=== PATIENT | male | born 1945 | race Caucasian/White ===

== ENCOUNTER 2019-04-06 11:06 | Outpatient (CLI) | payer MEDICARE, OTHER, SELFPAY | END 2019-04-06 11:07 | disposition home or self-care (01) | LOC: RT 11:09 | PROVIDERS: Family Provider Family Medicine; PCP Family Medicine; Visit Provider Internal Medicine Critical Care Medicine | DX: J45.909 Unspecified asthma, uncomplicated (principal) | CPT/HCPCS: 94010; 94726; 94729 ==

== ENCOUNTER 2019-06-13 12:30 | Outpatient (CLI) | payer MEDICARE, OTHER, SELFPAY ==
--- NOTE | 2019-06-13 13:30 | USCV_ITS ---
Reid Nieves Age: 73 Gender: M : 1945 Exam Date: 06/13/2019 12:54 Ordering Phys: Mariposa Alfonso MD Technologist: Ricki Gaytan Exam Location: [facility] [place] Indication: BOVINE MV PROS BP: 150 / 92 HR: 45 Rhythm: Sinus Technical Quality: Suboptimal MEASUREMENTS (Male / Female) Normal Values 2D ECHO LV Diastolic Diameter PLAX 4.7 cm 4.2 - 5.9 / 3.9 - 5.3 cm LV Systolic Diameter PLAX 3.0 cm IVS Diastolic Thickness 0.9 cm 0.6 - 1.0 / 0.6 - 0.9 cm IVS Systolic Thickness 1.4 cm LVPW Diastolic Thickness 1.3 cm 0.6 - 1.0 / 0.6 - 0.9 cm LVPW Systolic Thickness 1.3 cm LVOT Diameter 2.3 cm LV Ejection Fraction 2D Teich 64.4 % LV Ejection Fraction MOD 2C 66.9 % LV Ejection Fraction 2C AL 67.4 % LA Diameter 5.3 cm LA Width 4.3 cm LA Height 5.3 cm RA Width 4.5 cm RA Height 5.1 cm M-MODE LV Diastolic Diameter MM 5.9 cm 4.2 - 5.9 / 3.9 - 5.3 cm LV Systolic Diameter MM 3.9 cm LV Ejection Fraction MM Teich 61.5 % IVS Diastolic Thickness MM 1.2 cm 0.6 - 1.0 / 0.6 - 0.9 cm IVS Systolic Thickness MM 1.9 cm LVPW Diastolic Thickness MM 1.2 cm 0.6 - 1.0 / 0.6 - 0.9 cm LVPW Systolic Thickness MM 1.8 cm RV Diastolic Diameter MM 2.0 cm Aortic Annulus Diameter 4.5 cm LA Ao Ratio MM 1.2 DOPPLER AV Peak Velocity 119.0 cm/s LVOT Peak Velocity 94.0 cm/s AV Area Cont Eq vti 2.8 cm squared AV Area Cont Eq pk 3.3 cm squared MV Peak Velocity 177.0 cm/s MV Area PHT 1.2 cm squared Mitral E to A Ratio 1.0 MV E' Velocity 5.0 cm/s Mitral E to MV E' Ratio 33.3 Mitral E to LV E' Lateral Ratio 30.1 Mitral E to LV E' Septal Ratio 38.2 TR Peak Velocity 374.0 cm/s TR Peak Gradient 55.8 mmHg TV Peak E Velocity 97.0 cm/s Right Atrial Pressure 3.0 mmHg Pulmonary Artery Systolic Pressu 59.0 mmHg PV Peak Velocity 84.0 cm/s FINDINGS Left Ventricle Normal left ventricular size, systolic function and wall thickness, with no regional wall motion abnormalities. Grade I/IV diastolic dysfunction (abnormal relaxation filling pattern), normal to mildly elevated filling pressures. Left ventricular ejection fraction is estimated at 55 %. Right Ventricle Normal right ventricular size and systolic function. Moderate pulmonary hypertension, RVSP 59 mmHg. Right Atrium Mildly increased right atrial size. Left Atrium Mildly increased left atrial size. Mitral Valve The mitral valve appears to be a bioprosthetic device. It is properly seated and appears to be functioning normally. No obvious stenosis or regurgitation. Aortic Valve Structurally normal trileaflet aortic valve. Trace aortic valve regurgitation. Tricuspid Valve Structurally normal tricuspid valve. Moderate tricuspid valve regurgitation. Pulmonic Valve Pulmonic valve not well visualized. Moderate pulmonary valve regurgitation. Pericardium Normal pericardium without effusion. Aorta Normal ascending aorta dimension. CONCLUSIONS Normal left ventricular size, systolic function and wall thickness, with no regional wall motion abnormalities. Grade I/IV diastolic dysfunction (abnormal relaxation filling pattern), normal to mildly elevated filling pressures. Left ventricular ejection fraction is estimated at 55 %. Normal right ventricular size and systolic function. Moderate pulmonary hypertension, RVSP 59 mmHg. Mildly increased right atrial size. Mildly increased left atrial size. The mitral valve appears to be a bioprosthetic device. It is properly seated and appears to be functioning normally. No obvious stenosis or regurgitation. Dr. Nicko Sanders MD (Electronically Signed) Final Date: 14 June 2019 07:59 S
--- NOTE | 2019-06-13 14:30 | CT_ITS ---
WS: [id number] CT CHEST TECHNIQUE: Noncontrast CT of the chest with coronal and sagittal reformatted images. CLINICAL INFORMATION: shortness of breath COMPARISON: CT June 19, 2017 DLP: 919.[address] scans at [facility] use at least one of these dose optimization techniques: automat ed exposure control; mA and/or kV adjustment per patient size (includes targeted exams where dose is matched to clinical indication); or iterative reconstruction. FINDINGS: Again seen are multiple right upper and right middle lobe noncalcified subcentimeter pulmonary nodule s. Largest nodules measure approximately 4 mm. Notable nodule right lung apex measuring 4 mm is uncha nged. 2 anterior right upper lobe nodules have progressed slightly in size with a new nodule today. T he largest measures 4.1 mm. Stable tiny right middle lobe and subcentimeter nodules along the right fissure. New tiny nodule demarcus g the right minor fissure. Additional new groundglass nodules right lower lobe measuring 3-4 mm. No definite left-sided nodules. No mediastinal or hilar lymphadenopathy. Postoperative changes at the GE junction. Small esophageal hiatal hernia. Adrenal glands are normal.Mitral valve prosthesis. Mild aortic calcification. Prior sternotomy. Thoracic kyphosis with chronic anterior wedging in the m id thoracic spine. IMPRESSION: 1. Several noncalcified pulmonary nodules in the right upper lobe, right middle lobe and right lower lobe the largest measuring approximately 4 mm. A few new noncalcified nodules today. Recommend 6-12 month follow-up. 2. No mediastinal or hilar lymphadenopathy. 3. Postoperative changes at the GE junction with small esophageal hiatal hernia. 4. Prior sternotomy with mitral valve prosthesis.
== END 2019-06-13 12:31 | disposition home or self-care (01) ==
LOC: US 12:31
PROVIDERS: Family Provider Family Medicine; PCP Family Medicine; Visit Provider Internal Medicine Critical Care Medicine
DX: R06.02 Shortness of breath (principal); R91.8 Other nonspecific abnormal finding of lung field; K44.9 Diaphragmatic hernia without obstruction or gangrene; I51.7 Cardiomegaly
CPT/HCPCS: 71250; 93306

== ENCOUNTER → 2019-10-10 14:00 | Outpatient (BNVA) | payer MEDICARE, OTHER, SELFPAY | PROVIDERS: Family Provider Family Medicine; PCP Family Medicine; Visit Provider Family Medicine | DX: Z11.59 Encounter for screening for other viral diseases (principal) | CPT/HCPCS: 87635 ==

== ENCOUNTER → 2019-10-11 14:36 | Outpatient (BNVA) | payer MEDICARE, OTHER, SELFPAY | PROVIDERS: Family Provider Family Medicine; PCP Family Medicine; Visit Provider Nurse Practitioner Family | DX: R05 Cough (principal); R06.00 Dyspnea, unspecified; R50.9 Fever, unspecified; Z11.59 Encounter for screening for other viral diseases | CPT/HCPCS: 87635 ==

== ENCOUNTER 2020-02-20 13:41 | Outpatient (CLI) | payer MEDICARE, OTHER, SELFPAY ==
--- NOTE | 2020-02-20 13:46 | XR_ITS ---
WS: [id number] PA and lateral chest, 02/20/2020 Clinical Data: Shortness of breath Comparison: PA and lateral chest, 06/03/2017. Findings: No nodules, masses or effusions are seen. The diaphragms are flattened. There are midline s ternotomy sutures. There is an artificial valve in position. The heart is normal and the aortic arch shows calcification. No nodules, masses or effusions are seen. There is degenerative change of the th oracic vertebral bodies. XR/XR chest 2V* [id number] Impression: Atherosclerosis and hyperinflation.
== END 2020-02-20 13:42 | disposition home or self-care (01) ==
LOC: RAD 13:44
PROVIDERS: Family Provider Family Medicine; PCP Family Medicine; Visit Provider Internal Medicine Critical Care Medicine
DX: R06.00 Dyspnea, unspecified (principal); I70.90 Unspecified atherosclerosis
CPT/HCPCS: 71046

== ENCOUNTER 2020-03-19 09:51 | Outpatient (CLI) | payer MEDICARE, OTHER, SELFPAY ==
[2020-03-19 10:28] LABS: Basophils % 0.4 %; Eosinophils # 0.1 10^3/uL (0.0-0.8); Eosinophils % 1.3 %; Hematocrit 42.2 % (42.0-52.0); Hemoglobin 13.6 g/dL (11.7-16.6); Lymphocytes # 1.5 10^3/uL (0.8-4.8); Lymphocytes % 28.1 %; Mean Corpuscular HGB Conc 32.2 g/dL (30.0-36.0); Mean Corpuscular Hemoglobin 30.9 pg (28.0-34.0); Mean Corpuscular Volume 95.9 fL (80-94); Mean Platelet Volume 11.8 fL (7.4-10.4); Monocytes # 0.7 10^3/uL (0.2-0.9); Monocytes % 13.1 %; Neutrophils # 3.04 10^3/uL (1.8-7.7); Neutrophils % 56.9 %; Nucleated Red Blood Cells % 0 %; Platelet Count 202 10^3/cmm (130-400); Red Cell Distribution Width 12.2 % (12.1-15.1); White Blood Count 5.3 10^3/uL (4.0-10.0)
== END 2020-03-19 09:52 | disposition home or self-care (01) ==
PROVIDERS: PCP Family Medicine; Visit Provider Internal Medicine Critical Care Medicine
DX: R06.02 Shortness of breath (principal)
CPT/HCPCS: 36415; 85025

== ENCOUNTER 2020-06-06 09:13 | Outpatient (CLI) | payer MEDICARE, OTHER, SELFPAY ==
--- NOTE | 2020-06-06 09:30 | USCV_ITS ---
Reid Nieves Age: 74 Gender: M : 1945 Exam Date: 06/06/2020 09:29 Ordering Phys: Papi Blanca M.D ([email or web address]) Technologist: Arabella Levin Exam Location: [facility] [place] Indication: MV REPLACEMENT BP: 118 / 86 HR: 50 Rhythm: Sinus Technical Quality: Adequate MEASUREMENTS (Male / Female) Normal Values 2D ECHO LV Diastolic Diameter PLAX 4.4 cm 4.2 - 5.9 / 3.9 - 5.3 cm LV Systolic Diameter PLAX 2.7 cm LV Chamber Size 3.7 cm IVS Diastolic Thickness 1.6 cm 0.6 - 1.0 / 0.6 - 0.9 cm IVS Systolic Thickness 1.5 cm LVPW Diastolic Thickness 1.7 cm 0.6 - 1.0 / 0.6 - 0.9 cm LVPW Systolic Thickness 2.7 cm RV Chamber Size 3.7 cm LVOT Diameter 2.1 cm LV Ejection Fraction 2D Teich 57.8 % LV Ejection Fraction MOD 2C 48.3 % LV Ejection Fraction 2C AL 50.3 % LA Diameter 5.7 cm LA Width 4.8 cm LA Height 4.2 cm RA Width 4.1 cm RA Height 4.7 cm Aorta at Sinotubular Diameter 3.6 cm M-MODE LV Diastolic Diameter MM 6.3 cm 4.2 - 5.9 / 3.9 - 5.3 cm LV Systolic Diameter MM 4.5 cm LV Ejection Fraction MM Teich 53.8 % IVS Diastolic Thickness MM 1.8 cm 0.6 - 1.0 / 0.6 - 0.9 cm IVS Systolic Thickness MM 1.5 cm LVPW Diastolic Thickness MM 1.6 cm 0.6 - 1.0 / 0.6 - 0.9 cm LVPW Systolic Thickness MM 1.5 cm Aortic Annulus Diameter 4.2 cm LA Ao Ratio MM 1.5 MV E Point Septal Separation 0.9 cm DOPPLER AV Peak Velocity 134.0 cm/s LVOT Peak Velocity 103.0 cm/s AV Area Cont Eq vti 2.8 cm squared AV Area Cont Eq pk 2.6 cm squared MV Peak Velocity 212.0 cm/s MV Area PHT 1.3 cm squared Mitral E to A Ratio 2.6 MV E' Velocity 137.8 cm/s Mitral E to MV E' Ratio 38.3 Mitral E to LV E' Lateral Ratio 41.7 Mitral E to LV E' Septal Ratio 35.4 TR Peak Velocity 244.1 cm/s TR Peak Gradient 23.8 mmHg TR Mean Velocity 180.7 cm/s TR Mean Gradient 15.5 mmHg TR Velocity Time Integral 98.6 cm TV Peak E Velocity 43.0 cm/s PV Peak Velocity 65.0 cm/s RV Acceleration Time 0.1 s RV Ejection Time 0.4 s RV AcT/ET 0.3 FINDINGS Left Ventricle Normal left ventricular size. LV systolic function is normal with EF of 50-55%. Septal motion is consistent with prior cardiac surgery. Diastolic function is abnormal Right Ventricle The right ventricle is normal in size and function. Right Atrium Not well visualized Left Atrium The left atrium is dilated Mitral Valve There is a thickened bioprosthetic mitral valve with mild to moderate mitral stenosis and a mean gradient of 6 mmHg across mitral valve. There is no mitral regurgitation. Aortic Valve Thickened aortic valve without significant sclerosis. There is no aortic regurgitation. Tricuspid Valve Structurally normal tricuspid valve without significant stenosis or regurgitation. Insufficient TR jet to calculate RVSP Pulmonic Valve Grossly normal Pericardium Normal pericardium without effusion. Aorta Aortic root is dilated CONCLUSIONS LV systolic function is normal with EF of 50 to 55%. Diastolic function is abnormal. There is a thickened bioprosthetic mitral valve with mild to moderate mitral stenosis and a mean gradient of 6 mmHg across mitral valve. There is no mitral regurgitation. Aortic root is dilated Compared to prior echocardiogram from 06/13/2019, patient now has mild to moderate mitral stenosis Papi Blanca MD (Electronically Signed) Final Date: 17 June 2020 16:56 S
== END 2020-06-06 09:14 | disposition home or self-care (01) ==
LOC: US 09:15
PROVIDERS: PCP Family Medicine; Visit Provider Internal Medicine
DX: Z95.4 Presence of other heart-valve replacement (principal); I05.9 Rheumatic mitral valve disease, unspecified
CPT/HCPCS: 93306

== ENCOUNTER 2020-06-18 10:52 | Outpatient (CLI) | payer MEDICARE, OTHER, SELFPAY ==
[2020-06-18 12:06] LABS: Alanine Aminotransferase 18 U/L (0-41); Alkaline Phosphatase 86 IU/L (40-130); Aspartate Amino Transferase 27 U/L (0-40); Blood Urea Nitrogen 14 mg/dL (8-23); Calcium 8.8 mg/dL (8.5-10.5); Carbon Dioxide 25 mmol/L (22-29); Chloride 108 mmol/L (98-107); Globulin 2.8 g/dL (1.3-4.6); Glucose 83 mg/dL (65-115); Osmolality Calculated 292 mOsm/kg (285-295); Sodium 141 mmol/L (136-145); Total Bilirubin 1.1 mg/dL (0.15-1.2); Total Protein 6.8 g/dL (6.6-8.7)
== END 2020-06-18 10:53 | disposition home or self-care (01) ==
LOC: LAB 11:00
PROVIDERS: PCP Family Medicine; Visit Provider Internal Medicine Critical Care Medicine
DX: R06.02 Shortness of breath (principal)
CPT/HCPCS: 36415; 80053

== ENCOUNTER → 2020-07-02 16:50 | Outpatient (BNVA) | payer MEDICARE, OTHER, SELFPAY | PROVIDERS: PCP Family Medicine; Visit Provider Internal Medicine | DX: R55 Syncope and collapse (principal); I73.9 Peripheral vascular disease, unspecified; I51.89 Other ill-defined heart diseases; G47.33 Obstructive sleep apnea (adult) (pediatric); Z99.89 Dependence on other enabling machines and devices; I27.20 Pulmonary hypertension, unspecified; R06.02 Shortness of breath; N40.0 Benign prostatic hyperplasia without lower urinary tract symptoms; R06.00 Dyspnea, unspecified; Z95.3 Presence of xenogenic heart valve; Z87.891 Personal history of nicotine dependence | CPT/HCPCS: 80048; 83880; 84153 ==

== ENCOUNTER 2020-07-05 12:06 | Emergency (ER) | payer MEDICARE, OTHER, SELFPAY ==
[2020-07-05 12:45] VITALS: BP 120/75; PULSE 51; RESP 18; TEMP 36.8; O2SAT 97; BMI 33.7
--- NOTE | 2020-07-05 13:45 | ED_ITS ---
HPI - Male Genitourinary General: Chief complaint: Urogenital-Male Stated complaint: CANNOT URINATE Time Seen by Provider: 07/05/20 13:11 Limitations: no limitations History of Present Illness: HPI Narrative: 74-year-old male who last urinated at 8 PM last night was only a small dribble. He has been having some urinary issues recently saw his provider who had ordered some outpatient labs and is scheduling the patient to see urology but they cannot get in for about a month. He is never had known prostate problems. Patient's wonder if he possibly has infections as he felt chilled the past 2 days denies any nausea vomiting amanda rrhea chest pain cough fevers or shortness of breath however. He feels like his bladder is distended Review of Systems General: Reports: 10 or more systems reviewed and unremarkable except in HPI and below Narrative: General: denies fatigue, fever some mild chills HEENT: denies ear pain, denies nasal congestion, denies vision changes, denies sore throat Neck: denies masses or pain Resp: denies cough, denies shortness of breath, denies pleuritic pain Cardio: denies chest pain, denies edema GI: denies abdominal pain, denies N/V/D, denies black/tarry or bloody stools : denies hematuria, denies dysuria + hesitancy, distension, decreased output Neuro: denies headache, denies dizziness, denies motor or sensory changes Musculoskeletal: denies pain, denies swelling Skin: denies rashes Psych: denies SI or HI Endocrine: denies thyroid symptoms, denies lymphadenopathy all over ROS reviewed and patient denies [facility] ED PFSH: Medical History Diastolic dysfunction Hordeolum externum (stye) DENAE on CPAP PAD (peripheral artery disease) Pulmonary HTN Syncope Surgical History H/O mitral valve replacement with tissue graft Family History Mother Stroke Grandfather CAD (coronary artery disease) Father Tuberculosis Social History Smoking and tobacco status: former smoker Quit status (tobacco): has quit using tobacco Year quit tobacco: 1966 - 1PPD x 2 Years Second hand smoke exposure: No Smoking risk assessment/counseling performed?: No Alcohol intake: former Year of sobriety/quit date alcohol: 1985 Desire information about alcohol rehabilitation?: No Counseling given: No Desire information about substance/drug rehabilitation?: No Counseling given: No Lives independently: Yes Household members: spouse Marital status: service: Yes branch: [employer] Current occupational status: retired History of recent travel: No Current gender identity: Male Physical Exam Narrative: EXAM NARRATIVE: General: a/o/3, no distress Head: atraumatic HEENT: normal eyes, normal conjunctiva, normal hearing, normal external nose, normal mouth, mucous membranes moist Neck: FROM, trachea midline Chest: normal expansion, no gross deformities Resp: normal speech, no retractions, no accessory muscle use, CTA bilaterally Cardio: regular rate and rhythm and no murmur, no peripheral edema, normal peripheral pulses GI: soft, suprapubic fullness and tenderness, no guarding normal BS : deferred Musculoskeletal: FROM, no pain or gross deformities Neuro: a/o appropriate for age, no gross motor or sensory deficitys, CN II-XII grossly intact, normal coordination, normal speech Skin: no rashes Psych: cooperative, normal mood and effect Course Vital Signs: Vital signs: Vital Signs Temperature 98.3 F 07/05/20 12:45 Pulse Rate 51 L 07/05/20 12:45 Respiratory Rate 18 07/05/20 12:45 Blood Pressure 120/75 07/05/20 12:45 Pulse Oximetry 97 07/05/20 12:45 MDM - Male MDM Narrative: Medical decision making narrative: Reviewed patient's labs he had chemistries done yesterday as well as a PSA which was normal. He does appear to be distended we will place a Gongora catheter and then once he is drained we will clamp it and send off a fresh urine patient would like a CBC checked as he was afraid maybe has infection he does have a bovine valve replacement and wants to make sure he does not have any type of other issues associated with that. We will place him on Flomax Patient had a liter of urine out his urinalysis was negative his CBC was normal I do not see indication for antibiotics at this time discussed with the patient and his they need to either call their primary care or call urology to have the catheter removed in about a week we can put him on daily Flomax Differential Diagnosis: Urogenital Male Differential Diagnosis: Likely urinary tract infection and acute retention of urine Medical Records: Attestation: I reviewed the patient's medical records. Lab Data: Attestation: I reviewed the patient's lab results. Labs: Lab Results 07/05/20 07/05/20 Range/Units 13:53 13:53 WBC 6.6 (4.0-10.0) 10^3/ uL RBC 4.59 (4.1-5.3) 10^6/u L Hgb 14.2 (11.7-16.6) g/dL Hct 42.8 (42.0-52.0) % MCV 93.2 (80-94) fL MCH 30.9 (28.0-34.0) pg MCHC 33.2 (30.0-36.0) g/dL RDW 12.5 (12.1-15.1) % Plt Count 234 (130-400) 10^3/c mm MPV 11.7 H (7.4-10.4) fL Neut % (Auto) 56.1 % Lymph % (Auto) 30.4 % [place] % (Auto) 12.0 % Eos % (Auto) 0.9 % Baso % (Auto) 0.3 % Neut # (Auto) 3.72 (1.8-7.7) 10^3/u L Lymph # (Auto) 2.0 (0.8-4.8) 10^3/u L [place] # (Auto) 0.8 (0.2-0.9) 10^3/u L Eos # (Auto) 0.1 (0.0-0.8) 10^3/u L Baso # (Auto) 0.0 (0.0-0.1) 10^3/u L Nucleated RBC % (a uto) 0 % Nucleated RBCs # 0.0 /100WBC Urine Color Yellow (Yellow) Urine Appearance Clear (CLEAR) Urine pH 5 (5-7) Ur Specific Gravit y 1.015 (1.005-1.030) Urine Protein Neg (Negative) Urine Glucose (UA) Norm (Normal) Urine Ketones Negative (Negative) Urine Blood Neg (Negative) Urine Nitrate Negative (Negative) Urine Bilirubin Neg (Negative) Urine Urobilinogen 1 H (Negative) mg/dL Ur Leukocyte Flavia ase Negative (Negative) Urine RBC None (0-2) /hpf Urine WBC None (0-5) /hpf Ur Squamous Epith Cells None (0-5) /hpf Amorphous Sediment Not Reportable Urine Bacteria None (NONE) /hpf Discharge Plan Discharge Patient Disposition: Home Clinical Impression: Acute urinary retention Condition: Stable Prescriptions: New tamsulosin [Flomax] 0.4 mg capsule 0.4 mg PO DAILY Qty: 30 RF: 0 No Action albuterol sulfate [ProAir HFA] 90 mcg/actuation HFA aerosol inhaler 2 puff INHALATION Q6H PRN (Reason: Shortness Of Breath) RF: 0 tramadol 50 mg tablet 50 mg PO PRN RF: 0 aspirin 81 mg tablet,delayed release (DR/EC) 81 mg PO QAM RF: 0 simvastatin 20 mg tablet 20 mg PO QPM RF: 0 cyanocobalamin (vitamin B-12) 2 tab PO DAILY RF: 0 albuterol sulfate 2.5 mg /3 mL (0.083 %) solution for nebulization 2.5 mg inhalation TID RF: 0 Symbicort 160-4.5 mcg/actuation HFA aerosol inhaler 2 puff INHALATION BID 30 Days Qty: 10.2 RF: 3 Alive Mens 1 tab PO DAILY RF: 0 Viagra 25 mg Tablet 25 mg PO PRN RF: 0 trazodone 150 mg tablet 150 mg PO BEDTIME PRN (Reason: Sleep) RF: 0 magnesium-potassium 1 tab PO DAILY RF: 0 vitamin E 3 cap PO DAILY RF: 0 spironolactone 25 mg tablet 25 mg PO QPM RF: 0 montelukast 10 mg tablet 10 mg PO QPM RF: 0 Lasix 20 mg tablet 20 mg PO QAM RF: 0 metoprolol tartrate 25 mg tablet 12.5 mg PO BID RF: 0 Discharge Orders: Discharge ED (Routine); Ordered 07/05/20 Ordered By: Nicole Beyer Referrals: Markel Valero MD [Primary Care Provider] - Patient Instructions: Urinary Retention in Men (ED), Gongora Catheter Placement and Care (ED) Activity Restrictions/Additional Instructions: You were given your first dose of medication in the ER so start your prescription tomorrow. Recommend you call your primary care provider and/or urology and let them know you had a catheter placed and we recommend removal in about a week and it is recommended that you have a morning appointment for removal that way you have the day to determine if you have any further urinary retention. Return to the ER if you have catheter problems and/or if you notice pain or bleeding or if it is not draining Continue your other medications Thank you for choosing [facility] for your healthcare needs today. Please realize this is an emergency room and that we are providing you with a medical screening exam and this may not be complete and all inclusive of all the testing and or work up that you may need to determine your ailment or severity of your illness. It is very important that you follow up as instructed or that you return to the Emergency Department should you have concerns or if your condition changes or worsens in any way. Coding Level of Care Code ED Check Inspector for Roberto Carlos Boogie
[2020-07-05 14:03] LABS: Basophils % 0.3 %; Eosinophils # 0.1 10^3/uL (0.0-0.8); Eosinophils % 0.9 %; Hematocrit 42.8 % (42.0-52.0); Hemoglobin 14.2 g/dL (11.7-16.6); Lymphocytes % 30.4 %; Mean Corpuscular HGB Conc 33.2 g/dL (30.0-36.0); Mean Corpuscular Hemoglobin 30.9 pg (28.0-34.0); Mean Corpuscular Volume 93.2 fL (80-94); Mean Platelet Volume 11.7 fL (7.4-10.4); Monocytes # 0.8 10^3/uL (0.2-0.9); Neutrophils # 3.72 10^3/uL (1.8-7.7); Neutrophils % 56.1 %; Nucleated Red Blood Cells % 0 %; Platelet Count 234 10^3/cmm (130-400); Red Blood Count 4.59 10^6/uL (4.1-5.3); Red Cell Distribution Width 12.5 % (12.1-15.1); White Blood Count 6.6 10^3/uL (4.0-10.0)
[2020-07-05 14:16] LABS: Bilirubin Urine Neg (Negative); Blood Urine Neg (Negative); Glucose Urine UA Norm (Normal); Ketones Urine Negative (Negative); Leukocyte Esterase Urine Negative (Negative); Nitrate Urine Negative (Negative); Protein Urine Neg (Negative); Specific Gravity, Urine 1.015 (1.005-1.030); Urine Appearance Clear (CLEAR); Urine Color Yellow (Yellow); Urobilinogen Urine 1 mg/dL (Negative); pH Urine 5 (5-7)
[2020-07-05] MEDS: tamsulosin 0.4 mg Capsule PO (15:29)
--- NOTE | 2020-07-05 15:32 | PC.NURSE ---
Pt reports continued relief, no needs identified, will continue to monitor.
== END 2020-07-05 16:07 | disposition home or self-care (01) ==
PROVIDERS: Emergency Provider Emergency Medicine; PCP Family Medicine
DX: R33.9 Retention of urine, unspecified (principal); Z79.82 Long term (current) use of aspirin; Z87.891 Personal history of nicotine dependence
CPT/HCPCS: 51702; 81001; 85025; 99283

== ENCOUNTER 2020-07-16 21:46 | Emergency (ER) | payer MEDICARE, OTHER, SELFPAY ==
[2020-07-16 21:54] VITALS: BP 121/73; PULSE 92; RESP 17; O2SAT 98; BMI 33.1
[2020-07-16 22:53] LABS: Add Urine Microscopic? YES; Bilirubin Urine Neg (Negative); Blood Urine 3+ (Negative); Glucose Urine UA Norm (Normal); Ketones Urine Negative (Negative); Leukocyte Esterase Urine Negative (Negative); Nitrate Urine Negative (Negative); Protein Urine 2+ (Negative); Urine Color Red (Yellow); Urobilinogen Urine 1 mg/dL (Negative); pH Urine 5 (5-7)
[2020-07-16 22:54] LABS: RBC Urine TOO NUMEROUS TO CNT /hpf (0-2); Squamous Epithelial Cell Urine 0-4 /hpf (0-5); Urine Appearance Bloody (CLEAR); WBC Urine 0-4 /hpf (0-5)
[2020-07-16 22:55] LABS: Add Urine Culture? Yes; Bacteria Urine TRACE /hpf
[2020-07-16 23:14] VITALS: BP 154/104; RESP 18; O2SAT 98
--- NOTE | 2020-07-17 00:06 | W.ED.MALEGU ---
HPI - Male Genitourinary General: Chief complaint: Urogenital-Male Stated complaint: GENTIAL BLEEDING Time Seen by Provider: 07/16/20 21:50 History of Present Illness: Associated symptoms: Reports hematuria; Deny dysuria, nausea or vomiting Review of Systems Const: Denies: fever(s), chills, body aches, change in appetite, change in weight, fatigue, malaise or diaphoresis Eyes: Denies: change in vision, blurry vision, blind spots, photophobia, eye discomfort, eye discharge, eye redness, floaters or seeing flashes ENMT: Denies: throat pain, uvular edema, enlarged tonsils, odynophagia, hoarseness, mouth pain, swelling of lips/tongue, oral sores, bleeding gums, dental pain, dry mouth, ear or mastoid pain, ear discharge, change in hearing, tinnitus, disequilibrium, nasal discharge, nasal congestion, post nasal drip or sinus pain Card: Denies: chest pain, palpitations, irregular heart rhythm, edema, swelling of feet/ankles, lightheadedness, syncope, pre-syncope, dyspnea on exertion, orthopnea, leg pain with exertion or acrocyanosis Resp: Denies: dyspnea, productive cough, non-productive cough, wheezing, stridor, pain on inspiration, change in phlegm color, hemoptysis or chest congestion GI: Denies: abdominal pain, nausea, vomiting, hematemesis, dysphagia, diarrhea, constipation, GI cramping, change in bowel habits or rectal pain : Reports: difficulty urinating and hematuria; Denies: flank pain, dysuria, urinary frequency, urinary urgency or urinary hesitancy Musc: Denies: neck pain, back pain, extremity pain, extremity swelling, joint pain, joint swelling, joint redness, joint warmth or deformity Skin/Breast: Denies: rash, pruritus, erythema, sores, new lesions, changes in skin color or dry skin Neuro: Denies: headache(s), numbness in extremities, weakness in extremities, sensory changes, lack of coordination, difficulty walking, frequent falls, dizziness, vertigo, confusion, behavioral changes, Slurred speech present, difficulty communicating thoughts or seizure-like activity Psych: Denies: anxiety, depression, suicidal ideation or homicidal ideation Endo: Denies: polyuria, polydipsia, tired all the time, cold intolerance, excessive sweating, flushing, hot flashes or heat intolerance Sukhdev/Lymph: Denies: easy bruising, easy bleeding, petechiae, purpura, enlarged lymph nodes or tender lymph nodes All/Imm: Denies: urticaria, throat swelling, tongue swelling, facial swelling, acute wheezing or itchy eyes PFSH ED PFSH: Medical History Diastolic dysfunction Hordeolum externum (stye) DENAE on CPAP PAD (peripheral artery disease) Pulmonary HTN Syncope Surgical History H/O mitral valve replacement with tissue graft Family History Mother Stroke Grandfather CAD (coronary artery disease) Father Tuberculosis Social History Smoking and tobacco status: former smoker Quit status (tobacco): has quit using tobacco Year quit tobacco: 1965 - PD x 2 Years Second hand smoke exposure: No Smoking risk assessment/counseling performed?: No Alcohol intake: former Year of sobriety/quit date alcohol: 1985 Desire information about alcohol rehabilitation?: No Counseling given: No Desire information about substance/drug rehabilitation?: No Counseling given: No Lives independently: Yes Household members: spouse Marital status: service: Yes branch: [employer] Current occupational status: retired History of recent travel: No Current gender identity: Male Physical Exam Const: COMMON NORMALS: patient oriented x3 HENMT: COMMON NORMALS: normocephalic and atraumatic HEAD & SCALP: normocephalic and atraumatic THROAT: no uvular edema Eye: COMMON NORMALS: Equal, round and reactive pupils present PUPIL: Yes Equal, round and reactive pupils present Neck/C-Spine: COMMON NORMALS: full ROM Lymph: LYMPHATIC: no lymphadenopathy noted and no lymphedema noted Chest: COMMONS NORMALS: normal inspection of the chest Resp: COMMON NORMALS: normal respiratory effort, No retractions, No use of accessory muscles, clear to auscultation bilaterally and percussion normal AUSCULTATION: clear to auscultation bilaterally PERCUSSION: percussion normal Cardio: COMMON NORMALS: regular rate and regular rhythm RATE: regular rate RHYTHM: regular rhythm GI: COMMON NORMALS: Normal to inspection, nondistended, normoactive bowel sounds present, Soft to palpation, non-tender and no masses INSPECTION: Yes normal to inspection PALPATION: Yes Soft to palpation and Yes Bladder palpation abnormal PERCUSSION: normal to percussion : COMMON NORMALS: Yes no CVA tenderness and Yes normal external exam BLADDER/KIDNEY EXAM: Yes bladder normal to palpation, Yes no CVA tenderness and Yes Bladder palpation abnormal PENIS: normal penis Back/Pelvis: COMMON NORMALS: no CVA tenderness LUMBAR SPINE/LOWER BACK: Yes normal to inspection, Yes lumbar ROM normal and Yes ROM limited Extremity: COMMON NORMALS: normal to inspection, full ROM and capillary refill normal GENERAL: Yes normal exam except as noted Neuro: COMMON NORMALS: patient oriented x3, CN's II-XII intact bilaterally, moves all extremities, no focal motor deficits and no sensory deficits noted Psych: COMMON NORMALS: mental status grossly normal, Normal thought process present, cooperative, normal affect, speech normal, activity/motor behavior normal, denies hallucinations, denies homicidal ideation and denies suicidal ideation SPEECH: Yes normal speech THOUGHT PROCESS: Normal thought process present Skin: COMMON NORMALS: no rashes or lesions noted, no wounds, turgor normal, no jaundice, no petechiae and no mottling GENERAL SKIN EXAM: no rashes or lesions noted and turgor normal Course Vital Signs: Vital signs: Vital Signs Pulse Rate 92 07/16/20 21:54 Respiratory Rate 18 07/16/20 23:14 Blood Pressure 154/104 07/16/20 23:14 Pulse Oximetry 98 07/16/20 23:14 MDM - Male MDM Narrative: Medical decision making narrative: Pt is well appearing non toxic and in no acute distress. Pt had bartlett cath removed and has been passing blood clots since and is unable to urinate much more than a dribble per patient. We are unable to perform a bladder scan. I called and disucssed this case with Dr. Lopez who will see patient for follow up. Given patietns complaint, I iwll place a bartlett cath in and have him follow up with Lance. Pt abd soft and nontender there is no CVA tenderness. pt is a febrile. Lab Data: Labs: Lab Results 07/16/20 Range/Units 22:37 Urine Color Red (Yellow) Urine Appearance Bloody A (CLEAR) Urine pH 5 (5-7) Ur Specific Gravit y 1.020 (1.005-1.030) Urine Protein 2+ H (Negative) Urine Glucose (UA) Norm (Normal) Urine Ketones Negative (Negative) Urine Blood 3+ H (Negative) Urine Nitrate Negative (Negative) Urine Bilirubin Neg (Negative) Urine Urobilinogen 1 H (Negative) mg/dL Ur Leukocyte Flavia ase Negative (Negative) Urine RBC Too numerous to c nt H (0-2) /hpf Urine WBC 0-4 H (0-5) /hpf Ur Squamous Epith Cells 0-4 H (0-5) /hpf Amorphous Sediment Not Reportable Urine Bacteria Trace (NONE) /hpf Discharge Plan Discharge Patient Disposition: Home Clinical Impression: Acute retention of urine Hematuria Qualifiers: Hematuria type: gross Qualified Code(s): R31.0 - Gross hematuria Condition: Stable Prescriptions: No Action albuterol sulfate [ProAir HFA] 90 mcg/actuation HFA aerosol inhaler 2 puff INHALATION Q6H PRN (Reason: Shortness Of Breath) RF: 0 tramadol 50 mg tablet 50 mg PO PRN RF: 0 aspirin 81 mg tablet,delayed release (DR/EC) 81 mg PO QAM RF: 0 simvastatin 20 mg tablet 20 mg PO QPM RF: 0 cyanocobalamin (vitamin B-12) 2 tab PO DAILY RF: 0 albuterol sulfate 2.5 mg /3 mL (0.083 %) solution for nebulization 2.5 mg inhalation TID RF: 0 Symbicort 160-4.5 mcg/actuation HFA aerosol inhaler 2 puff INHALATION BID 30 Days Qty: 10.2 RF: 3 Alive Mens 1 tab PO DAILY RF: 0 Viagra 25 mg Tablet 25 mg PO PRN RF: 0 trazodone 150 mg tablet 150 mg PO BEDTIME PRN (Reason: Sleep) RF: 0 magnesium-potassium 1 tab PO DAILY RF: 0 vitamin E 3 cap PO DAILY RF: 0 spironolactone 25 mg tablet 25 mg PO QPM RF: 0 montelukast 10 mg tablet 10 mg PO QPM RF: 0 Lasix 20 mg tablet 20 mg PO QAM RF: 0 metoprolol tartrate 25 mg tablet 12.5 mg PO BID RF: 0 Flomax 0.4 mg capsule 0.4 mg PO DAILY Qty: 30 RF: 0 Discharge Orders: Discharge ED (Routine); Ordered 07/17/20 Ordered By: Michaelle Gilliam Referrals: Markel Valero MD [Primary Care Provider] - Discharge Diet: Advance as tolerated Discharge Activity: Increase activity as tolerated Patient Instructions: Opioid Safety Activity Restrictions/Additional Instructions: Please keep bartlett cath in place and call Dr. 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
[2020-07-17 01:04] VITALS: BP 100/59; PULSE 74; RESP 18; TEMP 36.7; O2SAT 98
== END 2020-07-17 01:05 | disposition home or self-care (01) ==
PROVIDERS: Emergency Provider Registered Nurse; PCP Family Medicine
DX: R31.0 Gross hematuria (principal); R33.9 Retention of urine, unspecified; Z79.82 Long term (current) use of aspirin; Z87.891 Personal history of nicotine dependence
CPT/HCPCS: 51702; 81001; 87086; 99283

== ENCOUNTER 2020-07-29 18:42 | Emergency (ER) | payer MEDICARE, OTHER, SELFPAY ==
[2020-07-29 19:11] VITALS: BP 115/75; PULSE 101; RESP 17; TEMP 37.6; O2SAT 97; BMI 33.0
--- NOTE | 2020-07-29 19:25 | XRR_ITS ---
PROCEDURE INFORMATION: Exam: XR Chest Exam date and time: 07/29/2020 7:29 PM Age: 74 years old Clinical indication: Fever; Prior surgery; Surgery date: 6+ months; Surgery type: Cabg TECHNIQUE: Imaging protocol: XR of the chest. Views: 1 view. COMPARISON: CR XR chest 2V* [id number] 02/20/2020 1:53 PM FINDINGS: Lungs: Unremarkable. No consolidation. Pleural spaces: Unremarkable. No pleural effusion. No pneumothorax. Heart/Mediastinum: Unremarkable. No cardiomegaly. Bones/joints: Stable sternotomy. Moderate thoracic spondylosis. XR/XR chest 1V portable [id number] IMPRESSION: No acute findings.
[2020-07-29 19:44] VITALS: BP 114/67; PULSE 91; RESP 19; O2SAT 94
[2020-07-29 20:00] VITALS: BP 114/67; PULSE 78; RESP 25; O2SAT 94
--- NOTE | 2020-07-29 20:08 | ED_ITS ---
HPI - Nausea/Vomiting/Diarrhea General: Chief complaint: Abdominal Pain Stated complaint: nausea Time Seen by Provider: 07/29/20 19:29 Source: patient Mode of arrival: ambulatory Limitations: no limitations History of Present Illness: HPI Narrative: 74-year-old male states that throughout the day he has been feeling weak having severe chills and nausea. He states that his temperature at home was 101 he just does not feel well. He denies any sick contacts. He states that he does have a history of urinary retention and has to self cath. He has some slight flank pain and pain at the base of his penis. Denies any testicle pain. Denies headache. Denies cough. Denies any diarrhea. Associated nausea: Yes Associated symtoms: Reports nausea; Denies chest pain, dysuria or headache(s) Review of Systems Const: Reports: fever(s) and chills Eyes: Denies: blurry vision or eye discomfort ENMT: Denies: throat pain or dental pain Card: Denies: chest pain Resp: Denies: dyspnea GI: Reports: nausea : Denies: dysuria Musc: Denies: neck pain or back pain Skin/Breast: Denies: rash Neuro: Denies: headache(s) Psych: Denies: depression Sukhdev/Lymph: Denies: easy bruising All/Imm: Denies: urticaria PFSH ED PFSH: Medical History BPH loc w urin obs/LUTS Diastolic dysfunction Hordeolum externum (stye) DENAE on CPAP PAD (peripheral artery disease) Pulmonary HTN Syncope Surgical History H/O mitral valve replacement with tissue graft Family History Mother Stroke Grandfather CAD (coronary artery disease) Father Tuberculosis Social History Smoking and tobacco status: former smoker Alcohol intake: former Year of sobriety/quit date alcohol: 1985 Marital status: service: Yes branch: [employer] Current occupational status: retired History of recent travel: No Physical Exam Const: COMMON NORMALS: no acute distress, patient oriented x3 and healthy appearing HENMT: COMMON NORMALS: normocephalic and atraumatic HEAD & SCALP: normocephalic and atraumatic Eye: COMMON NORMALS: Equal, round and reactive pupils present and EOMs intact bilaterally PUPIL: Yes Equal, round and reactive pupils present Neck/C-Spine: COMMON NORMALS: full ROM and supple Chest: COMMONS NORMALS: normal inspection of the chest and normal palpation of entire chest wall Resp: COMMON NORMALS: normal respiratory effort, No retractions, No use of accessory muscles and clear to auscultation bilaterally AUSCULTATION: clear to auscultation bilaterally Cardio: COMMON NORMALS: regular rate, regular rhythm and No murmurs present (Cardio) RATE: regular rate RHYTHM: regular rhythm GI: COMMON NORMALS: Normal to inspection, nondistended, normoactive bowel sounds present, Soft to palpation, non-tender and no masses PALPATION: Yes Soft to palpation Extremity: COMMON NORMALS: normal to inspection and full ROM Neuro: COMMON NORMALS: patient oriented x3, moves all extremities and no focal motor deficits Psych: COMMON NORMALS: mental status grossly normal, Normal thought process present and cooperative THOUGHT PROCESS: Normal thought process present Skin: COMMON NORMALS: no rashes or lesions noted and no wounds GENERAL SKIN EXAM: no rashes or lesions noted Course Vital Signs: Vital signs: Vital Signs Temperature 99.7 F H 07/29/20 19:11 Pulse Rate 78 07/29/20 20:00 Respiratory Rate 25 H 07/29/20 20:00 Blood Pressure 114/67 07/29/20 20:00 Pulse Oximetry 94 07/29/20 20:00 MDM - Nausea/Vomiting/Diarrhea MDM Narrative: Medical decision making narrative: Patient presents here with fever and is found to have an acute cystitis likely from self cathing. Will place patient on a week long of ciprofloxacin. Patient is not septic and his blood pressure has been stable his heart rates been normal. He is take Tylenol at home for fever. He is to follow-up with Dr. Arrieta and return if worsening. Lab Data: Labs: Lab Results 07/29/20 07/29/20 07/29/20 Range/Units 19:50 19:50 19:50 WBC 8.6 (4.0-10.0) 10^3/ uL RBC 4.12 (4.1-5.3) 10^6/u L Hgb 12.9 (11.7-16.6) g/dL Hct 38.9 L (42.0-52.0) % MCV 94.4 H (80-94) fL MCH 31.3 (28.0-34.0) pg MCHC 33.2 (30.0-36.0) g/dL RDW 12.5 (12.1-15.1) % Plt Count 212 (130-400) 10^3/c mm MPV 12.0 H (7.4-10.4) fL Neut % (Auto) 85.3 % Lymph % (Auto) 4.8 % Warrick % (Auto) 9.3 % Eos % (Auto) 0.1 % Baso % (Auto) 0.1 % Neut # (Auto) 7.31 (1.8-7.7) 10^3/u L Lymph # (Auto) 0.4 L (0.8-4.8) 10^3/u L Warrick # (Auto) 0.8 (0.2-0.9) 10^3/u L Eos # (Auto) 0.0 (0.0-0.8) 10^3/u L Baso # (Auto) 0.0 (0.0-0.1) 10^3/u L Nucleated RBC % (a uto) 0 % Nucleated RBCs # 0.0 /100WBC Sodium 137 (136-145) mmol/L Potassium 4.0 (3.5-5.1) mmol/L Chloride 105 (98-107) mmol/L Carbon Dioxide 20 L (22-29) mmol/L Anion Gap 16.0 (5-19) BUN 9 (8-23) mg/dL Creatinine 0.9 (0.7-1.2) mg/dL GFR Calculation Not Reportable Glucose 130 H (65-115) mg/dL Calculated Osmolal ity 284 L (285-295) mOsm/k g Lactate 1.6 (0.5-2.2) mmol/L Calcium 8.7 (8.5-10.5) mg/dL Total Bilirubin 0.8 (0.15-1.2) mg/dL AST 29 (0-40) U/L ALT 17 (0-41) U/L Alkaline Phosphata se 86 (40-130) IU/L Total Protein 6.9 (6.6-8.7) g/dL Albumin 4.2 (3.5-5.2) g/dL Globulin 2.7 (1.3-4.6) g/dL Urine Color (Yellow) Urine Appearance (CLEAR) Urine pH (5-7) Ur Specific Gravit y (1.005-1.030) Urine Protein (Negative) Urine Glucose (UA) (Normal) Urine Ketones (Negative) Urine Blood (Negative) Urine Nitrate (Negative) Urine Bilirubin (Negative) Urine Urobilinogen (Negative) mg/dL Ur Leukocyte Flavia ase (Negative) Urine RBC (0-2) /hpf Urine WBC (0-5) /hpf Ur Squamous Epith Cells (0-5) /hpf Amorphous Sediment Urine Bacteria (NONE) /hpf 07/29/20 Range/Units 20:00 WBC (4.0-10.0) 10^3/ uL RBC (4.1-5.3) 10^6/u L Hgb (11.7-16.6) g/dL Hct (42.0-52.0) % MCV (80-94) fL MCH (28.0-34.0) pg MCHC (30.0-36.0) g/dL RDW (12.1-15.1) % Plt Count (130-400) 10^3/c mm MPV (7.4-10.4) fL Neut % (Auto) % Lymph % (Auto) % Warrick % (Auto) % Eos % (Auto) % Baso % (Auto) % Neut # (Auto) (1.8-7.7) 10^3/u L Lymph # (Auto) (0.8-4.8) 10^3/u L Warrick # (Auto) (0.2-0.9) 10^3/u L Eos # (Auto) (0.0-0.8) 10^3/u L Baso # (Auto) (0.0-0.1) 10^3/u L Nucleated RBC % (a uto) % Nucleated RBCs # /100WBC Sodium (136-145) mmol/L Potassium (3.5-5.1) mmol/L Chloride (98-107) mmol/L Carbon Dioxide (22-29) mmol/L Anion Gap (5-19) BUN (8-23) mg/dL Creatinine (0.7-1.2) mg/dL GFR Calculation Glucose (65-115) mg/dL Calculated Osmolal ity (285-295) mOsm/k g Lactate (0.5-2.2) mmol/L Calcium (8.5-10.5) mg/dL Total Bilirubin (0.15-1.2) mg/dL AST (0-40) U/L ALT (0-41) U/L Alkaline Phosphata se (40-130) IU/L Total Protein (6.6-8.7) g/dL Albumin (3.5-5.2) g/dL Globulin (1.3-4.6) g/dL Urine Color Yellow (Yellow) Urine Appearance Sl cloudy A (CLEAR) Urine pH 5 (5-7) Ur Specific Gravit y 1.017 (1.005-1.030) Urine Protein Neg (Negative) Urine Glucose (UA) Norm (Normal) Urine Ketones Negative (Negative) Urine Blood Neg (Negative) Urine Nitrate Positive H (Negative) Urine Bilirubin Neg (Negative) Urine Urobilinogen Norm (Negative) mg/dL Ur Leukocyte Flavia ase 1+ H (Negative) Urine RBC 0-4 H (0-2) /hpf Urine WBC >100 H (0-5) /hpf Ur Squamous Epith Cells 0-4 H (0-5) /hpf Amorphous Sediment Not Reportable Urine Bacteria 4+ H (NONE) /hpf Imaging Data^: CXR: Attestation: I personally reviewed and interpreted this imaging study as follows: Radiologist's impression: No acute abnormality Discharge Plan Discharge Patient Disposition: Home Clinical Impression: Acute UTI Condition: Stable Prescriptions: New ciprofloxacin HCl 500 mg tablet 500 mg PO BID Qty: 14 RF: 0 No Action albuterol sulfate [ProAir HFA] 90 mcg/actuation HFA aerosol inhaler 2 puff INHALATION Q6H PRN (Reason: Shortness Of Breath) RF: 0 tramadol 50 mg tablet 50 mg PO PRN RF: 0 aspirin 81 mg tablet,delayed release (DR/EC) 81 mg PO QAM RF: 0 simvastatin 20 mg tablet 20 mg PO QPM RF: 0 cyanocobalamin (vitamin B-12) 2 tab PO DAILY RF: 0 albuterol sulfate 2.5 mg /3 mL (0.083 %) solution for nebulization 2.5 mg inhalation TID RF: 0 Symbicort 160-4.5 mcg/actuation HFA aerosol inhaler 2 puff INHALATION BID 30 Days Qty: 10.2 RF: 3 sulfamethoxazole-trimethoprim [Bactrim DS] 800-160 mg tablet 1 tab PO BID RF: 0 Flomax 0.4 mg capsule 0.4 mg PO BID Qty: 180 RF: 3 Alive Mens 1 tab PO DAILY RF: 0 Viagra 25 mg Tablet 25 mg PO PRN RF: 0 trazodone 150 mg tablet 150 mg PO BEDTIME PRN (Reason: Sleep) RF: 0 magnesium-potassium 1 tab PO DAILY RF: 0 vitamin E 3 cap PO DAILY RF: 0 spironolactone 25 mg tablet 25 mg PO QPM RF: 0 montelukast 10 mg tablet 10 mg PO QPM RF: 0 Lasix 20 mg tablet 20 mg PO QAM RF: 0 metoprolol tartrate 25 mg tablet 12.5 mg PO BID RF: 0 Discharge Orders: Discharge ED (Routine); Ordered 07/29/20 Ordered By: Darin Canada Referrals: Lonnie Arrieta MD [Physician] - 1-3 days Markel Valero MD [Primary Care Provider] - Discharge Diet: Advance as tolerated Discharge Activity: Resume usual activity Patient Instructions: Urinary Tract Infection in Men (ED) Coding Level of Care Code ED 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
[2020-07-29] MEDS: sodium chloride 0.9% 1,000 ML 999 ML IV ×2 (20:11→21:13)
[2020-07-29] MEDS: acetaminophen 325 mg Tablet 650 MG PO (20:11)
[2020-07-29 20:32] LABS: Alanine Aminotransferase 17 U/L (0-41); Albumin Level 4.2 g/dL (3.5-5.2); Alkaline Phosphatase 86 IU/L (40-130); Aspartate Amino Transferase 29 U/L (0-40); Basophils % 0.1 %; Blood Urea Nitrogen 9 mg/dL (8-23); Calcium 8.7 mg/dL (8.5-10.5); Carbon Dioxide 20 mmol/L (22-29); Chloride 105 mmol/L (98-107); Creatinine Clr Calc Pharmacy 84.4745; Eosinophils % 0.1 %; Globulin 2.7 g/dL (1.3-4.6); Glucose 130 mg/dL (65-115); Hematocrit 38.9 % (42.0-52.0); Hemoglobin 12.9 g/dL (11.7-16.6); Lymphocytes # 0.4 10^3/uL (0.8-4.8); Lymphocytes % 4.8 %; Mean Corpuscular HGB Conc 33.2 g/dL (30.0-36.0); Mean Corpuscular Hemoglobin 31.3 pg (28.0-34.0); Mean Corpuscular Volume 94.4 fL (80-94); Monocytes # 0.8 10^3/uL (0.2-0.9); Monocytes % 9.3 %; Neutrophils # 7.31 10^3/uL (1.8-7.7); Neutrophils % 85.3 %; Nucleated Red Blood Cells % 0 %; Osmolality Calculated 284 mOsm/kg (285-295); Platelet Count 212 10^3/cmm (130-400); Red Blood Count 4.12 10^6/uL (4.1-5.3); Red Cell Distribution Width 12.5 % (12.1-15.1); Sodium 137 mmol/L (136-145); Total Bilirubin 0.8 mg/dL (0.15-1.2); Total Protein 6.9 g/dL (6.6-8.7); White Blood Count 8.6 10^3/uL (4.0-10.0)
[2020-07-29 20:33] LABS: Bilirubin Urine Neg (Negative); Blood Urine Neg (Negative); Glucose Urine UA Norm (Normal); Ketones Urine Negative (Negative); Nitrate Urine Positive (Negative); Protein Urine Neg (Negative); Specific Gravity, Urine 1.017 (1.005-1.030); Urine Color Yellow (Yellow); pH Urine 5 (5-7)
[2020-07-29 20:33] LABS: Lactate (Lactic Acid level) 1.6 mmol/L (0.5-2.2)
[2020-07-29 20:34] LABS: Add Urine Microscopic? YES; Leukocyte Esterase Urine 1+ (Negative); Urobilinogen Urine Norm (Negative)
[2020-07-29 20:36] LABS: Add Urine Culture? Yes; Bacteria Urine 4+ /hpf; RBC Urine 0-4 /hpf (0-2); Squamous Epithelial Cell Urine 0-4 /hpf (0-5); WBC Urine >100 /hpf (0-5)
[2020-07-29] MEDS: cefTRIAXone 1,000 MG in sodium chloride 0.9% (plus) 50 ML 100 MG IV (21:13)
[2020-07-29 21:43] VITALS: BP 100/60; PULSE 70; RESP 20; O2SAT 96
[2020-07-29 22:00] VITALS: BP 88/57; PULSE 69; RESP 23; O2SAT 96
[2020-07-29 22:32] VITALS: BP 100/58; PULSE 70; RESP 24; O2SAT 96
== END 2020-07-29 22:34 | disposition home or self-care (01) ==
PROVIDERS: Emergency Provider Emergency Medicine; PCP Family Medicine
DX: N30.00 Acute cystitis without hematuria (principal); Z79.82 Long term (current) use of aspirin; Z87.891 Personal history of nicotine dependence; Z95.4 Presence of other heart-valve replacement; N40.1 Benign prostatic hyperplasia with lower urinary tract symptoms; N13.8 Other obstructive and reflux uropathy; R33.9 Retention of urine, unspecified
CPT/HCPCS: 71045; 80053; 81001; 83605; 85025; 87040; 87077; 87086; 87186; 96361; 96365; 99284; J0696; J7030

== ENCOUNTER 2020-07-30 04:14 | Inpatient (IN) | payer MEDICARE, OTHER, SELFPAY ==
[2020-07-30] VITALS (23 sets, daily range): BP systolic 90–133; BP diastolic 43–87; PULSE 54–97; RESP 15–34; TEMP 36.6–39.5; O2SAT 91–99; BMI 32.1
--- NOTE | 2020-07-30 04:19 | XRR_ITS ---
PROCEDURE INFORMATION: Exam: XR Chest Exam date and time: 07/30/2020 4:40 AM Age: 74 years old Clinical indication: Dyspnea; Prior surgery; Surgery date: 6+ months; Surgery type: Cabg; Additional info: SOB TECHNIQUE: Imaging protocol: XR of the chest. Views: 1 view. COMPARISON: CR (CHEST, ) 07/29/2020 8:14 PM FINDINGS: Tubes, catheters and devices: There is a mitral valve prosthesis in place. Lungs: Unremarkable. No consolidation. Pleural spaces: Unremarkable. No pleural effusion. No pneumothorax. Heart/Mediastinum: There is mild cardiomegaly. Bones/joints: There has been a median sternotomy. XR/XR chest 1V portable [id number] IMPRESSION: Mild cardiomegaly.
--- NOTE | 2020-07-30 04:19 | ECG_ITS ---
[facility] Test Date: 2020-07-30 Pat Name: Reid Nieves Department: Room: 253 Gender: Male Pre Coder: : 1945 Requested By: Darin Canada Order Number: [id number] Aab MD: Papi Blanca M.D. Measurements Intervals [place] Rate: 104 P: 64 MA: 167 QRS: 35 QRSD: 94 T: 46 QT: 352 QTc: 463 Interpretive Statements SINUS TACHYCARDIA WITH OCCASIONAL VENTRICULAR PREMATURE COMPLEXES Compared to ECG 10/09/2017 06:23:08 Ventricular premature complex(es) now present Electronically Signed On 07-30-2020 16:17:03 CDT by Papi Blanca M.D. [id number]
--- NOTE | 2020-07-30 04:22 | W.ED.FEVER ---
HPI - Fever General: Chief Complaint: Shortness of Breath/Dyspnea Stated Complaint: sob Time Seen by Provider: 07/30/20 04:15 Source: patient and EMS Mode of arrival: EMS Limitations: no limitations History of Present Illness: HPI Narrative: 74-year-old male seen here earlier yesterday with a fever and was found to have a urinary tract infection. He has to self cath. He had no signs of sepsis earlier with normal lactate and white blood cell count. States since being home he spiked another fever and has a temperature of 103 is having some shortness of breath as well. He does have sleep apnea. He is requiring 2 L here. Denies any cough. Denies any worsening improving factors. His blood pressure here is normal. Denies any pain anywhere. MD elicited complaint: fever Associated symptoms: Reports chills; Deny abdominal pain, chest pain, diarrhea, dysuria, headache(s), nausea or vomiting Review of Systems Const: Reports: fever(s) and chills Eyes: Denies: blurry vision or eye discomfort ENMT: Denies: throat pain or dental pain Card: Denies: chest pain Resp: Reports: dyspnea GI: Denies: abdominal pain, nausea, vomiting or diarrhea : Denies: dysuria Musc: Denies: neck pain or back pain Skin/Breast: Denies: rash Neuro: Denies: headache(s) Psych: Denies: depression Sukhdev/Lymph: Denies: easy bruising All/Imm: Denies: urticaria PFS ED PFSH: Medical History BPH loc w urin obs/LUTS Diastolic dysfunction Hordeolum externum (stye) DENAE on CPAP PAD (peripheral artery disease) Pulmonary HTN Syncope Surgical History H/O mitral valve replacement with tissue graft Family History Mother Stroke Grandfather CAD (coronary artery disease) Father Tuberculosis Social History Smoking and tobacco status: former smoker Alcohol intake: former Year of sobriety/quit date alcohol: 1985 Marital status: service: Yes branch: [employer] Current occupational status: retired History of recent travel: No Physical Exam Const: COMMON NORMALS: no acute distress, patient oriented x3 and healthy appearing HENMT: COMMON NORMALS: normocephalic and atraumatic HEAD & SCALP: normocephalic and atraumatic Eye: COMMON NORMALS: Equal, round and reactive pupils present and EOMs intact bilaterally PUPIL: Yes Equal, round and reactive pupils present Neck/C-Spine: COMMON NORMALS: full ROM and supple Chest: COMMONS NORMALS: normal inspection of the chest and normal palpation of entire chest wall Resp: COMMON NORMALS: No retractions, No use of accessory muscles and clear to auscultation bilaterally EFFORT & INSPECTION: Yes tachypneic AUSCULTATION: clear to auscultation bilaterally Cardio: COMMON NORMALS: regular rate, regular rhythm and No murmurs present (Cardio) RATE: regular rate RHYTHM: regular rhythm GI: COMMON NORMALS: Normal to inspection, nondistended, normoactive bowel sounds present, Soft to palpation, non-tender and no masses PALPATION: Yes Soft to palpation Extremity: COMMON NORMALS: normal to inspection and full ROM Neuro: COMMON NORMALS: patient oriented x3, moves all extremities and no focal motor deficits Psych: COMMON NORMALS: mental status grossly normal, Normal thought process present and cooperative THOUGHT PROCESS: Normal thought process present Skin: COMMON NORMALS: no rashes or lesions noted and no wounds GENERAL SKIN EXAM: no rashes or lesions noted Course Vital Signs: Vital signs: Vital Signs Temperature 103.1 F H 07/30/20 04:14 Pulse Rate 91 07/30/20 04:57 Respiratory Rate 34 H 07/30/20 04:57 Blood Pressure 125/75 07/30/20 04:57 Pulse Oximetry 97 07/30/20 04:57 MDM - Fever MDM Narrative: Medical decision making narrative: Patient presents here with sepsis from a acute UTI. Patient's blood pressure and lactate and white count are all normal. Patient was seen earlier return with higher fever spoke to hospitalist will admit at this time to treat his UTI. Patient given IV Rocephin. X-ray here shows no pneumonia. He has been stable on the ER. Lab Data: Labs: Lab Results 07/30/20 07/30/20 07/30/20 Range/Units 04:30 04:30 04:30 WBC 6.3 (4.0-10.0) 10^3/ uL RBC 3.84 L (4.1-5.3) 10^6/u L Hgb 12.0 (11.7-16.6) g/dL Hct 36.7 L (42.0-52.0) % MCV 95.6 H (80-94) fL MCH 31.3 (28.0-34.0) pg MCHC 32.7 (30.0-36.0) g/dL RDW 12.6 (12.1-15.1) % Plt Count 175 (130-400) 10^3/c mm MPV 11.4 H (7.4-10.4) fL Neut % (Auto) 90.0 % Lymph % (Auto) 7.0 % Graves % (Auto) 2.4 % Eos % (Auto) 0.2 % Baso % (Auto) 0.2 % Neut # (Auto) 5.71 (1.8-7.7) 10^3/u L Lymph # (Auto) 0.4 L (0.8-4.8) 10^3/u L Graves # (Auto) 0.2 (0.2-0.9) 10^3/u L Eos # (Auto) 0.0 (0.0-0.8) 10^3/u L Baso # (Auto) 0.0 (0.0-0.1) 10^3/u L Nucleated RBC % (a uto) 0 % Nucleated RBCs # 0.0 /100WBC Specimen Type Sample Site ABG pH (7.35-7.45) ABG pCO2 (35-45) mmHg ABG pO2 (80.0-100.0) mmH g ABG HCO3 (22-26) mmol/L ABG Base Excess (-2.0-2.0) mmol/ L Myke Test Hematocrit (42-52) % O2 Delivery Device O2 Liters/Min % FiO2 % Install And Repair Technician ID Sodium 141 (136-145) mmol/L Potassium 4.1 (3.5-5.1) mmol/L Chloride 110 H (98-107) mmol/L Carbon Dioxide 19 L (22-29) mmol/L Anion Gap 16.1 (5-19) BUN 9 (8-23) mg/dL Creatinine 1.0 (0.7-1.2) mg/dL GFR Calculation Not Reportable Glucose 123 H (65-115) mg/dL Calculated Osmolal ity 292 (285-295) mOsm/k g Lactic Acid 1.5 (0.5-2.2) mmol/L Calcium 8.2 L (8.5-10.5) mg/dL Total Bilirubin 1.5 H (0.15-1.2) mg/dL AST 25 (0-40) U/L ALT 17 (0-41) U/L Alkaline Phosphata se 82 (40-130) IU/L Troponin T Baselin e (0-15) ng/L NT-Pro-B Natriuret Pep 564 H (0-450) pg/mL Total Protein 6.1 L (6.6-8.7) g/dL Albumin 3.9 (3.5-5.2) g/dL Globulin 2.2 (1.3-4.6) g/dL 07/30/20 07/30/20 Range/Units 04:30 05:10 WBC (4.0-10.0) 10^3/ uL RBC (4.1-5.3) 10^6/u L Hgb (11.7-16.6) g/dL Hct (42.0-52.0) % MCV (80-94) fL MCH (28.0-34.0) pg MCHC (30.0-36.0) g/dL RDW (12.1-15.1) % Plt Count (130-400) 10^3/c mm MPV (7.4-10.4) fL Neut % (Auto) % Lymph % (Auto) % Graves % (Auto) % Eos % (Auto) % Baso % (Auto) % Neut # (Auto) (1.8-7.7) 10^3/u L Lymph # (Auto) (0.8-4.8) 10^3/u L Graves # (Auto) (0.2-0.9) 10^3/u L Eos # (Auto) (0.0-0.8) 10^3/u L Baso # (Auto) (0.0-0.1) 10^3/u L Nucleated RBC % (a uto) % Nucleated RBCs # /100WBC Specimen Type Arterial Sample Site Radial, right ABG pH 7.44 (7.35-7.45) ABG pCO2 29.4 L (35-45) mmHg ABG pO2 75.2 L (80.0-100.0) mmH g ABG HCO3 19.8 L (22-26) mmol/L ABG Base Excess -3.3 L (-2.0-2.0) mmol/ L Myke Test Pos Hematocrit 37.5 L (42-52) % O2 Delivery Device Nc O2 Liters/Min 2.0 % FiO2 28.0 % Install And Repair Technician ID [email or web address] Sodium (136-145) mmol/L Potassium (3.5-5.1) mmol/L Chloride (98-107) mmol/L Carbon Dioxide (22-29) mmol/L Anion Gap (5-19) BUN (8-23) mg/dL Creatinine (0.7-1.2) mg/dL GFR Calculation Glucose (65-115) mg/dL Calculated Osmolal ity (285-295) mOsm/k g Lactic Acid (0.5-2.2) mmol/L Calcium (8.5-10.5) mg/dL Total Bilirubin (0.15-1.2) mg/dL AST (0-40) U/L ALT (0-41) U/L Alkaline Phosphata se (40-130) IU/L Troponin T Baselin e 38 H (0-15) ng/L NT-Pro-B Natriuret Pep (0-450) pg/mL Total Protein (6.6-8.7) g/dL Albumin (3.5-5.2) g/dL Globulin (1.3-4.6) g/dL Imaging Data^: CXR: Attestation: I personally reviewed and interpreted this imaging study as follows: My impression: No acute abnormality Discharge Plan Discharge Patient Disposition: Admitted As Inpatient Admit Provider: Patrick Martinez Clinical Impression: Acute UTI, Sepsis Condition: Stable Coding Level of Care Code ED Animal Care Taker for g Fwd Exam Comprehensive
[2020-07-30 04:44] LABS: Basophils % 0.2 %; Eosinophils % 0.2 %; Hematocrit 36.7 % (42.0-52.0); Lymphocytes # 0.4 10^3/uL (0.8-4.8); Mean Corpuscular HGB Conc 32.7 g/dL (30.0-36.0); Mean Corpuscular Hemoglobin 31.3 pg (28.0-34.0); Mean Corpuscular Volume 95.6 fL (80-94); Mean Platelet Volume 11.4 fL (7.4-10.4); Monocytes # 0.2 10^3/uL (0.2-0.9); Monocytes % 2.4 %; Neutrophils # 5.71 10^3/uL (1.8-7.7); Nucleated Red Blood Cells % 0 %; Platelet Count 175 10^3/cmm (130-400); Red Blood Count 3.84 10^6/uL (4.1-5.3); Red Cell Distribution Width 12.6 % (12.1-15.1); White Blood Count 6.3 10^3/uL (4.0-10.0)
[2020-07-30] MEDS: ondansetron 2 mg/ML SDV 2 mL 4 MG IVP (04:46)
[2020-07-30] MEDS: acetaminophen 500 mg Tablet 1000 MG PO (04:51)
[2020-07-30] MEDS: cefTRIAXone 1,000 MG in sodium chloride 0.9% (plus) 50 ML 100 MG IV (04:51)
[2020-07-30 05:08] LABS: Lactic Sepsis W/Reflex 1.5 mmol/L (0.5-2.2)
[2020-07-30 05:10] LABS: Troponin(5th) Baseline 38 ng/L (0-15)
[2020-07-30 05:15] LABS: ABG PCO2 29.4 mmHg (35-45); ABG PH Result 7.44 (7.35-7.45); Arterial Blood Gas Hematocrit 37.5 % (42-52); Base Excess ABG -3.3 mmol/L (-2.0-2.0); Blood Gas Allen Test Pos; Blood Gas Sample Site Radial, right; Blood Gas Sample Type Arterial; HCO3 ABG 19.8 mmol/L (22-26); Oxygen Device NC; PO2 ABG 75.2 mmHg (80.0-100.0)
[2020-07-30 05:19] LABS: Alanine Aminotransferase 17 U/L (0-41); Albumin Level 3.9 g/dL (3.5-5.2); Alkaline Phosphatase 82 IU/L (40-130); Anion Gap 16.1 (5-19); Aspartate Amino Transferase 25 U/L (0-40); Blood Urea Nitrogen 9 mg/dL (8-23); Calcium 8.2 mg/dL (8.5-10.5); Carbon Dioxide 19 mmol/L (22-29); Chloride 110 mmol/L (98-107); Globulin 2.2 g/dL (1.3-4.6); Glucose 123 mg/dL (65-115); NT Pro B Type Natriuretic Pept 564 pg/mL (0-450); Osmolality Calculated 292 mOsm/kg (285-295); Potassium 4.1 mmol/L (3.5-5.1); Sodium 141 mmol/L (136-145); Total Bilirubin 1.5 mg/dL (0.15-1.2); Total Protein 6.1 g/dL (6.6-8.7)
--- NOTE | 2020-07-30 05:36 | P.HP_ITS ---
Providers/Chief Complaint Admitting Physician: Patrick Martinez Primary Care Provider: Markel Valero MD Chief Complaint: sob History of Present Illness Reid Nieves is a 74 year old male with past medical history of sleep apnea, pulmonary arterial hypertension, chronic urinary obstruction, BPH, doing self- catheterization 4 times a day who is presenting with fever and chills which started couple of days ago and progressively got worse. Reports associated nausea. No vomiting. Denies diarrhea. The patient has fever and mild tachycardia on presentation. Slightly hypoxic. Denies back pain. No chest pain, shortness of breath, cough, palpitations. Denies similar episodes in the past. He was given Rocephin in the emergency room and discharged home with prescription for ciprofloxacin earlier today. However came back with the same complaints shortly. Blood and urine cultures are obtained. He is slightly confused and lethargic on presentation. Denies abdominal pain. No focal deficits of sensory loss. No problems with speech. Review of Systems General: Reports: 10 or more systems reviewed and unremarkable except in HPI and below Medications/Allergies Home Medications Medication Instructions Recorded Confirmed Last Taken Type aspirin 81 mg tablet,delayed 81 mg PO QAM 03/21/19 07/23/20 07/05/20 History release simvastatin 20 mg tablet 20 mg PO QPM 03/21/19 07/23/20 07/04/20 History tramadol 50 mg tablet 50 mg PO PRN 03/21/19 07/23/20 Unknown History albuterol sulfate 90 mcg/actuation 2 puff INHALATION Q6H PRN 06/06/19 07/23/20 Unknown History aerosol inhaler cyanocobalamin (vitamin B-12) 2 tab PO DAILY 01/26/20 07/23/20 Unknown History albuterol sulfate 2.5 mg INHALATION TID 06/18/20 07/23/20 07/04/20 History budesonide-formoterol HFA 160 2 puff INHALATION BID 30 Days 06/18/20 07/23/20 Unknown Rx mcg-4.5 mcg/actuation aerosol #10.2 g inhaler Alive Mens 1 tab PO DAILY 07/05/20 07/23/20 Unknown History Lasix 20 mg PO QAM 07/05/20 07/23/20 07/05/20 History magnesium-potassium 1 tab PO DAILY 07/05/20 07/23/20 Unknown History metoprolol tartrate 12.5 mg PO BID 07/05/20 07/23/20 07/05/20 06:30 History 12.5mg montelukast 10 mg PO QPM 07/05/20 07/23/20 Unknown History sildenafil [Viagra] 25 mg PO PRN 07/05/20 07/23/20 Unknown History spironolactone 25 mg PO QPM 07/05/20 07/23/20 Unknown History trazodone 150 mg PO BEDTIME PRN 07/05/20 07/23/20 Unknown History vitamin E 3 cap PO DAILY 07/05/20 07/23/20 Unknown History sulfamethoxazole 800 1 tab PO BID 07/20/20 07/23/20 Unknown History mg-trimethoprim 160 mg tablet tamsulosin 0.4 mg capsule 0.4 mg PO BID #180 cap 07/20/20 07/23/20 Unknown Rx ciprofloxacin HCl 500 mg PO BID #14 tab 07/29/20 Unknown Rx Allergies Allergy/AdvReac Type Severity Reaction Status Date / Time latex Allergy ALGY-Hives Verified 07/29/20 19:21 PFSH Acute PFSH: Medical History BPH loc w urin obs/LUTS Diastolic dysfunction Hordeolum externum (stye) DENAE on CPAP PAD (peripheral artery disease) Pulmonary HTN Syncope Surgical History H/O mitral valve replacement with tissue graft Family History Mother Stroke Grandfather CAD (coronary artery disease) Father Tuberculosis Social History Smoking and tobacco status: former smoker Alcohol intake: former Year of sobriety/quit date alcohol: 1985 Marital status: service: Yes branch: [employer] Current occupational status: retired History of recent travel: No Vitals/I&O/Wt Last Vital Signs Temp 103.1 F H 07/30/20 04:14 Pulse 91 07/30/20 04:57 Resp 34 H 07/30/20 04:57 BP 125/75 07/30/20 04:57 Pulse Ox 97 07/30/20 04:57 Weight last 48 hrs Weight 104.326 kg Physical Exam Narrative: EXAM NARRATIVE: The patient is weak and lethargic. Responsive. Follows all instructions. Normal speech. No focal deficits. Skin is warm and dry. Dry mucous membranes Eyes PERRL, extraocular muscles are intact Neck supple. No JVD Lungs are clear. No respiratory distress Heart S1, S2, regular Abdomen soft, distended, obese, nontender, bowel sounds are present. No rebound. Extremities no edema cyanosis or calf tenderness bilaterally Moves all extremities. Data : 07/30/20 04:30 07/30/20 04:30 Other Labs: Laboratory Results WBC 6.3 10^3/uL (4.0-10.0) 07/30/20 04:30 RBC 3.84 10^6/uL (4.1-5.3) L 07/30/20 04:30 Hgb 12.0 g/dL (11.7-16.6) 07/30/20 04:30 Hct 36.7 % (42.0-52.0) L 07/30/20 04:30 MCV 95.6 fL (80-94) H 07/30/20 04:30 MCH 31.3 pg (28.0-34.0) 07/30/20 04:30 MCHC 32.7 g/dL (30.0-36.0) 07/30/20 04:30 RDW 12.6 % (12.1-15.1) 07/30/20 04:30 Plt Count 175 10^3/cmm (130-400) 07/30/20 04:30 MPV 11.4 fL (7.4-10.4) H 07/30/20 04:30 Neut % (Auto) 90.0 % 07/30/20 04:30 Lymph % (Auto) 7.0 % 07/30/20 04:30 [place] % (Auto) 2.4 % 07/30/20 04:30 Eos % (Auto) 0.2 % 07/30/20 04:30 Baso % (Auto) 0.2 % 07/30/20 04:30 Neut # (Auto) 5.71 10^3/uL (1.8-7.7) 07/30/20 04:30 Lymph # (Auto) 0.4 10^3/uL (0.8-4.8) L 07/30/20 04:30 [place] # (Auto) 0.2 10^3/uL (0.2-0.9) 07/30/20 04:30 Eos # (Auto) 0.0 10^3/uL (0.0-0.8) 07/30/20 04:30 Baso # (Auto) 0.0 10^3/uL (0.0-0.1) 07/30/20 04:30 Nucleated RBC % (auto) 0 % 07/30/20 04:30 Nucleated RBCs # 0.0 /100WBC 07/30/20 04:30 Specimen Type Arterial 07/30/20 05:10 Sample Site Radial, right 07/30/20 05:10 ABG pH 7.44 (7.35-7.45) 07/30/20 05:10 ABG pCO2 29.4 mmHg (35-45) L 07/30/20 05:10 ABG pO2 75.2 mmHg (80.0-100.0) L 07/30/20 05:10 ABG HCO3 19.8 mmol/L (22-26) L 07/30/20 05:10 ABG Base Excess -3.3 mmol/L (-2.0-2.0) L 07/30/20 05:10 Myke Test Pos 07/30/20 05:10 Hematocrit 37.5 % (42-52) L 07/30/20 05:10 O2 Delivery Device Nc 07/30/20 05:10 O2 Liters/Min 2.0 % 07/30/20 05:10 FiO2 28.0 % 07/30/20 05:10 Machine Tool Technician Instructor ID [email or web address] 07/30/20 05:10 Sodium 141 mmol/L (136-145) 07/30/20 04:30 Potassium 4.1 mmol/L (3.5-5.1) 07/30/20 04:30 Chloride 110 mmol/L (98-107) H 07/30/20 04:30 Carbon Dioxide 19 mmol/L (22-29) L 07/30/20 04:30 Anion Gap 16.1 (5-19) 07/30/20 04:30 BUN 9 mg/dL (8-23) 07/30/20 04:30 Creatinine 1.0 mg/dL (0.7-1.2) 07/30/20 04:30 GFR Calculation Not Reportable 07/30/20 04:30 Glucose 123 mg/dL (65-115) H 07/30/20 04:30 Calculated Osmolality 292 mOsm/kg (285-295) 07/30/20 04:30 Lactic Acid 1.5 mmol/L (0.5-2.2) 07/30/20 04:30 Calcium 8.2 mg/dL (8.5-10.5) L 07/30/20 04:30 Total Bilirubin 1.5 mg/dL (0.15-1.2) H 07/30/20 04:30 AST 25 U/L (0-40) 07/30/20 04:30 ALT 17 U/L (0-41) 07/30/20 04:30 Alkaline Phosphatase 82 IU/L (40-130) 07/30/20 04:30 Troponin T Baseline 38 ng/L (0-15) H 07/30/20 04:30 NT-Pro-B Natriuret Pep 564 pg/mL (0-450) H 07/30/20 04:30 Total Protein 6.1 g/dL (6.6-8.7) L 07/30/20 04:30 Albumin 3.9 g/dL (3.5-5.2) 07/30/20 04:30 Globulin 2.2 g/dL (1.3-4.6) 07/30/20 04:30 A&P Additional A&P Information Reid Nieves is a 74 year old male with past medical history of sleep apnea, pulmonary arterial hypertension, chronic urinary obstruction, BPH, doing self- catheterization 4 times a day who is presenting with fever and chills. Sepsis secondary to urinary tract infection. Suspected urinary retention. Acute metabolic encephalopathy. Sepsis secondary to urinary tract infection. Has history of self- catheterization secondary to chronic urinary obstruction secondary to BPH. Gentle hydration. Gongora catheter placement. Continue Rocephin and await for the culture results. Acute metabolic encephalopathy probably secondary to urinary tract infection and urinary obstruction. Hypoxia most likely secondary to sleep apnea and pulmonary arterial hypertension. Continue supplemental oxygen. Respiratory therapy assessment. Appreciate help. Continue home medications. History of hypertension. Continue home medications. DVT prophylaxis. Lovenox. CODE STATUS. Full code according to him and his . The plan of care was discussed with the patient and his . They verbalized understanding and agreement. Attestations 2 Medical Necessity Statement*: Based on my assessment of patient's current condition and findings and plan of care I expect that he will be will spend more than 2 midnights in the hospital. Coding Level of Care Code Acute Folding Machine Tender for Roberto Carlos Boogie
[2020-07-30] MEDS: lactated ringers 1,000 ML 50 ML IV (06:55)
[2020-07-30] MEDS: enoxaparin 40 mg/0.4 mL Syringe SUBCUT (06:55)
--- NOTE | 2020-07-30 07:21 | PC.NURSE ---
ADMIT NOTE Pt received to floor from ER at 0640. Alert and oriented. Was seen in ER previously to this visit and says went home and went to bed. Woke up with shaking chills and SOB. Returned to the ER and now admitted. Denies pain or discomfort. O2 in place at 2l per NC. Says some SOB with exertion but is improved. IV fluids started at 50ml/hr rate. Gongora in place on admission. Pt says has been doing self caths 4 times a day last few weeks and sees Dr Arrieta. Started SQ Lovenox and given po Lasix and ASA ordered. Report to day shift nurse
[2020-07-30] MEDS: FUROsemide 20 mg Tablet PO (07:27)
[2020-07-30] MEDS: aspirin 81 mg EC Tablet PO (07:27)
[2020-07-30 07:31] LABS: Troponin 5 2HR 201.3 ng/L (0-15); Troponin 5 2HR Delta 163.3 ABS# (0-10)
--- NOTE | 2020-07-30 10:02 | CT_ITS ---
WS: [id number] CT ABDOMEN WITHOUT CONTRAST HISTORY: uri, r/o obstructive uropathy Contiguous single phase 5 mm axial imaging performed of the abdomen. Oral contrast has not been provi ded. Coronal and sagittal reformats are submitted. All CT scans at [facility] use at leas t one of these dose optimization techniques: automated exposure control; mA and/or kV adjustment per patient size (includes targeted exams where dose is matched to clinical indication); or iterative rec onstruction. CONTRAST: None DLP: 1202.98 mGy.cm COMPARISON: 11/01/2012 Lower thorax: Dependent changes at the lung bases. Heart is moderately enlarged. Mitral valve replace ment. Small hiatal hernia. Additional changes of fundoplication. Liver: Normal. No intrahepatic dilatation. Gallbladder: Mildly contracted. May be due to nonfasting state. No adjacent inflammation. Pancreas: Normal. Spleen: Normal. Adrenals: Normal. Right kidney: Normal size kidney with mild perinephric stranding. No hydronephrosis. Only the proxima l ureter is visualized. Left kidney: Mild perinephric stranding. No hydronephrosis or obstruction. Only the proximal ureter i s imaged. Aorta: Mild atherosclerosis with no aneurysm. GI tract: Visualized GI tract contains extensive diverticular disease and mild constipation. The appe ndix is partially visualized. No evidence for appendicitis. No adenopathy or free fluid. Abdominal wall: No hernia. Visualized osseous structures: Unremarkable. CT/CT abdomen wo con [id number] IMPRESSION: 1. No hydronephrosis or hydroureter to the mid ureteral level. The entire uret ers are not included on this abdomen CT. 2. Visualized colon contains numerous diverticula without diverticulitis. 3. Prior mitral valve replacement and fundoplication. 4. No ascites.
--- NOTE | 2020-07-30 10:04 | PM.PN ---
Subjective Subjective: Interval history: Admitted overnight. H&P and labs noted. Patient states he has been doing self-catheterization at home for last few months. He does self-catheterization 4 times a day. He has a history of bioprosthetic mitral valve. He started experiencing fever with chills and nausea since yesterday. Denies any chest pain at rest or exertion. Denies any shortness of breath or chest pain exertion. Examination he states he is feeling better. Is worried about infection as it can affect his heart valves. Denies any nausea or vomiting. T-max since admission 103.1 Fahrenheit. Vitals/I&O/Wt Last Vital Signs Temp 101.0 F H 07/30/20 07:20 Pulse 82 07/30/20 08:31 Resp 18 07/30/20 08:24 BP 90/57 07/30/20 07:20 Pulse Ox 95 07/30/20 08:24 07/29/20 07/30/20 07/30/20 22:59 06:59 14:59 Intake Total 50 / 50 445.833 / 445.833 Balance 50 / 50 445.833 / 445.833 Weight last 48 hrs Weight 104.326 kg Physical Exam Narrative: EXAM NARRATIVE: AOx3, no acute distress, normal speech. No focal deficits. Skin is warm and dry. Dry mucous membranes Eyes PERRL, extraocular muscles are intact Neck supple. No JVD Lungs are clear. No respiratory distress Heart S1, S2, regular Abdomen soft, distended, obese, nontender, bowel sounds are present. No rebound. Extremities no edema cyanosis or calf tenderness bilaterally Moves all extremities. Urinary Catheter Management^: Gongora: Cath Placed During This Visit: yes Reason for Continuing Indwelling Catheter: Acute Urinary Retention or Obstruction Urinary Catheter Date of Insertion: 07/30/20 Data : 07/30/20 04:30 07/30/20 04:30 A&P Assessment and plan (1) Sepsis: Status: Acute (2) Acute UTI: Status: Acute (3) NSTEMI (non-ST elevated myocardial infarction): Status: Acute (4) Status post mitral valve replacement with tissue valve: Status: Acute (5) Pulmonary HTN: Status: Acute (6) DENAE on CPAP: Status: Acute (7) Diastolic dysfunction: Status: Acute (8) BPH loc w urin obs/LUTS: Status: Acute Additional A&P Information Reid Nieves is a 74 year old male with past medical history of sleep apnea, pulmonary arterial hypertension, chronic urinary obstruction, BPH, doing self-catheterization 4 times a day who is presenting with fever and chills. Sepsis secondary to urinary tract infection.: Check CT abdomen without contrast to rule out obstructive uropathy. For now continue with IV ceftriaxone. Follow blood culture urine culture results for de-escalation of antibiotics. Check procalcitonin, MRSA swab, urine Legionella, bacterial antigen Keep mean arterial pressure over 65. Elevated troponins: Non-ST elevation VA: Can be type II VA as well given severe sepsis. Continue with aspirin. Increase atorvastatin to 80 mg daily. Start patient on full dose Lovenox 1 mg/kg body weight every 12 hourly. Left heart catheterization earlier in 2019 which showed normal coronaries. Patient would benefit from stress test once stable from sepsis point of view. Continue with beta-wiley. Hypertension: Goal blood pressure less than 140/90 mmHg. With means over 65. Blood pressure soft. Continue IV fluids at 50 cc/h while monitoring for fluid overload. Continue with home dose of metoprolol for now. We will continue to monitor blood pressures. Hypoxia secondary to sleep apnea and pulmonary hypertension: Oxygen supplementation keeping saturation over 90%. DuoNebs every 6 hours for now. No signs of CHF. Check proBNP. Patient seems very dehydrated along with severe sepsis so for now hold off on diuretics. Echocardiogram done in May shows an EF of 55 to 60% thickened bioprosthetic mitral valve with mild to moderate mitral stenosis with a mean gradient of 6, no MR, mild TR. For now hold off on repeating echocardiogram. Continue CPAP at night. Check iron panel, TSH. Start patient on oral iron supplementation. Full dose Lovenox will help with DVT prophylaxis. Cardiac diet. Full code. Move patient to cardiac stepdown unit given non-ST elevation VA. Attestations Medical Necessity Statement*: Requires further hospitalization for management of sepsis secondary to UTI, non-ST elevation VA Time Spent in Patient Care: Greater than 35 minutes (>than 50% of time spent in counselling and/or direct pt care on unit). Coding Level of Care Code Acute Cylinder Honer for Roberto Carlos Boogie Diagnoses Sepsis A41.9 Acute UTI N39.0 NSTEMI (non-ST elevated myocardial infarction) I21.4 Status post mitral valve replacement with tissue valve Z95.3 Pulmonary HTN I27.20 DENAE on CPAP G47.33; Z99.89 Diastolic dysfunction I51.89 BPH loc w urin obs/LUTS N40.1
--- NOTE | 2020-07-30 10:19 | ECG_ITS ---
[facility] ED Test Date: 2020-07-30 Pat Name: Reid Nieves Department: Room: 253 Gender: Male Archery Instructor: : 1945 Requested By: Darin Canada Order Number: [id number] Aba MD: Starr Swanson M.D. Measurements Intervals [place] Rate: 67 P: 52 MD: 204 QRS: 44 QRSD: 89 T: 52 QT: 432 QTc: 456 Interpretive Statements SINUS RHYTHM Compared to ECG 07/30/2020 05:07:21 Sinus tachycardia no longer present Ventricular premature complex(es) no longer present Electronically Signed On 07-31-2020 18:41:52 CDT by Starr Swanson M.D. [id number]
--- NOTE | 2020-07-30 10:28 | PC.CHAP ---
Pastoral Care Encounter/Spiritual Assessment Type of Contact [] Declined conference director visit [] Patient/Family/Request visit [] Outpatient visit [] Follow-up visit [] Physician referral [] Code/Alert [] Routine visit [] Staff referral [] Actively dying [] Patient sleeping [] Family support [] [] Out of room [] Palliative care [] [] Receiving care in room [] Pre-surgical visit [] Trauma [] Long length of stay [] ICU visit [] Other: Relational/Emotional Strength [] Patient feels connected with others/family/visitors/staff [] Distress [] Loneliness/isolation [] Abandonment Spirituality of Patient [x] Person of Scarlett [x] Attends Shinto of their Scarlett [x] Believes in Prayer [] Reads Bible or Moravian materials [] There are Spiritual issues to be addressed Kiln Transfer Operator Interventions [x] Prayer [] Active listening [] Non-anxious presence [] Spiritual/emotional support [] Crisis/trauma care [] Spiritual counseling [] Bereavement support [] Provided bereavement packet [] Provided Bible/devotional materials [] Provided toy/stuffed animal, coloring book to patient or family member [] Provided Communion [] Anointing/[place] [] Salvation [] Completed spiritual assessment [] Other: Impact on Illness or Injury [] Angry [] Fearful [] Anxious [] Often cries [] Exhaustion [] Unable to work [] Unable to attend restoration [] Unable to walk/stand [] Unable to read [] Unable to drive [] Unable to eat/drink [] Unable to sleep [] Unable to be with family [] Patient intubated [] Other: Summary Time spent with patient 10mon
--- NOTE | 2020-07-30 10:29 | PC.CHAP ---
Pastoral Care Encounter/Spiritual Assessment Type of Contact [] Declined trucker visit [] Patient/Family/Request visit [] Outpatient visit [] Follow-up visit [] Physician referral [] Code/Alert [] Routine visit [] Staff referral [] Actively dying [] Patient sleeping [] Family support [] [] Out of room [] Palliative care [] [] Receiving care in room [] Pre-surgical visit [] Trauma [] Long length of stay [] ICU visit [] Other: Relational/Emotional Strength [] Patient feels connected with others/family/visitors/staff [] Distress [] Loneliness/isolation [] Abandonment Spirituality of Patient [x] Person of Scarlett x[] Attends Anglican of their Scarlett [x] Believes in Prayer [] Reads Bible or Taoist materials [] There are Spiritual issues to be addressed Tuber Operator Interventions [x] Prayer [] Active listening [] Non-anxious presence [] Spiritual/emotional support [] Crisis/trauma care [] Spiritual counseling [] Bereavement support [] Provided bereavement packet [] Provided Bible/devotional materials [] Provided toy/stuffed animal, coloring book to patient or family member [] Provided Communion [] Anointing/[place] [] Salvation [] Completed spiritual assessment [] Other: Impact on Illness or Injury [] Angry [] Fearful [] Anxious [] Often cries [] Exhaustion [] Unable to work [] Unable to attend sikhism [] Unable to walk/stand [] Unable to read [] Unable to drive [] Unable to eat/drink [] Unable to sleep [] Unable to be with family [] Patient intubated [] Other: Summary Time spent with patient 10min
[2020-07-30] MEDS: metoprolol tartrate 25 mg Tablet 12.5 MG PO ×2 (10:35→18:02)
[2020-07-30] MEDS: tamsulosin 0.4 mg Capsule PO ×2 (10:36→18:02)
[2020-07-30] MEDS: enoxaparin 60 mg/0.6 mL Syringe SUBCUT (11:14)
[2020-07-30 11:45] LABS: Thyroid Stimulating Hormone 0.48 uIU/mL (0.27-4.20)
[2020-07-30 11:46] LABS: NT Pro B Type Natriuretic Pept 1653 pg/mL (0-450)
[2020-07-30 11:57] LABS: Iron 9 ug/dL (59-158); Percent Saturation 3.5 % (20-50); Total Iron Binding Capacity 255 mcg/dl; Unsaturated Iron Binding 246 ug/dL (112-347)
--- NOTE | 2020-07-30 16:16 | ECG_ITS ---
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 Measurements Intervals [place] Rate: 60 P: 48 [place]: 181 QRS: 51 QRSD: 90 T: 55 QT: 458 QTc: 458 Interpretive Statements SINUS RHYTHM Compared to ECG 07/30/2020 11:10:45 No significant changes Electronically Signed On 07-30-2020 18:53:23 CDT by Papi Blanca M.D. [id number]
[2020-07-30] MEDS: iron sucrose 200 MG in sodium chloride 0.9% (100 ml) 100 ML 220 MG IV (16:21)
[2020-07-30] MEDS: atorvastatin 40 mg Tablet 80 MG PO (18:03)
--- NOTE | 2020-07-30 19:31 | PC.NURSE ---
Received report from FERNANDO Ruiz. Patient resting in bed watching tv. Denies needs or pain at this time. No distress observed. Assessment completed as documented.
[2020-07-30] MEDS: acetaminophen 325 mg Tablet 650 MG PO (19:37)
[2020-07-30] MEDS: enoxaparin 100 mg/mL Syringe SUBCUT (20:11)
[2020-07-31] VITALS (18 sets, daily range): BP systolic 87–129; BP diastolic 54–74; PULSE 54–92; RESP 15–30; TEMP 36.4–36.9; O2SAT 92–99
[2020-07-31] MEDS: aspirin 81 mg EC Tablet PO (05:19)
[2020-07-31] MEDS: cefTRIAXone 1,000 MG in sodium chloride 0.9% (plus) 50 ML 100 MG IV (05:20)
[2020-07-31 05:26] LABS: Basophils % 0.2 %; Eosinophils # 0.1 10^3/uL (0.0-0.8); Eosinophils % 1.7 %; Hematocrit 32.8 % (42.0-52.0); Hemoglobin 10.6 g/dL (11.7-16.6); Lymphocytes # 1.1 10^3/uL (0.8-4.8); Lymphocytes % 13.9 %; Mean Corpuscular HGB Conc 32.3 g/dL (30.0-36.0); Mean Corpuscular Hemoglobin 31.5 pg (28.0-34.0); Mean Corpuscular Volume 97.3 fL (80-94); Monocytes # 0.8 10^3/uL (0.2-0.9); Monocytes % 9.7 %; Neutrophils # 5.95 10^3/uL (1.8-7.7); Neutrophils % 74.1 %; Nucleated Red Blood Cells % 0 %; Platelet Count 142 10^3/cmm (130-400); Red Blood Count 3.37 10^6/uL (4.1-5.3); Red Cell Distribution Width 13.1 % (12.1-15.1)
[2020-07-31 05:47] LABS: Alanine Aminotransferase 12 U/L (0-41); Alkaline Phosphatase 62 IU/L (40-130); Anion Gap 11.2 (5-19); Aspartate Amino Transferase 24 U/L (0-40); Blood Urea Nitrogen 14 mg/dL (8-23); Calcium 7.9 mg/dL (8.5-10.5); Carbon Dioxide 22 mmol/L (22-29); Chloride 110 mmol/L (98-107); Globulin 2.7 g/dL (1.3-4.6); Glucose 84 mg/dL (65-115); Osmolality Calculated 288 mOsm/kg (285-295); Potassium 4.2 mmol/L (3.5-5.1); Sodium 139 mmol/L (136-145); Total Bilirubin 0.9 mg/dL (0.15-1.2); Total Protein 5.7 g/dL (6.6-8.7)
[2020-07-31 06:00] LABS: Estmated Average Glucose 94; Hemoglobin A1C 4.9 % (4.0-6.0)
[2020-07-31] MEDS: tamsulosin 0.4 mg Capsule PO ×2 (08:19→18:13)
[2020-07-31] MEDS: enoxaparin 100 mg/mL Syringe SUBCUT ×2 (08:20→21:42)
[2020-07-31] MEDS: metoprolol tartrate 25 mg Tablet 12.5 MG PO ×2 (08:20→18:13)
[2020-07-31] MEDS: acetaminophen 325 mg Tablet 650 MG PO ×2 (08:32→14:57)
--- NOTE | 2020-07-31 09:26 | PC.CHAP ---
Pastoral Care Encounter/Spiritual Assessment Type of Contact [] Declined knife glazer visit [] Patient/Family/Request visit [] Outpatient visit [] Follow-up visit [] Physician referral [] Code/Alert [x] Routine visit [] Staff referral [] Actively dying [x] Patient sleeping [] Family support [] [] Out of room [] Palliative care [] [] Receiving care in room [] Pre-surgical visit [] Trauma [] Long length of stay [] ICU visit [] Other: Relational/Emotional Strength [] Patient feels connected with others/family/visitors/staff [] Distress [] Loneliness/isolation [] Abandonment Spirituality of Patient [] Person of Scarlett [] Attends Gnosticist of their Scarlett [] Believes in Prayer [] Reads Bible or Methodist materials [] There are Spiritual issues to be addressed Fleet Director Interventions [x] Prayer [] Active listening [] Non-anxious presence [] Spiritual/emotional support [] Crisis/trauma care [] Spiritual counseling [] Bereavement support [] Provided bereavement packet [] Provided Bible/devotional materials [] Provided toy/stuffed animal, coloring book to patient or family member [] Provided Communion [] Anointing/[place] [] Salvation [x] Completed spiritual assessment [] Other: Impact on Illness or Injury [] Angry [] Fearful [] Anxious [] Often cries [] Exhaustion [] Unable to work [] Unable to attend confucianism [] Unable to walk/stand [] Unable to read [] Unable to drive [] Unable to eat/drink [] Unable to sleep [] Unable to be with family [] Patient intubated [] Other: Summary Time spent with patient
--- NOTE | 2020-07-31 14:45 | ECG_ITS ---
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 Measurements Intervals [place] Rate: 85 P: SD: QRS: 31 QRSD: 89 T: 54 QT: 369 QTc: 440 Interpretive Statements SINUS RHYTHM Compared to ECG 07/30/2020 16:23:00 No significant change Electronically Signed On 07-31-2020 23:16:28 CDT by Starr Swanson M.D. [id number]
[2020-07-31] MEDS: ondansetron 2 mg/ML SDV 2 mL 4 MG IVP (15:14)
--- NOTE | 2020-07-31 15:25 | ECG_ITS ---
[facility] Test Date: 2020-07-31 Pat Name: Reid Nieves Department: Room: 105 Gender: Male Corporate Communications Manager: : 1945 Requested By: Paolo Stevenson Order Number: [id number] Aba MD: Starr Swanson M.D. Measurements Intervals [place] Rate: 94 P: 53 [place]: 163 QRS: 28 QRSD: 100 T: 55 QT: 364 QTc: 457 Interpretive Statements SINUS RHYTHM WITH OCCASIONAL VENTRICULAR PREMATURE COMPLEXES Compared to ECG 07/31/2020 14:51:08 Ventricular premature complex(es) now present Atrial fibrillation no longer present Electronically Signed On 07-31-2020 23:14:54 CDT by Starr Swansno M.D. [id number]
[2020-07-31 16:04] LABS: Troponin(5th) Baseline 138 ng/L (0-15)
[2020-07-31] MEDS: iron sucrose 200 MG in sodium chloride 0.9% (100 ml) 100 ML 220 MG IV (16:13)
--- NOTE | 2020-07-31 17:06 | ECG_ITS ---
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 Measurements Intervals [place] Rate: 80 P: 45 [place]: 175 QRS: 20 QRSD: 88 T: 50 QT: 387 QTc: 447 Interpretive Statements SINUS RHYTHM Compared to ECG 07/31/2020 15:30:09 Ventricular premature complex(es) no longer present Electronically Signed On 07-31-2020 18:39:53 CDT by Starr Swanson M.D. [id number]
[2020-07-31] MEDS: atorvastatin 40 mg Tablet 80 MG PO (18:13)
--- NOTE | 2020-07-31 21:01 | P.PN_ITS ---
Subjective Subjective: Interval history: During my visit denied chest pain, later in the day 06/16 chest discomfort, troponin, EKG series checked, troponin level lower than prior. EKG without suggestion of acute [place]. Possible atrial fibrillation. Vitals/I&O/Wt Last Vital Signs Temp 98.4 F 07/31/20 20:20 Pulse 58 L 07/31/20 20:20 Resp 24 H 07/31/20 20:20 BP 107/61 07/31/20 20:20 Pulse Ox 97 07/31/20 20:20 07/31/20 07/31/20 07/31/20 06:59 14:59 22:59 Intake Total 1084.167 / 2000.000 240 / 240 230 / 470 Output Total 700 / 1550 1070 / 1070 Balance 384.167 / 450.000 240 / 240 -840 / -600 Weight last 48 hrs Weight 104.326 kg Physical Exam Const: COMMON NORMALS: no acute distress and patient oriented x3 HENMT: COMMON NORMALS: oropharynx normal Neck/C-Spine: COMMON NORMALS: no JVD Resp: COMMON NORMALS: normal respiratory effort and clear to auscultation bilaterally AUSCULTATION: clear to auscultation bilaterally Cardio: COMMON NORMALS: no JVD, regular rhythm, S1 normal heart sound present, S2 normal heart sound present and No murmurs present (Cardio) RHYTHM: regular rhythm HEART SOUNDS: S1 normal heart sound present and S2 normal heart sound present GI: COMMON NORMALS: Normal to inspection, nondistended, normoactive bowel sounds present, Soft to palpation and non-tender PALPATION: Yes Soft to palpation Extremity: COMMON NORMALS: no joint enlargement and no pedal edema Neuro: COMMON NORMALS: patient oriented x3 and moves all extremities Skin: COMMON NORMALS: no rashes or lesions noted GENERAL SKIN EXAM: no rashes or lesions noted Urinary Catheter Management^: Gongora: Cath Placed During This Visit: yes Reason for Continuing Indwelling Catheter: Acute Urinary Retention or Obstr uction Urinary Catheter Date of Insertion: 07/30/20 Data : 07/31/20 05:09 07/31/20 05:09 A&P Assessment and plan (1) Sepsis: Sepsis improving, chills today, but did not have jose luis fever. Gram-negative rods growing in urine. Continue antibiotic. Status: Acute (2) Acute UTI: Gram-negative rods. Continue antibiotic coverage currently with Rocephin. Status: Acute (3) NSTEMI (non-ST elevated myocardial infarction): Discussed with him concern regarding troponin elevation. He is chest pain-free at the time of my visit. Appears had an episode of mild chest discomfort this afternoon up to 06/16. EKG without sign of acute [place]. Troponin lower than prior. Possible atrial fibrillation. Monitor on telemetry. Discussed with him benefit from stress test evaluation. Requested for tomorrow. Continue anticoagulation for now. CAD medications. Status: Acute (4) Status post mitral valve replacement with tissue valve: Status: Acute (5) Pulmonary HTN: Status: Acute (6) DENAE on CPAP: Could not sleep well overnight with the hospital BiPAP. Family are bringing his home BiPAP. Status: Acute (7) Diastolic dysfunction: Status: Acute (8) BPH loc w urin obs/LUTS: Intermittent self-catheterization in addition to spontaneous urination has been cutting down from 4 times daily to 3 times daily as per protocol provided to him by urology. Status: Acute Additional A&P Information Reid Nieves is a 74 year old male with past medical history of sleep apnea, pulmonary arterial hypertension, chronic urinary obstruction, BPH, doing self- catheterization 4 times a day who is presenting with fever and chills. Hypertension: Blood pressure soft. Not hypotensive. Low-dose metoprolol. Flomax. Monitor. Hypoxia secondary to sleep apnea and pulmonary hypertension LEO: on oral iron supplementation. Attestations Medical Necessity Statement*: Continue admission for assessment of management of complicated UTI, improving sepsis, possible NSTEMI. Coding Level of Care Code Acute Instructional Coach for [facility] [place] Diagnoses Sepsis A41.9 Acute UTI N39.0 NSTEMI (non-ST elevated myocardial infarction) I21.4 Status post mitral valve replacement with tissue valve Z95.3 Pulmonary HTN I27.20 DENAE on CPAP G47.33; Z99.89 Diastolic dysfunction I51.89 BPH loc w urin obs/LUTS N40.1
--- NOTE | 2020-07-31 21:06 | ECG_ITS ---
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 Measurements Intervals [place] Rate: 56 P: 54 [place]: 190 QRS: 42 QRSD: 90 T: 57 QT: 467 QTc: 454 Interpretive Statements SINUS BRADYCARDIA Compared to ECG 07/31/2020 17:24:30 Sinus rhythm no longer present Electronically Signed On 07-31-2020 23:12:56 CDT by Starr Swanson M.D. [email or web address]/store/[id number]
[2020-08-01] VITALS (10 sets, daily range): BP systolic 116–135; BP diastolic 64–79; PULSE 53–71; RESP 16–23; TEMP 36.6–36.7; O2SAT 87–98
[2020-08-01] MEDS: cefTRIAXone 1,000 MG in sodium chloride 0.9% (plus) 50 ML 100 MG IV (04:59)
[2020-08-01 05:02] LABS: Basophils % 0.3 %; Eosinophils # 0.2 10^3/uL (0.0-0.8); Eosinophils % 2.2 %; Hematocrit 32.6 % (42.0-52.0); Hemoglobin 10.6 g/dL (11.7-16.6); Lymphocytes # 1.4 10^3/uL (0.8-4.8); Lymphocytes % 19.4 %; Mean Corpuscular HGB Conc 32.5 g/dL (30.0-36.0); Mean Corpuscular Hemoglobin 31.5 pg (28.0-34.0); Mean Corpuscular Volume 96.7 fL (80-94); Mean Platelet Volume 12.4 fL (7.4-10.4); Monocytes # 1.3 10^3/uL (0.2-0.9); Monocytes % 17.8 %; Neutrophils # 4.38 10^3/uL (1.8-7.7); Neutrophils % 59.9 %; Nucleated Red Blood Cells % 0 %; Platelet Count 139 10^3/cmm (130-400); Red Blood Count 3.37 10^6/uL (4.1-5.3); White Blood Count 7.3 10^3/uL (4.0-10.0)
[2020-08-01 05:14] LABS: Blood Urea Nitrogen 11 mg/dL (8-23); Calcium 7.8 mg/dL (8.5-10.5); Carbon Dioxide 24 mmol/L (22-29); Chloride 108 mmol/L (98-107); Glucose 87 mg/dL (65-115); Osmolality Calculated 285 mOsm/kg (285-295); Sodium 138 mmol/L (136-145)
[2020-08-01 05:33] LABS: Slide Review Slide Review Perform
[2020-08-01] MEDS: aspirin 81 mg EC Tablet PO (05:50)
--- NOTE | 2020-08-01 07:26 | PC.NURSE ---
patient out of room at this time for stress test patient assisted to wheel chair by staff and accompanied to testing area patient alert and oriented and in stable condition upon departure from unit
[2020-08-01] MEDS: regadenoson 0.4 Mg/5 ml Syringe IVP (08:00)
--- NOTE | 2020-08-01 08:00 | ECG_ITS ---
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 Interpretive Statements NAME OF STUDY: LEXISCAN SESTAMIBI STRESS TEST INDICATION: [trop elevation/cad, ] Procedure: At the baseline, the blood pressure was 115/59 mmHg with a heart rate of 57 bpm. The electrocardiogram showed normal sinus rhythm, normal axis with normal ST and T's. The Lexiscan was infused over a period of 20 seconds. A total of 0.4 mg of Lexiscan was infused. The stress phase was continued for a total of 5 minutes. Heart rate was at the end of stress phase was 73 bpm and a blood pressure of 118/49 mmHg. The EKG at the peak infusion revealed since normal sinus rhythm with no significant ST-T wave changes. Sestamibi was injected 20 seconds after the Lexiscan infusion. Blood pressure at the end of recovery phase was 116/64mmHg with a heart rate of 68 bpm. Conclusion: 1. Normal EKG response to Lexiscan infusion 2. No Lexiscan induced chest pain or cardiac arrhythmia. 3. Normal blood pressure and heart rate response. 4. Sestamibi/sestamibi perfusion scan pending; see separate report. Electronically Signed On 08-15-2020 17:03:46 CDT by Papi Blanca M.D. [email or web address].[email or web address]/store/[id number]
[2020-08-01] MEDS: enoxaparin 100 mg/mL Syringe SUBCUT (10:08)
[2020-08-01] MEDS: tamsulosin 0.4 mg Capsule PO ×2 (10:08→17:38)
--- NOTE | 2020-08-01 10:09 | USCV_ITS ---
Reid Nieves Age: 74 Gender: M : 1945 Exam Date: 08/01/2020 15:33 Ordering Phys: Paolo Stevenson MD Technologist: GOYO Exam Location: [facility] [place] Indication: Bioprosthetic mitral valve BP: 125 / 79 HR: 68 Rhythm: Sinus Technical Quality: Adequate MEASUREMENTS (Male / Female) Normal Values 2D ECHO LV Diastolic Diameter PLAX 4.2 cm 4.2 - 5.9 / 3.9 - 5.3 cm LV Systolic Diameter PLAX 3.1 cm LV Chamber Size 3.3 cm IVS Diastolic Thickness 1.4 cm 0.6 - 1.0 / 0.6 - 0.9 cm IVS Systolic Thickness 1.9 cm LVPW Diastolic Thickness 2.0 cm 0.6 - 1.0 / 0.6 - 0.9 cm LVPW Systolic Thickness 2.8 cm RV Chamber Size 4.0 cm LVOT Diameter 2.1 cm LV Ejection Fraction 2D Teich 50.6 % LV Ejection Fraction MOD 2C 56.1 % LV Ejection Fraction 2C AL 54.3 % LA Diameter 4.6 cm LA Width 4.6 cm LA Height 5.6 cm RA Width 4.1 cm RA Height 4.3 cm Aorta at Sinotubular Diameter 3.1 cm M-MODE LV Diastolic Diameter MM 5.9 cm 4.2 - 5.9 / 3.9 - 5.3 cm LV Systolic Diameter MM 4.8 cm LV Ejection Fraction MM Teich 38.3 % IVS Diastolic Thickness MM 1.4 cm 0.6 - 1.0 / 0.6 - 0.9 cm IVS Systolic Thickness MM 1.3 cm LVPW Diastolic Thickness MM 1.7 cm 0.6 - 1.0 / 0.6 - 0.9 cm LVPW Systolic Thickness MM 1.8 cm Aortic Annulus Diameter 4.1 cm LA Ao Ratio MM 1.0 MV E Point Septal Separation 2.4 cm FINDINGS Left Ventricle Normal left ventricular cavity size. Normal left ventricular wall thickness. Normal left ventricular systolic function. Left ventricular ejection fraction is estimated at 65 %. No regional wall motion abnormalities. Abnormal septal motion consistent with conduction abnormality. Right Ventricle Normal right ventricular size and systolic function. Right Atrium Normal right atrial size. Left Atrium Moderately increased left atrial size. Mitral Valve Bioprosthetic mitral valve in situ. Aortic Valve Aortic valve not well visualized. Tricuspid Valve Structurally normal tricuspid valve. Pulmonic Valve Pulmonic valve not well visualized. Pericardium No pericardial effusion. Aorta Normal size aortic root and proximal ascending aorta. Normal- sized inferior vena cava with normal respiratory variation. CONCLUSIONS 1. This is a limited 2D echocardiogram. 2. Normal left ventricular cavity size, wall thickness and systolic function. Left ventricular ejection fraction is estimated at 65%. No regional wall motion abnormalities. Abnormal septal motion consistent with conduction abnormality. 3. Normal right ventricular size and systolic function. 4. Bioprosthetic mitral valve in situ. Complete color Doppler evaluation of valve was not done. Starr Swanson MD (Electronically Signed) Final Date: 02 Aug 2020 14:54 S
[2020-08-01] MEDS: metoprolol tartrate 25 mg Tablet 12.5 MG PO ×2 (10:11→17:38)
--- NOTE | 2020-08-01 10:19 | US_ITS ---
WS: [id number] RENAL ULTRASOUND HISTORY: UTI, fever, assess for hydronephrosis COMPARISON: None available. TECHNIQUE: 2-D and color Doppler imaging of the kidney submitted. Right kidney: 11.4 cm x 4.8 cm x 4.8 cm. Poorly visualized kidney. Grossly no hydronephrosis. Mild cortical thinning and increased echogenicit y. Left kidney: 10.4 cm x 4.9 cm x 6.3 cm. Poorly visualized kidney. No hydronephrosis. Mild increased echogenicity. No significant cortical thi nning. Aorta: Not visualized. Urinary Bladder: Gongora catheter, nondistended bladder. US/US renal BI* [id number] IMPRESSION: 1. No hydronephrosis. 2. Mild chronic medical renal disease.
--- NOTE | 2020-08-01 11:06 | NMCV_ITS ---
NM rickey perf SPECT r/s* [id number] Reid Nieves Age: 74 Gender: M : 1945 Exam Date: 08/01/2020 07:03 Ordering Phys: Paolo Stevenson MD Technologist: EBONI Lay Exam Location: [facility] Indications: SOB STRESS TEST Please [facility] IMAGE PROTOCOL Rest/Stress 1 Lexiscan Day Radiopharmaceutical Dose (mCi) Administration Site Administered by Rest: Tc-99m 10.[address] Sestamibi Stress:Tc-99m 32.[address] Sestamibi Rest: 01-Aug-2020 60 Discovery 630 Stress: 01-Aug-2020 30 Discovery 630 0.4mg Lexiscan. Images obtained in supine and prone position. SPECT RESULTS Technical Quality: Excellent Raw Data Analysis: Normal Image Corrections: No attenuation or motion correction applied Summed Stress Score: 9 Summed Rest Score: 8 Summed Difference Score: 1 PERFUSION FINDINGS There is a large in size, mostly fixed perfusion defect in the inferior, inferior apical and apical huitron. 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 IMPRESSIONS 1. Abnormal myocardial perfusion imaging with mostly fixed, large sized perfusion defect in inferior, inferior apical and apical huitron. This likely represents prior infarct with small area of niko-infarct ischemia. 2. LV systolic function is normal Papi Blanca MD (Electronically Signed) Final Date: 01 Aug 2020 10:58 S
--- NOTE | 2020-08-01 15:02 | PM.DCS ---
Discharge Providers Date of Admission: 07/30/20 05:15 Date of Discharge: August 01, 2020 Attending Provider at Admission: Patrick Martinez Attending Provider at Discharge: Paolo Stevenson Primary Care Provider: Markel Valero MD Diagnoses at Discharge Discharge Diagnosis (1) Sepsis: Status: Acute (2) Acute UTI: Status: Acute (3) NSTEMI (non-ST elevated myocardial infarction): Status: Acute (4) Status post mitral valve replacement with tissue valve: Status: Acute (5) Pulmonary HTN: Status: Acute (6) DENAE on CPAP: Status: Acute (7) Diastolic dysfunction: Status: Acute (8) BPH loc w urin obs/LUTS: Status: Acute Reason for Visit Reason for Visit: sob Hospital Course Hospital Course Very pleasant 74-year-old gentleman with chronic urinary obstruction, BPH, self-catheterization 4 times daily, following with urology, also with sleep apnea, pulmonary arterial hypertension, came in due to fever, tachycardia, with noted urinary tract infection, noted mild confusion, lethargy on presentation. She was treated for sepsis due to urinary tract infection. CT abdomen pelvis did not show hydronephrosis up to mid ureters. Gongora catheter was placed due to chronic urinary outflow obstruction and inability to perform self-catheterization. His mental status improved, fevers resolved with antibiotic treatment with Rocephin in the hospital. Urine culture eventually growing Klebsiella. Urine catheter will be removed on discharge, he will resume self-catheterization. He will complete antibiotic course with cefdinir. He is asked to resume follow-up with urology. Of note on presentation he was also noted to have elevation of troponin up to as high as 230. With possible NSTEMI he was treated with aspirin, beta-wiley, continue on statin, anticoagulation with Lovenox. He had had no chest pain, apart from brief moment of discomfort. EKG did not show findings to confirm acute NC. One of the EKGs showed atrial fibrillation. This was discussed with him, as well as the risk of stroke. Due to recent significant hematuria initiation of anticoagulation for now which creates too high of risk for bleeding. He is asked to revisit again regarding atrial fibrillation and stroke reduction with his primary provider and photoengraving etcher apprentice in office with consideration of anticoagulation once bleeding concern resolves. At this time he continues on aspirin 81 mg. Stress test obtained today showed mostly fixed defect with large area and inferior, inferior apical and apical huitron likely due to prior infarct with small area of niko-infarct ischemia. This was discussed with his photoengraving etcher apprentice. As he remained chest pain-free, at this time we will continue on cardiac medications and follow-up in office. He has been experiencing some dyspnea on exertion recently. Home oxygen evaluation is requested discharge. This is suspected secondary to diastolic dysfunction, as well as mild to moderate mitral valve stenosis with history of bioprosthetic mitral valve replacement. Due to dyspnea exertion limited TTE is obtained prior to discharge for additional reevaluation of the valve. He was also started on iron supplementation for LEO. Please consider additional evaluation for possible GI blood loss once he recovers from acute illness. Physical Exam Const: COMMON NORMALS: no acute distress and patient oriented x3 HENMT: COMMON NORMALS: oropharynx normal Neck/C-Spine: COMMON NORMALS: no JVD Resp: COMMON NORMALS: normal respiratory effort and clear to auscultation bilaterally AUSCULTATION: clear to auscultation bilaterally Cardio: COMMON NORMALS: no JVD, regular rhythm, S1 normal heart sound present, S2 normal heart sound present and No murmurs present (Cardio) RHYTHM: regular rhythm HEART SOUNDS: S1 normal heart sound present and S2 normal heart sound present GI: COMMON NORMALS: Normal to inspection, nondistended, normoactive bowel sounds present, Soft to palpation and non-tender PALPATION: Yes Soft to palpation Extremity: COMMON NORMALS: no joint enlargement and no pedal edema Neuro: COMMON NORMALS: patient oriented x3 and moves all extremities Skin: COMMON NORMALS: no rashes or lesions noted GENERAL SKIN EXAM: no rashes or lesions noted Urinary Catheter Management^: Gongora: Cath Placed During This Visit: yes Reason for Continuing Indwelling Catheter: Accurate Measurement of Urinary Output in Critically Ill Patients Urinary Catheter Date of Insertion: 07/30/20 Discharge Data Data Completed and Pending: Completed Studies During Hospitalization Category Date Time Status CT abdomen wo con 50000 Routine Cat Scan 07/30/20 10:02 Completed Sestamibi Stress Test Request Sapna ne Exams 08/01/20 08:00 Draft XR chest 1V denisse ble 23280 Urgent Exams 07/30/20 04:19 Completed NM rickey perf SPECT r/s* [id number] Routin e Nuc Med 08/01/20 11:06 Completed Pending at discharge Category Date Time Status Bacterial Antigen Stat Lab 07/30/20 10:02 Ordered Basic Metabolic P isela AM LABS Lab 08/02/20 04:00 Ordered Basic Metabolic P isela AM LABS Lab 08/03/20 04:00 Ordered Blood Culture Rou fred Lab 08/01/20 12:19 Results Complete Blood Co unt w/Auto AM LABS Lab 08/02/20 04:00 Ordered Complete Blood Co unt w/Auto AM LABS Lab 08/03/20 04:00 Ordered US echo limited [ CV echo limited 93 308] Routine Ultrasound 08/01/20 10:09 Ordered US renal BI* [id number] Routine Ultrasound 08/01/20 10:19 Ordered Labs from last 24 hours 08/01/20 08/01/20 07/31/20 04:27 04:27 15:15 WBC 7.3 RBC 3.37 L Hgb 10.6 L Hct 32.6 L MCV 96.7 H MCH 31.5 MCHC 32.5 RDW 13.0 Plt Count 139 MPV 12.4 H Neut % (Auto) 59.9 Lymph % (Auto) 19.4 [place] % (Auto) 17.8 Eos % (Auto) 2.2 Baso % (Auto) 0.3 Neut # (Auto) 4.38 Lymph # (Auto) 1.4 [place] # (Auto) 1.3 H Eos # (Auto) 0.2 Baso # (Auto) 0.0 Nucleated RBC % (a uto) 0 Nucleated RBCs # 0.0 Sodium 138 Potassium 4.0 Chloride 108 H Carbon Dioxide 24 Anion Gap 10.0 BUN 11 Creatinine 0.9 GFR Calculation Not Reportable Glucose 87 Calculated Osmolal ity 285 Calcium 7.8 L Troponin T Baselin e 138 H* Vitals: Last Vital Signs Temp 980 F H 08/01/20 14:59 Pulse 71 08/01/20 14:59 Resp 16 08/01/20 14:59 BP 125/79 08/01/20 14:59 Pulse Ox 98 08/01/20 14:59 Discharge Plan Discharge Patient Disposition: Home Condition: Stable Prescriptions: New cefdinir 300 mg capsule 300 mg PO BID 5 Days Qty: 10 RF: 0 Continued albuterol sulfate [ProAir HFA] 90 mcg/actuation HFA aerosol inhaler 2 puff INHALATION Q6H PRN (Reason: Shortness Of Breath) RF: 0 tramadol 50 mg tablet 50 mg PO PRN RF: 0 aspirin 81 mg tablet,delayed release (DR/EC) 81 mg PO DAILY RF: 0 simvastatin 20 mg tablet 20 mg PO QPM RF: 0 cyanocobalamin (vitamin B-12) 2 tab PO DAILY RF: 0 albuterol sulfate 2.5 mg /3 mL (0.083 %) solution for nebulization 2.5 mg inhalation TID PRN (Reason: Shortness Of Breath) RF: 0 Symbicort 160-4.5 mcg/actuation HFA aerosol inhaler 2 puff INHALATION BID 30 Days Qty: 10.2 RF: 3 Flomax 0.4 mg capsule 0.4 mg PO BID Qty: 180 RF: 3 sildenafil [Viagra] 25 mg Tablet 25 mg PO PRN RF: 0 trazodone 150 mg tablet 150 mg PO BEDTIME PRN (Reason: Sleep) RF: 0 magnesium-potassium 1 tab PO DAILY RF: 0 vitamin E 3 cap PO DAILY RF: 0 spironolactone 25 mg tablet 25 mg PO QPM RF: 0 montelukast 10 mg tablet 10 mg PO QPM RF: 0 furosemide [Lasix] 20 mg tablet 20 mg PO DAILY RF: 0 metoprolol tartrate 25 mg tablet 12.5 mg PO BID RF: 0 Discharge Orders: Discharge Order (Routine); Ordered 08/01/20 Ordered By: Paolo Stevenson Referrals: Lonnie Arrieta MD [Physician] - 2 weeks (UTI, hematuria) Papi Blanca M.D [Physician] - 1 week (AFib) Markel Valero MD [Primary Care Provider] - 4-7 days Discharge Diet: Cardiac Discharge Activity: Increase activity as tolerated and Cpap/Bipap as instructed Patient Instructions: Myocardial Infarction (GEN), Urinary Tract Infection in Men (GEN), Sepsis (GEN) Activity Restrictions/Additional Instructions: Please continue intermittent self-catheterization as as instructed by urology. Please follow-up with your photoengraving etcher apprentice in office. Please discuss with your primary care doctor as well as with your photoengraving etcher apprentice with regards to atrial fibrillation. Please note that this increases your risk of stroke. Please discuss with them consideration of initiating blood thinner medication. For now this is not started due to the recent bleeding you have had. Discharge Attestations Time Spent in Discharge Care*: greater than 30 min Quality Metrics Clinical Quality Measures During this hospital stay, did patient experience: None Coding Level of Care Code Acute Chg FW DC note Exam Comprehensive Diagnoses Sepsis A41.9 Acute UTI N39.0 NSTEMI (non-ST elevated myocardial infarction) I21.4 Status post mitral valve replacement with tissue valve Z95.3 Pulmonary HTN I27.20 DENAE on CPAP G47.33; Z99.89 Diastolic dysfunction I51.89 BPH loc w urin obs/LUTS N40.1
[2020-08-01] MEDS: iron sucrose 200 MG in sodium chloride 0.9% (100 ml) 100 ML 220 MG IV (16:27)
[2020-08-01] MEDS: atorvastatin 40 mg Tablet 80 MG PO (17:38)
--- NOTE | 2020-08-01 19:49 | PC.NURSE ---
D/C instructions provided to pt and . No questions or concerns. Gongora removed and orders to continue to straight cath at home were provided. Patient oxygen has been delivered and patient is going home with spouse. VS stable upon departure.
== END 2020-08-01 19:50 | disposition home or self-care (01) | DRG 871 ==
LOC: ER 05:04 → MEDSURG 05:23 → CSU 14:55
PROVIDERS: Student in an Organized Health Care Education/Training Program; Admitting Provider Internal Medicine; Emergency Provider Emergency Medicine; PCP Family Medicine; Visit Provider Internal Medicine
DX: A41.9 Sepsis, unspecified organism (principal); G93.41 Metabolic encephalopathy; I21.A1 Myocardial infarction type 2; N39.0 Urinary tract infection, site not specified; N13.8 Other obstructive and reflux uropathy; I50.30 Unspecified diastolic (congestive) heart failure; I27.20 Pulmonary hypertension, unspecified; N40.1 Benign prostatic hyperplasia with lower urinary tract symptoms; R33.8 Other retention of urine; G47.33 Obstructive sleep apnea (adult) (pediatric); I73.9 Peripheral vascular disease, unspecified; Z95.3 Presence of xenogenic heart valve; I11.0 Hypertensive heart disease with heart failure; D50.9 Iron deficiency anemia, unspecified; B96.1 Klebsiella pneumoniae [K. pneumoniae] as the cause of diseases classified elsewhere; I05.0 Rheumatic mitral stenosis; Z79.82 Long term (current) use of aspirin
CPT/HCPCS: 36415; 36600; 51702; 71045; 74150; 76770; 78452; 80048; 80053; 81001; 82803; 83036; 83540; 83550; 83605; 83735; 83880; 84145; 84443; 84484; 85025; 87040; 87077; 87086; 87186; 87641; 93005; 93017; 93308; 94640; 94660; 94664; 94760; 96361; 96365; 96372; 96375; 96376; 99284; 99285; A9500; J0696; J1650; J1756; J2405; J2785; J7030; J7611

== ENCOUNTER 2020-08-08 16:05 | Inpatient (IN) | payer MEDICARE, OTHER, SELFPAY ==
[2020-08-08] VITALS (16 sets, daily range): BP systolic 98–136; BP diastolic 46–80; PULSE 51–78; RESP 12–22; TEMP 36.6–36.8; O2SAT 98–100; BMI 32.5
--- NOTE | 2020-08-08 16:17 | ECG_ITS ---
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 Measurements Intervals [place] Rate: 61 P: 52 TN: 186 QRS: 43 QRSD: 93 T: 54 QT: 462 QTc: 467 Interpretive Statements SINUS RHYTHM PROLONGED QT INTERVAL Compared to ECG 08/08/2020 18:32:41 Sinus bradycardia no longer present Electronically Signed On 08-09-2020 18:43:58 CDT by Papi Blanca M.D. [id number]
--- NOTE | 2020-08-08 16:17 | XRR_ITS ---
PROCEDURE INFORMATION: Exam: XR Chest Exam date and time: 08/08/2020 4:18 PM Age: 74 years old Clinical indication: Pain; Chest pressure; Additional info: Chest pain TECHNIQUE: Imaging protocol: XR of the chest. Views: 1 view. COMPARISON: CR (CHEST, ) 07/30/2020 4:38 AM FINDINGS: Lungs: Mild atelectasis in the left base. The lungs are otherwise clear. Pleural spaces: Unremarkable. No pleural effusion. No pneumothorax. Heart/Mediastinum: Unremarkable. No cardiomegaly. Diaphragm: Elevation of the left diaphragm. Bones/joints: Sternotomy wires. XR/XR chest 1V portable [id number] IMPRESSION: 1. Left base atelectasis.
[2020-08-08] MEDS: nitroglycerin 1 gm/inch oint Pkt 0.5 INCH TOPICAL (17:00)
--- NOTE | 2020-08-08 17:00 | W.ED.CHESTPA ---
HPI - Chest Pain General: Chief Complaint: Chest Pain Stated Complaint: CHEST PAINS Time Seen by Provider: 08/08/20 16:17 History of Present Illness: HPI narrative: 74-year-old male presents emergency room complaining of chest pain he has had coronary disease in the past previously had a bypass he began getting chest pain today radiating to the left side of his neck, shoulder, bilaterally in the arms. He went over to Dr. Mata's office he states he felt like he ran a marathon Dr. aMta seen him initial EKG is unremarkable however given his history and the symptoms Dr. Mata sent to the emergency room to be initially evaluated and to be admitted for anticipated cardiac catheterization. Patient has a history of COPD and is on oxygen started 3 weeks ago. He has not been more short of breath he did get diaphoretic with this episode of chest pain. He has no chest discomfort now. Patient recently was hospitalized on 526 he had a stress test that showed a fixed defect. There was some niko-infarct ischemia they had been attempting to manage medically however he still having symptoms. MD complaint: chest pain and chest heaviness Pertinent past history: coronary artery disease Onset (ago): minute(s) Timing of current episode: episodic Prior episodes: Yes Onset: during rest Pain location: left chest Pain radiation: right arm, left arm and neck Severity: moderate Quality: heaviness Relieving factors: rest Exacerbating factors: nothing Associated symptoms: Deny abdominal pain, diaphoresis, dyspnea, fever(s), leg edema, nausea, palpitations, sense of impending doom, syncope or vomiting Treatment prior to arrival: none Review of Systems Const: Denies: fever(s) or diaphoresis ENMT: Denies: throat pain, ear or mastoid pain, nasal discharge or nasal congestion Card: Denies: palpitations or syncope Resp: Denies: dyspnea GI: Denies: abdominal pain, nausea or vomiting : Denies: flank pain, dysuria, urinary frequency or urinary urgency Skin/Breast: Denies: rash or pruritus [facility] ED PFSH: Medical History (Updated 08/09/20 @ 05:55 by Cj Scott DO) Bilateral primary osteoarthritis of knee BPH loc w urin obs/LUTS Diastolic dysfunction Hordeolum externum (stye) NSTEMI (non-ST elevated myocardial infarction) Obstructive sleep apnea Onychomycosis of great toe DENAE on CPAP PAD (peripheral artery disease) Pulmonary HTN Syncope Surgical History H/O mitral valve replacement with tissue graft History of repair of hiatal hernia Status post mitral valve replacement with tissue valve Family History Mother Stroke Grandfather CAD (coronary artery disease) Father Tuberculosis Social History Smoking and tobacco status: former smoker Alcohol intake: former Year of sobriety/quit date alcohol: 1985 Marital status: service: Yes branch: [employer] Current occupational status: retired History of recent travel: No Physical Exam Const: COMMON NORMALS: no acute distress GENERAL APPEARANCE: cooperative and comfortable ORIENTATION/CONSCIOUSNESS: Yes awake, Yes oriented to person, Yes oriented to place and Yes oriented to time Neck/C-Spine: COMMON NORMALS: no JVD Lymph: LYMPHATIC: no lymphadenopathy noted and no lymphedema noted Resp: COMMON NORMALS: normal respiratory effort, No retractions and No use of accessory muscles AUSCULTATION: rales (At the bases) bilateral and wheezes expiratory wheezes and throughout Cardio: COMMON NORMALS: no JVD, regular rate, regular rhythm and No murmurs present (Cardio) RATE: regular rate RHYTHM: regular rhythm GI: COMMON NORMALS: Soft to palpation and No hepatosplenomegaly present AUSCULTATION: Yes normoactive bowel sounds PALPATION: Yes Soft to palpation, No Tenderness to palpation present (GI), No Guarding due to palpation present (GI) and Yes No hepatosplenomegaly present Extremity: COMMON NORMALS: normal to inspection, capillary refill normal and no calf tenderness GENERAL: Yes edema (Mild bilateral lower extremity) Neuro: SENSORIUM/ORIENTATION: Yes oriented to person, Yes oriented to place and Yes oriented to time Skin: COMMON NORMALS: no rashes or lesions noted GENERAL SKIN EXAM: no rashes or lesions noted Course Vital Signs: Vital signs: Vital Signs Temperature 98.2 F 08/09/20 04:00 Pulse Rate 46 L 08/09/20 04:00 Respiratory Rate 18 08/09/20 04:00 Blood Pressure 110/58 08/09/20 04:00 Pulse Oximetry 97 08/09/20 04:00 MDM - Chest Pain MDM Narrative: Medical decision making narrative: Dr. Mata had called ahead of time regarding this patient he had asked that this patient be admitted to the hospitalist due to multiple medical conditions. He had already seen the patient in the office EKG there was normal but his presenting complaint was concerning for angina. Patient had a sestamibi stress test on 08/01/2020 there is areas of niko-infarct ischemia at that time he was initially decided to manage medically but now seems to be worsening. He plans to take patient to Social Media Coordinator tomorrow. Discussed Dr. Dominguez orders written for admission. Patient is pain-free at this time. Lab Data: Attestation: I reviewed the patient's lab results. Labs: Lab Results 08/08/20 08/08/20 08/08/20 Range/Units 17:05 17:05 17:05 WBC 6.7 (4.0-10.0) 10^3/ uL RBC 4.23 (4.1-5.3) 10^6/u L Hgb 13.1 (11.7-16.6) g/dL Hct 39.6 L (42.0-52.0) % MCV 93.6 (80-94) fL MCH 31.0 (28.0-34.0) pg MCHC 33.1 (30.0-36.0) g/dL RDW 13.1 (12.1-15.1) % Plt Count 269 (130-400) 10^3/c mm MPV 11.6 H (7.4-10.4) fL Neut % (Auto) 59.0 % Lymph % (Auto) 28.7 % [place] % (Auto) 9.7 % Eos % (Auto) 1.9 % Baso % (Auto) 0.3 % Neut # (Auto) 3.96 (1.8-7.7) 10^3/u L Lymph # (Auto) 1.9 (0.8-4.8) 10^3/u L [place] # (Auto) 0.7 (0.2-0.9) 10^3/u L Eos # (Auto) 0.1 (0.0-0.8) 10^3/u L Baso # (Auto) 0.0 (0.0-0.1) 10^3/u L Nucleated RBC % (a uto) 0 % Nucleated RBCs # 0.0 /100WBC PT 12.90 (12.1-14.9) SECO NDS INR 0.95 (0.8-1.2) APTT 28.7 (23.9-36.7) SECO NDS Sodium 138 (136-145) mmol/L Potassium 4.3 (3.5-5.1) mmol/L Chloride 105 (98-107) mmol/L Carbon Dioxide 21 L (22-29) mmol/L Anion Gap 16.3 (5-19) BUN 13 (8-23) mg/dL Creatinine 1.3 H (0.7-1.2) mg/dL GFR Calculation Not Reportable Glucose 86 (65-115) mg/dL Calculated Osmolal ity 285 (285-295) mOsm/k g Calcium 8.7 (8.5-10.5) mg/dL Magnesium (1.7-2.3) mg/dL Total Bilirubin 0.5 (0.15-1.2) mg/dL AST 27 (0-40) U/L ALT 33 (0-41) U/L Alkaline Phosphata se 90 (40-130) IU/L Troponin T Baselin e (0-15) ng/L Total Protein 7.4 (6.6-8.7) g/dL Albumin 4.1 (3.5-5.2) g/dL Globulin 3.3 (1.3-4.6) g/dL 08/08/20 08/08/20 Range/Units 17:05 17:05 WBC (4.0-10.0) 10^3/ uL RBC (4.1-5.3) 10^6/u L Hgb (11.7-16.6) g/dL Hct (42.0-52.0) % MCV (80-94) fL MCH (28.0-34.0) pg MCHC (30.0-36.0) g/dL RDW (12.1-15.1) % Plt Count (130-400) 10^3/c mm MPV (7.4-10.4) fL Neut % (Auto) % Lymph % (Auto) % [place] % (Auto) % Eos % (Auto) % Baso % (Auto) % Neut # (Auto) (1.8-7.7) 10^3/u L Lymph # (Auto) (0.8-4.8) 10^3/u L [place] # (Auto) (0.2-0.9) 10^3/u L Eos # (Auto) (0.0-0.8) 10^3/u L Baso # (Auto) (0.0-0.1) 10^3/u L Nucleated RBC % (a uto) % Nucleated RBCs # /100WBC PT (12.1-14.9) SECO NDS INR (0.8-1.2) APTT (23.9-36.7) SECO NDS Sodium (136-145) mmol/L Potassium (3.5-5.1) mmol/L Chloride (98-107) mmol/L Carbon Dioxide (22-29) mmol/L Anion Gap (5-19) BUN (8-23) mg/dL Creatinine (0.7-1.2) mg/dL GFR Calculation Glucose (65-115) mg/dL Calculated Osmolal ity (285-295) mOsm/k g Calcium (8.5-10.5) mg/dL Magnesium 2.3 (1.7-2.3) mg/dL Total Bilirubin (0.15-1.2) mg/dL AST (0-40) U/L ALT (0-41) U/L Alkaline Phosphata se (40-130) IU/L Troponin T Baselin e 26 H (0-15) ng/L Total Protein (6.6-8.7) g/dL Albumin (3.5-5.2) g/dL Globulin (1.3-4.6) g/dL Discharge Plan Discharge Patient Disposition: Admitted As Inpatient Admit Provider: Gerry Marcum Clinical Impression: Unstable angina, BPH loc w urin obs/LUTS, Acute UTI, SUNNY (acute kidney injury), PAD (peripheral artery disease), Pulmonary HTN Condition: Stable Coding Level of Care Code ED Secondary School Teacher for [facility] Fwd Exam Comprehensive
[2020-08-08 17:26] LABS: Basophils % 0.3 %; Eosinophils # 0.1 10^3/uL (0.0-0.8); Eosinophils % 1.9 %; Hematocrit 39.6 % (42.0-52.0); Hemoglobin 13.1 g/dL (11.7-16.6); Lymphocytes # 1.9 10^3/uL (0.8-4.8); Lymphocytes % 28.7 %; Mean Corpuscular HGB Conc 33.1 g/dL (30.0-36.0); Mean Corpuscular Volume 93.6 fL (80-94); Mean Platelet Volume 11.6 fL (7.4-10.4); Monocytes # 0.7 10^3/uL (0.2-0.9); Monocytes % 9.7 %; Neutrophils # 3.96 10^3/uL (1.8-7.7); Nucleated Red Blood Cells % 0 %; Platelet Count 269 10^3/cmm (130-400); Red Blood Count 4.23 10^6/uL (4.1-5.3); Red Cell Distribution Width 13.1 % (12.1-15.1); White Blood Count 6.7 10^3/uL (4.0-10.0)
[2020-08-08 17:47] LABS: INR 0.95 (0.8-1.2); Partial Thromboplastin Time 28.7 SECONDS (23.9-36.7)
[2020-08-08 17:55] LABS: Troponin(5th) Baseline 26 ng/L (0-15)
[2020-08-08 17:57] LABS: Alanine Aminotransferase 33 U/L (0-41); Albumin Level 4.1 g/dL (3.5-5.2); Alkaline Phosphatase 90 IU/L (40-130); Anion Gap 16.3 (5-19); Aspartate Amino Transferase 27 U/L (0-40); Blood Urea Nitrogen 13 mg/dL (8-23); Calcium 8.7 mg/dL (8.5-10.5); Carbon Dioxide 21 mmol/L (22-29); Chloride 105 mmol/L (98-107); Globulin 3.3 g/dL (1.3-4.6); Glucose 86 mg/dL (65-115); Osmolality Calculated 285 mOsm/kg (285-295); Potassium 4.3 mmol/L (3.5-5.1); Sodium 138 mmol/L (136-145); Total Bilirubin 0.5 mg/dL (0.15-1.2); Total Protein 7.4 g/dL (6.6-8.7)
--- NOTE | 2020-08-08 18:17 | ECG_ITS ---
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 Measurements Intervals [place] Rate: 59 P: 64 CO: 195 QRS: 61 QRSD: 90 T: 66 QT: 478 QTc: 476 Interpretive Statements SINUS BRADYCARDIA PROLONGED QT INTERVAL Compared to ECG 08/08/2020 16:14:44 Prolonged QT interval now present Electronically Signed On 08-09-2020 19:00:42 CDT by Papi Blanca M.D. [id number]
--- NOTE | 2020-08-08 19:23 | P.HP_ITS ---
Providers/Chief Complaint Primary Care Provider: Markel Valero MD Chief Complaint: CHEST PAINS History of Present Illness Reid Nieves is a 74 year old male who has history of bioprosthetic mitral valve, previous coronary angiogram revealed normal coronary vessels, takes sildenafil for pulmonary hypertension, was sent in from cardiology clinic for unstable angina. Patient is stating that for last few months he has been experiencing chest discomfort intermittently without any aggravating factors, he would experience chest pain for about 1 to 2 minutes which he is describing as pressure-like sensation left-sided, today when he was feeling fuel tank epigastric marcano to come to his follow-up appointment at cardiology clinic he s tarted experiencing dizzy which he is describing as lightheaded, numbness and tingling in his fingers bilaterally, he felt nauseous. This time he was describing his chest pain as pressure-like sensation, left-sided which only lasted for about 2 to 3 minutes, he did not sprints any syncope, nausea, vomiting or diaphoresis. He explained his symptoms to Dr. Mata at the clinic and was sent to the ER to be admitted for an angiogram in the morning. Diagnostics in the ER revealed normal CBC, BMP troponin with negative delta EKG showing T wave inversion V1 V2 which are not new as compared to previous EKGs, subtle changes in inferior leads however no STEMI changes, at the time of my evaluation he had Nitropaste on and he was symptom free, heart rate 71 however EKGs captured sinus bradycardia with prolonged QTC potassium 4.3, will check magnesium level Of note, patient has been experiencing urinary retention secondary to BPH, he required placement of Gongora catheter for about 3 months in the past which was eventually removed and now he is requiring intermittent self-catheterization every 4 hours, patient is endorsing that he catheterizes himself after he voids, he is noticing that his residual urine volume is reducing in quantity, lately it has been less than an ounce which used to be about 4 ounces of urine volume after voiding. His creatinine is 1.3 today. Patient is also stating that his energy level and physical activity intensity has increased since he started using oxygen with his BiPAP at night. Review of Systems Const: Denies: fever(s) Eyes: Denies: change in vision ENMT: Denies: throat pain Card: Reports: chest pain, pre-syncope and dyspnea on exertion; Denies: orthopnea Resp: Reports: dyspnea GI: Denies: abdominal pain : Reports: urinary hesitancy and difficulty starting urination; Denies: flank pain Musc: Denies: neck pain Skin/Breast: Denies: rash Neuro: Denies: headache(s) Psych: Denies: anxiety Endo: Denies: polyuria Sukhdev/Lymph: Denies: easy bruising All/Imm: Denies: urticaria Medications/Allergies Home Medications Medication Instructions Recorded Confirmed Last Taken Type aspirin 81 mg tablet,delayed 81 mg PO DAILY@0700 03/21/19 08/08/20 08/08/20 History release simvastatin 20 mg tablet 20 mg PO DAILY@199903/21/19 08/08/20 08/07/20 History tramadol 50 mg tablet 50 mg PO PRN 03/21/19 08/08/20 08/07/20 History cyanocobalamin (vitamin B-12) 2 tab PO DAILY@0700 01/26/20 08/08/20 08/08/20 History albuterol sulfate 2.5 mg INHALATION TID PRN 06/18/20 08/08/20 08/08/20 History furosemide [Lasix] 20 mg PO DAILY@0700 07/05/20 08/08/20 08/08/20 History magnesium-potassium 1 tab PO DAILY@0700 07/05/20 08/08/20 08/08/20 History metoprolol tartrate 12.5 mg PO BID@0700 07/05/20 08/08/20 08/08/20 History montelukast 10 mg PO DAILY@199907/05/20 08/08/20 08/07/20 History sildenafil [Viagra] 25 mg PO PRN 07/05/20 08/08/20 Unknown History spironolactone 25 mg PO DAILY@199907/05/20 08/08/20 08/07/20 History trazodone 150 mg PO BEDTIME PRN 07/05/20 08/08/20 Unknown History vitamin E 3 cap PO DAILY@199907/05/20 08/08/20 08/07/20 History Flomax 0.4 mg PO BID@0700,199908/08/20 08/08/20 08/08/20 History Symbicort 2 puff INHALATION BID@0700,199908/08/20 08/08/20 08/07/20 History fluoxetine 20 mg PO DAILY@199908/08/20 08/08/20 08/07/20 History ondansetron HCl 4 mg PO Q4H PRN 08/08/20 08/08/20 Unknown History Allergies Allergy/AdvReac Type Severity Reaction Status Date / Time latex Allergy ALGY-Hives Verified 08/08/20 16:15 PFSH Acute PFSH: Medical History (Updated 08/08/20 @ 21:04 by Alyssa Lehman MD) Bilateral primary osteoarthritis of knee BPH loc w urin obs/LUTS Diastolic dysfunction Hordeolum externum (stye) NSTEMI (non-ST elevated myocardial infarction) Obstructive sleep apnea Onychomycosis of great toe DENAE on CPAP PAD (peripheral artery disease) Pulmonary HTN Syncope Surgical History H/O mitral valve replacement with tissue graft History of repair of hiatal hernia Status post mitral valve replacement with tissue valve Family History Mother Stroke Grandfather CAD (coronary artery disease) Father Tuberculosis Social History Smoking and tobacco status: former smoker Alcohol intake: former Year of sobriety/quit date alcohol: 1985 Marital status: service: Yes branch: [employer] Current occupational status: retired History of recent travel: No Vitals/I&O/Wt Last Vital Signs Temp 98.3 F 08/08/20 16:15 Pulse 58 L 08/08/20 19:00 Resp 21 H 08/08/20 19:00 BP 105/70 08/08/20 19:00 Pulse Ox 99 08/08/20 19:00 Weight last 48 hrs Weight 105.687 kg Physical Exam Narrative: EXAM NARRATIVE: Very pleasant cooperative elderly male He was laying comfortably in his bed in supine position without orthopnea PND Saturating well on 2 L nasal cannula No active chest pain, Nitropaste on his chest Surgical scar franklin noticed on anterior chest S1, S2, I was not able to appreciate any murmur no active signs of heart failure however mild pitting edema of lower extremity Abdomen soft nontender bowel sounds present Central obesity EOMI, PERRLA No neurological deficits Bilateral breath sounds no adventitious/audible wheezing or rhonchi Patient is hard of hearing, no active strokelike symptoms Very pleasant and cooperative during my evaluation Data : 08/08/20 17:05 08/08/20 17:05 A&P Assessment and plan (1) Unstable angina: Status: Acute (2) Dyspnea: Status: Suspected (3) PAD (peripheral artery disease): Status: Acute (4) H/O mitral valve replacement with tissue graft: Status: Acute (5) BPH loc w urin obs/LUTS: Status: Acute (6) SUNNY (acute kidney injury): Status: Acute Additional A&P Information Unstable angina Patient symptoms are angina equivalent Previous history of bioprosthetic mitral valve, normal coronary angiogram, Dr. Mata sent him from cardiology clinic for an angiogram in the morning, we will keep him n.p.o. Troponin with negative delta EKG showing no new changes however T wave changes noticed in inferior and septal leads, patient chest pain-free on nitro paste EKG revealed QTc interval prolongation, potassium 4.3 we will check magnesium level Sinus bradycardia noted on EKG however at the time of my evaluation heart rate was in 70s, he was perfusing well systolic blood pressure 136 mmHg, Will monitor with cardiac telemetry, I would not initiate ACS protocol for now In case of recurrence of symptoms will update Dr. Mata Please note previous coronary angiogram was normal however myocardial perfusion scan on 08/01 showed fixed large size perfusion defect in inferior apical huitron consistent with prior infarct SUNNY Baseline creatinine 0.9-1 Has history of urine retention secondary to BPH requiring Gongora catheter placement in the past, When entered the room patient had voided about 50 cc of urine, will do bladder scan every 4 hours, at home he does intermittent self-catheterization every 4 hours as well his residual volume has been decreasing lately, continue tamsulosin Hold lisinopril for now along Lasix and spironolactone Sleep apnea Patient uses 2 L of oxygen at night with AVAps Bilateral upper extremity numbness and tingling Might benefit from a cervical CT scan to rule out any radiculopathy however no active strokelike symptoms N.p.o. after midnight DVT prophylaxis Heparin Full code Attestations Medical Necessity Statement*: Anticipating stay in the hospital cross more than 2 midnights for symptoms consistent with angina equivalent, plan coronary angiogram in the morning Time Spent in Patient Care: 30mins Coding Level of Care Code Acute Claims Configuration Analyst for Chg Fwd Diagnoses Unstable angina I20.0 Dyspnea R06.00 PAD (peripheral artery disease) I73.9 H/O mitral valve replacement with tissue graft Z95.4 BPH loc w urin obs/LUTS N40.1 SUNNY (acute kidney injury) N17.9
[2020-08-08 19:31] LABS: Troponin 5 2HR 23.44 ng/L (0-15)
[2020-08-08 19:33] LABS: Troponin 5 2HR Delta -2.56 ABS# (0-10)
--- NOTE | 2020-08-08 22:15 | PM.CONSULT ---
Providers/Reason For Consult Consulting Physician/Specialty*: Papi Blanca MD/ Cardiology Reason for Consult*: Chest pain Requesting Physician: Dr Scott Attending Physician: Gerry Marcum MD Primary Care Provider: Markel Valero MD History of Present Illness History of Present Illness 74-year-old man with past medical history of mitral valve replacement, he had 2 open heart procedures. According to prior notes he currently has a bioprosthetic mitral valve. He does not have coronary artery disease. Patient was recently admitted to the hospital with urinary tract infection. At that time his troponins did trend up to 230. He was medically managed stress test showed mostly scar with some niko-infarct ischemia. However patient has been having chest pain symptoms. He says that the symptoms have started over the last couple of months and have been worsening. Today he is having ongoing chest pain. EKG performed in the office did not reveal ischemic changes. However given his worsening symptoms he was sent from the clinic to emergency room for admission and possible coronary angiogram tomorrow. He also had presyncope symptoms. He has dyspnea on exertion and is on home oxygen for COPD. Review of Systems Const: Denies: fever(s) Eyes: Denies: change in vision ENMT: Denies: throat pain Card: Reports: chest pain, pre-syncope and dyspnea on exertion; Denies: orthopnea Resp: Reports: dyspnea GI: Denies: abdominal pain : Reports: urinary hesitancy and difficulty starting urination; Denies: flank pain Musc: Denies: neck pain Skin/Breast: Denies: rash Neuro: Denies: headache(s) Psych: Denies: anxiety Endo: Denies: polyuria Sukhdev/Lymph: Denies: easy bruising All/Imm: Denies: urticaria Meds/Allergies Home Medications and Allergies Home Medications Medication Instructions Recorded Confirmed Last Taken Type aspirin 81 mg tablet,delayed 81 mg PO DAILY@0703/21/19 08/08/20 08/08/20 History release simvastatin 20 mg tablet 20 mg PO DAILY@199903/21/19 08/08/20 08/07/20 History tramadol 50 mg tablet 50 mg PO PRN 03/21/19 08/08/20 08/07/20 History cyanocobalamin (vitamin B-12) 2 tab PO DAILY@0701/26/20 08/08/2008/08/21 History albuterol sulfate 2.5 mg INHALATION TID PRN 06/18/20 08/08/20 08/08/20 History furosemide [Lasix] 20 mg PO DAILY@69907/05/20 08/08/20 08/08/20 History magnesium-potassium 1 tab PO DAILY@69907/05/20 08/08/20 08/08/20 History metoprolol tartrate 12.5 mg PO BID@69907/05/20 08/08/20 08/08/20 History montelukast 10 mg PO DAILY@199907/05/20 08/08/20 08/07/20 History sildenafil [Viagra] 25 mg PO PRN 07/05/20 08/08/20 Unknown History spironolactone 25 mg PO DAILY@199907/05/20 08/08/20 08/07/20 History trazodone 150 mg PO BEDTIME PRN 07/05/20 08/08/20 Unknown History vitamin E 3 cap PO DAILY@199907/05/20 08/08/20 08/07/20 History Flomax 0.4 mg PO BID@0700,199908/08/20 08/08/20 08/08/20 History Symbicort 2 puff INHALATION BID@0700,199908/08/20 08/08/20 08/07/20 History fluoxetine 20 mg PO DAILY@199908/08/20 08/08/20 08/07/20 History ondansetron HCl 4 mg PO Q4H PRN 08/08/20 08/08/20 Unknown History Allergies Allergy/AdvReac Type Severity Reaction Status Date / Time latex Allergy ALGY-Hives Verified 08/08/20 16:15 PFSH Acute PFSH: Medical History Bilateral primary osteoarthritis of knee BPH loc w urin obs/LUTS Diastolic dysfunction Hordeolum externum (stye) NSTEMI (non-ST elevated myocardial infarction) Obstructive sleep apnea Onychomycosis of great toe DENAE on CPAP PAD (peripheral artery disease) Pulmonary HTN Syncope Surgical History H/O mitral valve replacement with tissue graft History of repair of hiatal hernia Status post mitral valve replacement with tissue valve Family History Mother Stroke Grandfather CAD (coronary artery disease) Father Tuberculosis Social History Smoking and tobacco status: former smoker Alcohol intake: former Year of sobriety/quit date alcohol: 1985 Marital status: service: Yes branch: [employer] Current occupational status: retired History of recent travel: No Vitals/I&O/Wt Last Vital Signs Temp 98.3 F 08/08/20 16:15 Pulse 63 08/08/20 21:50 Resp 19 H 08/08/20 21:50 BP 132/80 08/08/20 21:50 Pulse Ox 99 08/08/20 21:50 Weight last 48 hrs Weight 233 lb Physical Exam Narrative: EXAM NARRATIVE: GENERAL: Patient is alert, awake and oriented x3. [] NECK: No jugular vein distension. [] HEENT: No cyanosis. No icterus. No pallor. [] HEART: Regular S1 and S2. No murmur, rub or gallop. [] LUNGS: Clear to auscultate bilaterally. [] ABDOMEN: Soft, nontender and nondistended. Positive bowel sounds. No guarding, rebound or tenderness. [] CENTRAL NERVOUS SYSTEM: Grossly nonfocal. [] EXTREMITIES: Lower extremities with 1+ edema bilaterally. Pulses palpable in the lower extremities, both dorsalis pedis and posterior tibial. [] A&P Assessment and plan (1) Unstable angina: Status: Acute (2) Shortness of breath: Status: Acute (3) H/O mitral valve replacement with tissue graft: Status: Acute (4) PAD (peripheral artery disease): Status: Acute Patient had a recent admission with troponin elevation when he had UTI. He has been having chest pain symptoms. His stress test was abnormal however it showed mostly fixed defect with some niko-infarct ischemia. We will plan on performing coronary angiogram in the morning. Keep patient n.p.o. Continue current medications including aspirin and statin therapy. Thank you for involving us with the care of this patient. We will continue to follow. Please call with questions. 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
--- NOTE | 2020-08-08 22:17 | ECG_ITS ---
[facility] Test Date: 2020-08-08 Pat Name: Reid Nieves Department: Room: Gender: Male Information Coder: : 1945 Requested By: Cj Carver Order Number: [id number] Aba MD: Papi Blanca M.D. Measurements Intervals [place] Rate: 59 P: 70 AL: 147 QRS: 59 QRSD: 93 T: 65 QT: 457 QTc: 456 Interpretive Statements SINUS BRADYCARDIA Compared to ECG 07/31/2020 19:28:58 No significant changes Electronically Signed On 08-09-2020 19:00:48 CDT by Papi Blanca M.D. [id number]
[2020-08-08 22:20] LABS: Glucose Point of Care 91 mg/dL (70-110)
[2020-08-08] MEDS: sodium chloride 0.9% 1,000 ML 75 ML IV (23:00)
[2020-08-08] MEDS: tamsulosin 0.4 mg Capsule PO (23:00)
[2020-08-08] MEDS: heparin 5,000 unit/mL INJ 1 mL 5000 UNIT SUBCUT (23:01)
[2020-08-08 23:02] LABS: Magnesium 2.3 mg/dL (1.7-2.3)
[2020-08-09] VITALS (9 sets, daily range): BP systolic 97–121; BP diastolic 55–74; PULSE 44–57; RESP 14–23; TEMP 36.8–36.9; O2SAT 91–98
[2020-08-09 05:07] LABS: Basophils % 0.3 %; Eosinophils # 0.1 10^3/uL (0.0-0.8); Eosinophils % 1.9 %; Hematocrit 34.5 % (42.0-52.0); Hemoglobin 10.9 g/dL (11.7-16.6); Lymphocytes # 1.7 10^3/uL (0.8-4.8); Mean Corpuscular HGB Conc 31.6 g/dL (30.0-36.0); Mean Corpuscular Hemoglobin 30.4 pg (28.0-34.0); Mean Corpuscular Volume 96.1 fL (80-94); Mean Platelet Volume 11.5 fL (7.4-10.4); Monocytes # 0.7 10^3/uL (0.2-0.9); Monocytes % 11.6 %; Neutrophils # 3.22 10^3/uL (1.8-7.7); Neutrophils % 55.9 %; Nucleated Red Blood Cells % 0 %; Platelet Count 248 10^3/cmm (130-400); Red Blood Count 3.59 10^6/uL (4.1-5.3); Red Cell Distribution Width 13.2 % (12.1-15.1); White Blood Count 5.8 10^3/uL (4.0-10.0)
[2020-08-09 05:16] LABS: Alanine Aminotransferase 24 U/L (0-41); Albumin Level 3.3 g/dL (3.5-5.2); Alkaline Phosphatase 74 IU/L (40-130); Anion Gap 12.9 (5-19); Aspartate Amino Transferase 20 U/L (0-40); Blood Urea Nitrogen 13 mg/dL (8-23); Calcium 8.1 mg/dL (8.5-10.5); Carbon Dioxide 21 mmol/L (22-29); Chloride 110 mmol/L (98-107); Globulin 3.1 g/dL (1.3-4.6); Glucose 86 mg/dL (65-115); Osmolality Calculated 289 mOsm/kg (285-295); Potassium 3.9 mmol/L (3.5-5.1); Sodium 140 mmol/L (136-145); Total Bilirubin 0.7 mg/dL (0.15-1.2); Total Protein 6.4 g/dL (6.6-8.7)
[2020-08-09] MEDS: aspirin 81 mg EC Tablet PO (06:03)
[2020-08-09] MEDS: tamsulosin 0.4 mg Capsule PO (06:03)
[2020-08-09] MEDS: heparin 5,000 unit/mL INJ 1 mL 5000 UNIT SUBCUT ×2 (06:04→14:25)
--- NOTE | 2020-08-09 07:17 | XACV_ITS ---
Exam Room: [facility] Ht: 180 cm Wt: 103 kg BSA: 2.31 m2 Gender: Male : 1945 Any Known Allergies: Latex Exam Priority: Routine Procedure(s): Procedure Description: Diagnostic procedure Procedure Description: Left Heart Catheterization Procedure Description: Coronary angigram Diagnostic Cath Status: Urgent Diagnostic Findings * Left Main has minor luminal irregularities. * Circumflex has no significant disease. * Right Coronary Artery has no disease. * Mid Left Anterior Descending: mild 40% stenosis, LUANN: 3 flow. * Coronary angiography shows right dominance. Conclusions 1. Non-obstructive coronary artery disease. Recommendations * Aggressive risk factor control. * Can start Imdur. * Outpatient cardiology follow up in 4 weeks. Interventional RX Recommendation: medical therapy and/or counseling Diagnostic RX Recommendation: medical therapy and/or counseling Clinical Evaluation EBL: 5mL-10mL Procedural Details Procedure Consent Obtained. Admit Source: In Patient. Pre-Procedure Time Out. Identified patient by full name and date of as verbalized by the patient/guarantor. Does the consent match the physician's order: Yes. Accurate & Complete Informed Consent: Yes. Inpatient/Outpatient History & Physical on Chart: Yes. If H&P is completed, is and addenduem needed: Yes; If yes, is the addendum complete: N/A. Visualize and Verify Site with Patient/Guarantor: N/A. Relevant Radiology Images available: N/A. Pre-op teaching completed and patient verbalized understanding. The risks, benefits, and alternatives of sedation and/or procedure were discussed by physician. The patient agrees to continue. Procedure started. [facility] Clinical Fraility Score: 4: Vulnerable. Relief Cook Indications: Worsening Angina. Chest Pain Symptom Assessment: Typical Angina Symptoms. Cardiovascular Instability: No. Correct patient, site and procedure confirmed by cath team. PERRLA. Strong, equal hand behaviour support teacher bilaterally. Lungs clear x 5 lobes. IV Site on Arrival: 18 gauge in the left anticubital. Oxygen started at 2liters/min via nasal canula. bilateral groins was prepped with chloroprep then draped in the usual sterile fashion. right radial was prepped with chloroprep then draped in the usual sterile fashion. Physician notified. Baseline sample Acquired. HR: 55 BPM. Physician arrived. Physician scrubbed in. Immediate Pre-Procedure Time Out. Correct Patient: Yes; Correct Procedure: Yes; Correct Site: Yes; Correct Patient Position: Yes; Correct Supplies: Yes; Dried Flammable Prep: Yes; Blood Products Available: NA;. Lidocaine 1% infiltrated to the right radial. Arterial access obtained. A 5 israeli TIG catheter in over wire. wire out. hand injection performed. Catheter out. manual pressure being held on radial spot. Lidocaine 1% infiltrated to the right groin. Arterial access obtained with micropuncture set. A 5 israeli JL4 catheter in over wire. Multiple views taken of left coronary artery. Catheter out. A 5 israeli JR4 catheter in over wire. Multiple views taken of right coronary artery. Catheter out. reviewing pictures. TR band placed. Hemostasis obtained. Sheath(s) sutured into position with 2-0 silk and sterile 4x4's and Op-site applied over the site. No oozing or signs and symptoms of hematoma noted. Arterial sheath flushed and connected to tranducer and pressure bag with heparinized saline. Post Procedure: Pulses reassessed and unchanged. PERRLA. Strong, equal hand behaviour support teacher bilaterally. No VTE prophylaxis required. Medication's Wasted: Lidocaine 1% = 8 mL. Medication's Wasted: Nitro = 49.8 mg. Medication's Wasted: Heparin = 4000 units. Total IV fluids: 24.4 mL. Contrast type used: Omnipaque 300 mgI/mL, 500 mL bottle. Contrast Material : Omnipaque 65 ml. Post-op diagnosis: moderate mid LAD stenosis. Complications: none. Estimated blood loss: 5mL-10mL. A TR Band was successful obtaining hemostatsis at the Right Radial artery insertion site. A Suture was successful obtaining hemostatsis at the Right Femoral artery insertion site. Procedure completed. Patient transferred by bed to ICU. Vital chart was stopped. Access Site Site: Right Radial artery Sheath Size: 6 Fr Hemostasis Method: TR Band Hemostasis Success: Successful Site: Right Femoral artery Sheath Size: 6 Fr Hemostasis Method: Suture Hemostasis Success: Successful Procedure Medications Start: 7:22 AM Stop: 7:22 AM Medication: Benadryl Amount: 50 mg Route: I.V. Start: 7:27 AM Stop: 7:27 AM Medication: Versed Amount: 1 mg Route: I.V. Start: 7:27 AM Stop: 7:27 AM Medication: Fentanyl Amount: 50 mcg Route: I.V. Start: 7:29 AM Stop: 7:29 AM Medication: Nitrogylcerin Amount: 200 mcg Route: I.A. Start: 7:33 AM Stop: 7:33 AM Medication: Versed Amount: 1 mg Route: I.V. I, the attending physician, have reviewed and verified all procedure medications. Yes, all medications given per verbal order History/Risk Factors Tobacco Use: Former Report Signatures Finalized by Papi Blanca MD on 08/17/2020 06:02 PM
--- NOTE | 2020-08-09 07:18 | W.PM.OPSUD ---
Surgery/Procedure H&P Update DATE OF PROCEDURE: August 09, 2020 DATE H&P PERFORMED: 08/08/20 H&P UPDATE INFORMATION: I have reviewed H&P completed within last 30 days, I have examined patient prior to procedure and No changes to prior documentation PREOP DIAGNOSIS: Worsening angina/Abnormal stress test PRIMARY INDICATION FOR PROCEDURE: Worsening angina/abnormal stress test PATIENT REASSESSED PRIOR TO SEDATION, WITH NO CHANGE NOTED: Yes PHYSICAL EXAM: alert, oriented x 3, clear to auscultation bilaterally and regular rate & rhythm AIRWAY EVAL/ANESTHESIA PLAN: normal airway, ASA III, Monitored Anesthesia, Local Anesthesia, Risks, benefits & alternatives of sedation and/or procedure discussed and Patient agrees to continue as planned
[2020-08-09] MEDS: sodium chloride 0.9% 1,000 ML 100 ML IV (08:09)
--- NOTE | 2020-08-09 08:50 | P.PN_ITS ---
Vitals/I&O/Wt Last Vital Signs Temp 98.2 F 08/09/20 04:00 Pulse 54 L 08/09/20 08:03 Resp 14 08/09/20 08:00 BP 97/55 08/09/20 08:00 Pulse Ox 91 08/09/20 08:00 08/08/20 08/09/20 08/09/20 22:59 06:59 14:59 Intake Total 687.5 / 687.5 Output Total 300 / 300 Balance -300 / -300 687.5 / 687.5 Weight last 48 hrs Weight 103.646 kg Weight 105.687 kg Data : 08/09/20 04:20 08/09/20 04:20 A&P Assessment and plan (1) Unstable angina: Status: Acute (2) Dyspnea: Status: Suspected (3) PAD (peripheral artery disease): Status: Acute (4) H/O mitral valve replacement with tissue graft: Status: Acute (5) BPH loc w urin obs/LUTS: Status: Acute (6) SUNNY (acute kidney injury): Status: Acute Additional A&P Information Unstable angina Patient symptoms are angina equivalent Previous history of bioprosthetic mitral valve, normal coronary angiogram, Dr. Mata sent him from cardiology clinic for an angiogram in the morning, we will keep him n.p.o. Troponin with negative delta EKG showing no new changes however T wave changes noticed in inferior and septal leads, patient chest pain-free on nitro paste EKG revealed QTc interval prolongation, potassium 4.3 we will check magnesium level Sinus bradycardia noted on EKG however at the time of my evaluation heart rate was in 70s, he was perfusing well systolic blood pressure 136 mmHg, Will monitor with cardiac telemetry, I would not initiate ACS protocol for now In case of recurrence of symptoms will update Dr. Mata Please note previous coronary angiogram was normal however myocardial perfusion scan on 08/01 showed fixed large size perfusion defect in inferior apical huitron consistent with prior infarct SUNNY Baseline creatinine 0.9-1 Has history of urine retention secondary to BPH requiring Gongora catheter placement in the past, When entered the room patient had voided about 50 cc of urine, will do bladder scan every 4 hours, at home he does intermittent self-catheterization every 4 hours as well his residual volume has been decreasing lately, continue tamsulosin Hold lisinopril for now along Lasix and spironolactone Sleep apnea Patient uses 2 L of oxygen at night with AVAps Bilateral upper extremity numbness and tingling Might benefit from a cervical CT scan to rule out any radiculopathy however no active strokelike symptoms N.p.o. after midnight DVT prophylaxis Heparin Full code Coding Level of Care Code Acute Funeral Director'S Assistant for Chg Fwd Diagnoses Unstable angina I20.0 Dyspnea R06.00 PAD (peripheral artery disease) I73.9 H/O mitral valve replacement with tissue graft Z95.4 BPH loc w urin obs/LUTS N40.1 SUNNY (acute kidney injury) N17.9
--- NOTE | 2020-08-09 09:03 | PC.CHAP ---
Pastoral Care Encounter/Spiritual Assessment Type of Contact [] Declined welder gas tungsten arc visit [] Patient/Family/Request visit [] Outpatient visit [] Follow-up visit [] Physician referral [] Code/Alert [x] Routine visit [] Staff referral [] Actively dying [] Patient sleeping [] Family support [] [] Out of room [] Palliative care [] [] Receiving care in room [] Pre-surgical visit [] Trauma [] Long length of stay [x] ICU visit [] Other: Relational/Emotional Strength [] Patient feels connected with others/family/visitors/staff [] Distress [] Loneliness/isolation [] Abandonment Spirituality of Patient [x] Person of Scarlett [] Attends Mandaen of their Scarlett [] Believes in Prayer [] Reads Bible or Adventism materials [] There are Spiritual issues to be addressed Rivet Flunky Interventions [x] Prayer [] Active listening [] Non-anxious presence [] Spiritual/emotional support [] Crisis/trauma care [] Spiritual counseling [] Bereavement support [] Provided bereavement packet [] Provided Bible/devotional materials [] Provided toy/stuffed animal, coloring book to patient or family member [] Provided Communion [] Anointing/Nicolaus [] Salvation [x] Completed spiritual assessment [] Other: Impact on Illness or Injury [] Angry [] Fearful [] Anxious [] Often cries [] Exhaustion [] Unable to work [] Unable to attend yarsanism [] Unable to walk/stand [] Unable to read [] Unable to drive [] Unable to eat/drink [] Unable to sleep [] Unable to be with family [] Patient intubated [] Other: Summary Time spent with patient
--- NOTE | 2020-08-09 09:28 | PM.PN ---
Subjective Subjective: Interval history: Patient is overall doing well. He denies any chest pains overnight. He underwent coronary angiogram this morning that showed moderate mid LAD stenosis however rest of the coronary arteries were normal. Given his recent stress test did not reveal significant ischemia in the LAD territory, we will medically treat at this time. Vitals/I&O/Wt Last Vital Signs Temp 98.2 F 08/09/20 04:00 Pulse 54 L 08/09/20 08:03 Resp 14 08/09/20 08:00 BP 97/55 08/09/20 08:00 Pulse Ox 91 08/09/20 08:00 08/08/20 08/09/20 08/09/20 22:59 06:59 14:59 Intake Total 687.5 / 687.5 Output Total 300 / 300 Balance -300 / -300 687.5 / 687.5 Weight last 48 hrs Weight 228 lb 8 oz Weight 233 lb Physical Exam Narrative: EXAM NARRATIVE: GENERAL: Patient is alert, awake and oriented x3. [] NECK: No jugular vein distension. [] HEENT: No cyanosis. No icterus. No pallor. [] HEART: Regular S1 and S2. No murmur, rub or gallop. [] LUNGS: Clear to auscultate bilaterally. [] ABDOMEN: Soft, nontender and nondistended. Positive bowel sounds. No guarding, rebound or tenderness. [] CENTRAL NERVOUS SYSTEM: Grossly nonfocal. [] EXTREMITIES: Lower extremities with 1+ edema bilaterally. Pulses palpable in the lower extremities, both dorsalis pedis and posterior tibial. [] Data : 08/09/20 04:20 08/09/20 04:20 A&P Assessment and plan (1) Unstable angina: Status: Acute (2) Shortness of breath: Status: Acute (3) H/O mitral valve replacement with tissue graft: Status: Acute (4) PAD (peripheral artery disease): Status: Acute Patient had a recent admission with troponin elevation when he had UTI. He has been having chest pain symptoms. His stress test was abnormal however it showed mostly fixed defect with some niko-infarct ischemia. Coronary angiogram revealed moderate mid LAD stenosis. However patient recent stress test did not reveal significant ischemia in this territory. We will medically manage it. Can add Imdur 30 mg daily. Continue current medications including aspirin and statin therapy. Thank you for involving us with the care of this patient. Patient is ready to be discharged from cardiology standpoint. Please call with questions. Attestations Medical Necessity Statement*: Care expected to cross 2 midnights. Coding Level of Care Code Acute Edging Catcher for Roberto Carlos Boogie Diagnoses Unstable angina I20.0 Shortness of breath R06.02 H/O mitral valve replacement with tissue graft Z95.4 PAD (peripheral artery disease) I73.9
[2020-08-09 09:30] LABS: Chol HDL Ratio 4.56 mg/dL (1.0-5.00); Cholesterol 123 mg/dL (0-200); HDL Cholesterol 27 mg/dL (60-100); LDL Cholesterol Calculated 62 mg/dL (50-129); NT Pro B Type Natriuretic Pept 153 pg/mL (0-450); Triglycerides 170 mg/dL (0-150); VLDL Cholestrol Calculation 34 mg/dL (0-30)
[2020-08-09 09:38] LABS: Estmated Average Glucose 94; Hemoglobin A1C 4.9 % (4.0-6.0)
[2020-08-09] MEDS: finasteride 5 mg Tablet PO (09:38)
[2020-08-09] MEDS: atorvastatin 40 mg Tablet PO (09:40)
--- NOTE | 2020-08-09 10:01 | PM.DCS ---
Discharge Providers Date of Admission: 08/08/20 17:51 Date of Discharge: August 09, 2020 Attending Provider at Admission: Gerry Marcum MD Attending Provider at Discharge: Gerry Marcum MD Consults: Cardiology: Dr. Long Primary Care Provider: Markel Valero MD Diagnoses at Discharge Discharge Diagnosis (1) Unstable angina: Status: Acute (2) Shortness of breath: Status: Acute (3) H/O mitral valve replacement with tissue graft: Status: Acute (4) PAD (peripheral artery disease): Status: Acute Reason for Visit Reason for Visit: CHEST PAINS Hospital Course Hospital Course Reid Nieves is a 74 year old male who has history of bioprosthetic mitral valve, previous coronary angiogram revealed normal coronary vessels, takes sildenafil for pulmonary hypertension, was sent in from cardiology clinic for unstable angina. Patient is stating that for last few months he has been experiencing chest discomfort intermittently without any aggravating factors, he would experience chest pain for about 1 to 2 minutes which he is describing as pressure-like sensation left-sided, today when he was feeling fuel tank epigastric marcano to come to his follow-up appointment at cardiology clinic he started experiencing dizzy which he is describing as lightheaded, numbness and tingling in his fingers bilaterally, he felt nauseous. This time he was describing his chest pain as pressure-like sensation, left-sided which only lasted for about 2 to 3 minutes, he did not sprints any syncope, nausea, vomiting or diaphoresis. He explained his symptoms to Dr. Mata at the clinic and was sent to the ER to be admitted for an angiogram in the morning. Diagnostics in the ER revealed normal CBC, BMP troponin with negative delta EKG showing T wave inversion V1 V2 which are not new as compared to previous EKGs, subtle changes in inferior leads however no STEMI changes, at the time of my evaluation he had Nitropaste on and he was symptom free, heart rate 71 however EKGs captured sinus bradycardia with prolonged QTC potassium 4.3, will check magnesium level Of note, patient has been experiencing urinary retention secondary to BPH, he required placement of [place] catheter for about 3 months in the past which was eventually removed and now he is requiring intermittent self-catheterization every 4 hours, patient is endorsing that he catheterizes himself after he voids, he is noticing that his residual urine volume is reducing in quantity, lately it has been less than an ounce which used to be about 4 ounces of urine volume after voiding. His creatinine is 1.3 today. Patient is also stating that his energy level and physical activity intensity has increased since he started using oxygen with his BiPAP at night. Patient went to the hospital for management of chest pain and evaluation. During hospitalization patient did not have any further chest pain. Cardiology was consulted and he underwent cardiac angiogram which showed moderate mid LAD stenosis however rest of the coronary arteries were normal. Given his recent stress test did not reveal significant ischemia in the LAD territory, we will medically treat at this time. Patient had an uneventful hospitalization. On admission he was found to be in acute kidney injury for which she was treated with IV fluids. His diuretic was withheld. He tolerated the treatment well and kidney functions improved. On the day of discharge creatinine is 1.2. He is being discharged in medically stable condition with advised to follow-up with his primary care provider within next 1 week and with his cap blocker within next 7 to 10 days. Patient is been discharged on Imdur. He has been counseled in detail to make sure he does not take Imdur and sildenafil together. Patient is also advised to withhold his Lasix for 1 week and recheck his creatinine with his primary care provider within a week. Physical Exam Narrative: EXAM NARRATIVE: Very pleasant cooperative elderly male Surgical scar franklin noticed on anterior chest S1, S2, I was not able to appreciate any murmur no active signs of heart failure however mild pitting edema of lower extremity Abdomen soft nontender bowel sounds present Central obesity EOMI, PERRLA No neurological deficits Bilateral breath sounds no adventitious/audible wheezing or rhonchi Patient is hard of hearing, no active strokelike symptoms Very pleasant and cooperative during my evaluation Discharge Data Data Completed and Pending: Completed Studies During Hospitalization Category Date Time Status XR chest 1V denisse ble [id number] Stat Exams 08/08/20 16:17 Completed Pending at discharge Category Date Time Status CORD TIRE BUILDER request for service Routin e Exams 08/09/20 07:17 Taken Partial Thrombopl astin Time Routine Lab 08/09/20 10:09 Ordered Labs from last 24 hours 08/09/20 08/09/20 08/09/20 04:20 04:20 04:20 WBC RBC Hgb Hct MCV MCH MCHC RDW Plt Count MPV Neut % (Auto) Lymph % (Auto) Norton % (Auto) Eos % (Auto) Baso % (Auto) Neut # (Auto) Lymph # (Auto) Norton # (Auto) Eos # (Auto) Baso # (Auto) Nucleated RBC % (a uto) Nucleated RBCs # PT INR APTT Sodium 140 Potassium 3.9 Chloride 110 H Carbon Dioxide 21 L Anion Gap 12.9 BUN 13 Creatinine 1.2 GFR Calculation Not Reportable Glucose 86 POC Glucose Estimat Average Gl ucose 94 Hemoglobin A1c 4.9 Calculated Osmolal ity 289 Calcium 8.1 L Magnesium Total Bilirubin 0.7 AST 20 ALT 24 Alkaline Phosphata se 74 Troponin T Baselin e Troponin T 120 Min [place] Delta Troponin T Troponin T Hi Sens 6Hr Troponin T Hi Sens 6Hr Delta NT-Pro-B Natriuret Pep 153 Total Protein 6.4 L Albumin 3.3 L Globulin 3.1 Triglycerides 170 H Cholesterol 123 LDL Cholesterol, C alc 62 Total VLDL Cholest jatin 34 H HDL Cholesterol 27 L Cholesterol/HDL Ra jennifer 4.56 08/09/20 08/08/20 08/08/20 04:20 22:58 22:16 WBC 5.8 RBC 3.59 L Hgb 10.9 L Hct 34.5 L MCV 96.1 H MCH 30.4 MCHC 31.6 RDW 13.2 Plt Count 248 MPV 11.5 H Neut % (Auto) 55.9 Lymph % (Auto) 30.0 Norton % (Auto) 11.6 Eos % (Auto) 1.9 Baso % (Auto) 0.3 Neut # (Auto) 3.22 Lymph # (Auto) 1.7 Norton # (Auto) 0.7 Eos # (Auto) 0.1 Baso # (Auto) 0.0 Nucleated RBC % (a uto) 0 Nucleated RBCs # 0.0 PT INR APTT Sodium Potassium Chloride Carbon Dioxide Anion Gap BUN Creatinine GFR Calculation Glucose POC Glucose 91 Estimat Average Gl ucose Hemoglobin A1c Calculated Osmolal ity Calcium Magnesium Total Bilirubin AST ALT Alkaline Phosphata se Troponin T Baselin e Troponin T 120 Min [place] Delta Troponin T Troponin T Hi Sens 6Hr 25.90 H Troponin T Hi Sens 6Hr Delta -0.10 L NT-Pro-B Natriuret Pep Total Protein Albumin Globulin Triglycerides Cholesterol LDL Cholesterol, C alc Total VLDL Cholest jatin HDL Cholesterol Cholesterol/HDL Ra jennifer 08/08/20 08/08/20 08/08/20 18:58 17:05 17:05 WBC RBC Hgb Hct MCV MCH MCHC RDW Plt Count MPV Neut % (Auto) Lymph % (Auto) Norton % (Auto) Eos % (Auto) Baso % (Auto) Neut # (Auto) Lymph # (Auto) Norton # (Auto) Eos # (Auto) Baso # (Auto) Nucleated RBC % (a uto) Nucleated RBCs # PT INR APTT Sodium Potassium Chloride Carbon Dioxide Anion Gap BUN Creatinine GFR Calculation Glucose POC Glucose Estimat Average Gl ucose Hemoglobin A1c Calculated Osmolal ity Calcium Magnesium 2.3 Total Bilirubin AST ALT Alkaline Phosphata se Troponin T Baselin e 26 H Troponin T 120 Min [place] 23.44 H Delta Troponin T -2.56 L Troponin T Hi Sens 6Hr Troponin T Hi Sens 6Hr Delta NT-Pro-B Natriuret Pep Total Protein Albumin Globulin Triglycerides Cholesterol LDL Cholesterol, C alc Total VLDL Cholest jatin HDL Cholesterol Cholesterol/HDL Ra jennifer 08/08/20 08/08/20 08/08/20 17:05 17:05 17:05 WBC 6.7 RBC 4.23 Hgb 13.1 Hct 39.6 L MCV 93.6 MCH 31.0 MCHC 33.1 RDW 13.1 Plt Count 269 MPV 11.6 H Neut % (Auto) 59.0 Lymph % (Auto) 28.7 Norton % (Auto) 9.7 Eos % (Auto) 1.9 Baso % (Auto) 0.3 Neut # (Auto) 3.96 Lymph # (Auto) 1.9 Norton # (Auto) 0.7 Eos # (Auto) 0.1 Baso # (Auto) 0.0 Nucleated RBC % (a uto) 0 Nucleated RBCs # 0.0 PT 12.90 INR 0.95 APTT 28.7 Sodium 138 Potassium 4.3 Chloride 105 Carbon Dioxide 21 L Anion Gap 16.3 BUN 13 Creatinine 1.3 H GFR Calculation Not Reportable Glucose 86 POC Glucose Estimat Average Gl ucose Hemoglobin A1c Calculated Osmolal ity 285 Calcium 8.7 Magnesium Total Bilirubin 0.5 AST 27 ALT 33 Alkaline Phosphata se 90 Troponin T Baselin e Troponin T 120 Min [place] Delta Troponin T Troponin T Hi Sens 6Hr Troponin T Hi Sens 6Hr Delta NT-Pro-B Natriuret Pep Total Protein 7.4 Albumin 4.1 Globulin 3.3 Triglycerides Cholesterol LDL Cholesterol, C alc Total VLDL Cholest jatin HDL Cholesterol Cholesterol/HDL Ra jennifer Addt'l Data from Hospital Stay: Laboratory Results WBC 5.8 10^3/uL (4.0- 10.0) 08/09/20 04:20 RBC 3.59 10^6/uL (4.1 -5.3) L 08/09/20 04:20 Hgb 10.9 g/dL (11.7-1 6.6) L 08/09/20 04:20 Hct 34.5 % (42.0-52.0 ) L 08/09/20 04:20 MCV 96.1 fL (80-94) H 08/09/20 04:20 MCH 30.4 pg (28.0-34. 0) 08/09/20 04:20 MCHC 31.6 g/dL (30.0-3 6.0) 08/09/20 04:20 RDW 13.2 % (12.1-15.1 ) 08/09/20 04:20 Plt Count 248 10^3/cmm (130 -400) 08/09/20 04:20 MPV 11.5 fL (7.4-10.4 ) H 08/09/20 04:20 Neut % (Auto) 55.9 % 08/09/20 04:20 Lymph % (Auto) 30.0 % 08/09/20 04:20 Norton % (Auto) 11.6 % 08/09/20 04:20 Eos % (Auto) 1.9 % 08/09/20 04:20 Baso % (Auto) 0.3 % 08/09/20 04:20 Neut # (Auto) 3.22 10^3/uL (1.8 -7.7) 08/09/20 04:20 Lymph # (Auto) 1.7 10^3/uL (0.8- 4.8) 08/09/20 04:20 Norton # (Auto) 0.7 10^3/uL (0.2- 0.9) 08/09/20 04:20 Eos # (Auto) 0.1 10^3/uL (0.0- 0.8) 08/09/20 04:20 Baso # (Auto) 0.0 10^3/uL (0.0- 0.1) 08/09/20 04:20 Nucleated RBC % (a uto) 0 % 08/09/20 04:20 Nucleated RBCs # 0.0 /100WBC 08/09/20 04:20 PT 12.90 SECONDS (12 .1-14.9) 08/08/20 17:05 INR 0.95 (0.8-1.2) 08/08/20 17:05 APTT 28.7 SECONDS (23. 9-36.7) 08/08/20 17:05 Sodium 140 mmol/L (136-1 45) 08/09/20 04:20 Potassium 3.9 mmol/L (3.5-5 .1) 08/09/20 04:20 Chloride 110 mmol/L (98-10 7) H 08/09/20 04:20 Carbon Dioxide 21 mmol/L (22-29) L 08/09/20 04:20 Anion Gap 12.9 (5-19) 08/09/20 04:20 BUN 13 mg/dL (8-23) 08/09/20 04:20 Creatinine 1.2 mg/dL (0.7-1. 2) 08/09/20 04:20 GFR Calculation Not Reportable 08/09/20 04:20 Glucose 86 mg/dL (65-115) 08/09/20 04:20 POC Glucose 91 mg/dL (70-110) 08/08/20 22:16 Estimat Average Gl ucose 94 08/09/20 04:20 Hemoglobin A1c 4.9 % (4.0-6.0) 08/09/20 04:20 Calculated Osmolal ity 289 mOsm/kg (285- 295) 08/09/20 04:20 Calcium 8.1 mg/dL (8.5-10 .5) L 08/09/20 04:20 Magnesium 2.3 mg/dL (1.7-2. 3) 08/08/20 17:05 Total Bilirubin 0.7 mg/dL (0.15-1 .2) 08/09/20 04:20 AST 20 U/L (0-40) 08/09/20 04:20 ALT 24 U/L (0-41) 08/09/20 04:20 Alkaline Phosphata se 74 IU/L (40-130) 08/09/20 04:20 Troponin T Baselin e 26 ng/L (0-15) H 08/08/20 17:05 Troponin T 120 Min [place] 23.44 ng/L (0-15) H 08/08/20 18:58 Delta Troponin T -2.56 ABS# (0-10) L 08/08/20 18:58 Troponin T Hi Sens 6Hr 25.90 ng/L (0-15) H 08/08/20 22:58 Troponin T Hi Sens 6Hr Delta -0.10 ng/L (0-12) L 08/08/20 22:58 NT-Pro-B Natriuret Pep 153 pg/mL (0-450) 08/09/20 04:20 Total Protein 6.4 g/dL (6.6-8.7 ) L 08/09/20 04:20 Albumin 3.3 g/dL (3.5-5.2 ) L 08/09/20 04:20 Globulin 3.1 g/dL (1.3-4.6 ) 08/09/20 04:20 Triglycerides 170 mg/dL (0-150) H 08/09/20 04:20 Cholesterol 123 mg/dL (0-200) 08/09/20 04:20 LDL Cholesterol, C alc 62 mg/dL (50-129) 08/09/20 04:20 Total VLDL Cholest jatin 34 mg/dL (0-30) H 08/09/20 04:20 HDL Cholesterol 27 mg/dL (60-100) L 08/09/20 04:20 Cholesterol/HDL Ra jennifer 4.56 mg/dL (1.0-5 .00) 08/09/20 04:20 Impressions Chest X-Ray 08/08/20 16:17 IMPRESSION: 1. Left base atelectasis. Vitals: Last Vital Signs Temp 98.2 F 08/09/20 08:03 Pulse 44 L 08/09/20 08:03 Resp 16 08/09/20 08:03 BP 121/64 08/09/20 08:03 Pulse Ox 91 08/09/20 08:00 Discharge Plan Discharge Patient Disposition: Home Condition: Stable Prescriptions: New isosorbide mononitrate 30 mg tablet extended release 24 hr 30 mg PO DAILY Qty: 30 RF: 0 finasteride 5 mg Tablet 5 mg PO DAILY Qty: 30 RF: 0 omeprazole 20 mg capsule,delayed release(DR/EC) 20 mg PO DAILY Qty: 30 RF: 0 sucralfate [Carafate] 1 gram tablet 1 g PO BID Qty: 20 RF: 0 Continued tramadol 50 mg tablet 50 mg PO PRN RF: 0 aspirin 81 mg tablet,delayed release (DR/EC) 81 mg PO DAILY@0700 RF: 0 simvastatin 20 mg tablet 20 mg PO DAILY@1999 RF: 0 cyanocobalamin (vitamin B-12) 2 tab PO DAILY@07 RF: 0 albuterol sulfate 2.5 mg /3 mL (0.083 %) solution for nebulization 2.5 mg inhalation TID PRN (Reason: Shortness Of Breath) RF: 0 Flomax 0.4 mg capsule 0.4 mg PO BID@699,1999 RF: 0 Symbicort 160-4.5 mcg/actuation HFA aerosol inhaler 2 puff INHALATION BID@699,1999 RF: 0 ondansetron HCl 4 mg tablet 4 mg PO Q4H PRN (Reason: nausea/vomiting) RF: 0 fluoxetine 20 mg capsule 20 mg PO DAILY@1999 RF: 0 sildenafil [Viagra] 25 mg Tablet 25 mg PO PRN RF: 0 trazodone 150 mg tablet 150 mg PO BEDTIME PRN (Reason: Sleep) RF: 0 magnesium-potassium 1 tab PO DAILY@699 RF: 0 vitamin E 3 cap PO DAILY@1999 RF: 0 montelukast 10 mg tablet 10 mg PO DAILY@1999 RF: 0 metoprolol tartrate 25 mg tablet 12.5 mg PO BID@07 RF: 0 Held furosemide [Lasix] 20 mg tablet 20 mg PO DAILY@07 RF: 0 Hold Instructions: Resume on 08/16/20. Discontinued spironolactone 25 mg tablet 25 mg PO DAILY@1999 RF: 0 Discharge Orders: Discharge Order (Routine); Ordered 08/09/20 Ordered By: Gerry Marcum Other Ambulatory Orders: DME: Hospital Bed (Order) Location: None Selected Ordered By: Papi Blanca Referrals: Papi Blanca M.D [Physician] - 1 week (YOUR SCHEDULED FOLLOW UP FOR HEART CARE SERVICES,YOU WILL FOLLOW UP ,WITH RAG WILLOW OPERATOR [facility] [phone] AND WILL HAVE LAB DRAW AT THAT TIME , DATE OF AUGUST 16, 2020 AT TIME OF 12:45 PM ,WILL SCHEDULE FOR FOLLOW WITH ) Markel Valero MD [Primary Care Provider] - 7-10 days ([facility] [place] [facility]FOR DATE OF AUGUST 20, 2020 AT TIME OF 2:30 PM) Discharge Diet: Cardiac, Low Salt and Low Fat Discharge Activity: Resume usual activity Patient Instructions: Left Heart Catheterization (DC), Opioid Safety, Post Angiogram Home Care Instructions Activity Restrictions/Additional Instructions: Recheck BMP in 1 week. Follow up with your PCP in 7-10 days. Hold lasix for 1 week. Can take if you experience shortness of breath. You are new medication called Imdur. Be cautious to take with Viagra as both decrease blood pressure. Discharge Attestations Time Spent in Discharge Care*: greater than 30 min Specific Discharge Activities: educating patient, discussing with pcp/other providers, discussing with returned case inspector/social workers/dc planners, documenting/other paperwork and evaluating patient/reviewing data Status at Discharge: Cognitive status at discharge: cognitively intact, Behavioral status at discharge: cooperative, Functional status at discharge: independent ambulation Overall status at discharge: patient is back to baseline Quality Metrics Clinical Quality Measures During this hospital stay, did patient experience: None Coding Level of Care Code Acute Chg FW DC note Diagnoses Unstable angina I20.0 Shortness of breath R06.02 H/O mitral valve replacement with tissue graft Z95.4 PAD (peripheral artery disease) I73.9
[2020-08-09 11:04] LABS: Partial Thromboplastin Time 32.8 SECONDS (23.9-36.7)
--- NOTE | 2020-08-09 11:59 | PC.NURSE ---
pt voided approx 350cc urine. Post void bladder scan show approx 50cc of urine remaining. will monitor
--- NOTE | 2020-08-09 12:12 | PC.NURSE ---
femoral sheath removed per post cath orders. cathlon intact. cath site clean and dry. dressing applied will monitor
--- NOTE | 2020-08-09 12:21 | PC.NURSE ---
total of 15cc removed from pt TR band. dressing placed on wrist. will monitor
== END 2020-08-09 17:00 | disposition home or self-care (01) | DRG 287 ==
LOC: ER 16:37 → ICU 20:43
PROVIDERS: Internal Medicine; Admitting Provider Student in an Organized Health Care Education/Training Program; Emergency Provider Family Medicine; PCP Family Medicine; Visit Provider Student in an Organized Health Care Education/Training Program
PROC: 4A023N7 Measurement of Cardiac Sampling and Pressure, Left Heart, Percutaneous Approach (ICD-10-PCS; principal; 2020-08-09 13:00)
DX: I25.110 Atherosclerotic heart disease of native coronary artery with unstable angina pectoris (principal); N17.9 Acute kidney failure, unspecified; Z95.3 Presence of xenogenic heart valve; I27.20 Pulmonary hypertension, unspecified; N40.1 Benign prostatic hyperplasia with lower urinary tract symptoms; R33.8 Other retention of urine; M17.0 Bilateral primary osteoarthritis of knee; I25.2 Old myocardial infarction; G47.33 Obstructive sleep apnea (adult) (pediatric); B35.1 Tinea unguium; I73.9 Peripheral vascular disease, unspecified; Z87.891 Personal history of nicotine dependence; Z87.440 Personal history of urinary (tract) infections; Z79.82 Long term (current) use of aspirin
CPT/HCPCS: 36415; 36416; 51798; 71045; 80053; 80061; 82962; 83036; 83735; 83880; 84484; 85025; 85610; 85730; 93005; 93454; 96372; 99285; C1769; C1887; C1894; J1200; J1644; J2250; J3010; J3490; J7030; Q9967

== ENCOUNTER → 2020-08-16 10:49 | Outpatient (BNVA) | payer MEDICARE, OTHER, SELFPAY | PROVIDERS: PCP Family Medicine; Visit Provider Nurse Practitioner Family | DX: I20.0 Unstable angina (principal) | CPT/HCPCS: 80048 ==

== ENCOUNTER → 2020-08-17 09:30 | Outpatient (BNVA) | payer MEDICARE, OTHER, SELFPAY | PROVIDERS: PCP Family Medicine; Visit Provider Urology | DX: R33.8 Other retention of urine (principal); N39.0 Urinary tract infection, site not specified; N45.1 Epididymitis; N40.1 Benign prostatic hyperplasia with lower urinary tract symptoms | CPT/HCPCS: 81003; 87086 ==

== ENCOUNTER 2020-09-26 11:03 | Outpatient (RCR) | payer MEDICARE, OTHER, SELFPAY | END 2020-10-06 23:59 | disposition home or self-care (01) | LOC: SPT 11:03 | PROVIDERS: PCP Family Medicine; Referring Provider Internal Medicine Critical Care Medicine; Visit Provider Internal Medicine Critical Care Medicine | DX: R53.1 Weakness (principal) | CPT/HCPCS: 97110; 97162 ==

== ENCOUNTER → 2020-10-01 09:00 | Outpatient (BNVA) | payer MEDICARE, OTHER, SELFPAY | PROVIDERS: PCP Family Medicine; Visit Provider Urology | DX: N40.1 Benign prostatic hyperplasia with lower urinary tract symptoms (principal) | CPT/HCPCS: 81003 ==

== ENCOUNTER 2020-10-07 06:00 | Outpatient (RCR) | payer MEDICARE, OTHER, SELFPAY | END 2020-11-06 23:59 | disposition home or self-care (01) | LOC: SPT 06:00 | PROVIDERS: PCP Family Medicine; Referring Provider Internal Medicine Critical Care Medicine; Visit Provider Internal Medicine Critical Care Medicine | DX: R53.1 Weakness (principal) | CPT/HCPCS: 97110 ==

== ENCOUNTER 2020-12-21 12:36 | Outpatient (CLI) | payer MEDICARE, OTHER, SELFPAY ==
--- NOTE | 2020-12-21 12:45 | USCV_ITS ---
Reid Nieves Age: 75 Gender: M : 1945 Exam Date: 12/21/2020 13:06 Ordering Phys: Papi Blanca M.D ([email or web address]) Technologist: Arabella Levin Exam Location: [facility] [place] Indication: REPLACED MV VALVE BP: / HR: 50 Rhythm: Sinus Technical Quality: Adequate MEASUREMENTS (Male / Female) Normal Values 2D ECHO LV Diastolic Diameter PLAX 4.8 cm 4.2 - 5.9 / 3.9 - 5.3 cm LV Systolic Diameter PLAX 3.6 cm LV Chamber Size 5.0 cm IVS Diastolic Thickness 1.3 cm 0.6 - 1.0 / 0.6 - 0.9 cm IVS Systolic Thickness 1.7 cm LVPW Diastolic Thickness 1.3 cm 0.6 - 1.0 / 0.6 - 0.9 cm LVPW Systolic Thickness 1.6 cm RV Chamber Size 5.7 cm LVOT Diameter 2.1 cm LV Ejection Fraction 2D Teich 49.9 % LV Ejection Fraction MOD 2C 74.7 % LV Ejection Fraction 2C AL 74.8 % LA Diameter 5.1 cm LA Width 3.5 cm LA Height 4.8 cm RA Width 4.5 cm RA Height 4.7 cm Aorta at Sinotubular Diameter 3.7 cm M-MODE LV Diastolic Diameter MM 4.4 cm 4.2 - 5.9 / 3.9 - 5.3 cm LV Systolic Diameter MM 2.9 cm LV Ejection Fraction MM Teich 61.8 % IVS Diastolic Thickness MM 1.4 cm 0.6 - 1.0 / 0.6 - 0.9 cm IVS Systolic Thickness MM 1.9 cm LVPW Diastolic Thickness MM 1.4 cm 0.6 - 1.0 / 0.6 - 0.9 cm LVPW Systolic Thickness MM 2.9 cm Aortic Annulus Diameter 4.5 cm LA Ao Ratio MM 1.1 DOPPLER AV Peak Velocity 144.0 cm/s LVOT Peak Velocity 103.0 cm/s AV Area Cont Eq vti 2.6 cm squared AV Area Cont Eq pk 2.5 cm squared MV Peak Velocity 222.0 cm/s MV Area PHT 1.4 cm squared Mitral E to A Ratio 1.3 MV E' Velocity 51.0 cm/s Mitral E to MV E' Ratio 12.4 Mitral E to LV E' Lateral Ratio 10.7 Mitral E to LV E' Septal Ratio 14.8 TR Peak Velocity 331.3 cm/s TR Peak Gradient 43.9 mmHg TR Mean Velocity 262.6 cm/s TR Mean Gradient 30.8 mmHg TR Velocity Time Integral 148.2 cm TV Peak E Velocity 44.0 cm/s Right Atrial Pressure 15.0 mmHg Pulmonary Artery Systolic Pressu 58.9 mmHg PV Peak Velocity 101.0 cm/s RV Acceleration Time 0.1 s RV Ejection Time 0.4 s RV AcT/ET 0.3 FINDINGS Left Ventricle Normal left ventricular size. LV systolic function is normal with EF of 50-55%. No regional wall motion abnormalities. Grade 2 diastolic dysfunction Right Ventricle The right ventricle is normal in size and function. Right Atrium The right atrium is normal in size. RA pressure is elevated Left Atrium The left atrium is dilated. Mitral Valve There is a thickened bioprosthetic mitral valve with mild to Thickened bioprosthetic mitral valve. There is mild to moderate mitral stenosis and a mean gradient of 7 mmHg across mitral valve. There is no mitral regurgitation. Aortic Valve Structurally normal aortic valve without significant sclerosis or stenosis. There is mild aortic regurgitation. Tricuspid Valve Structurally normal tricuspid valve without significant stenosi. Mild tricuspid regurgitation. RVSP is 55-60mmHg. Moderate pulmonary hypertension Pulmonic Valve Structurally normal pulmonic valve without significant stenosis. There is mild to moderate pulmonic regurgitation. Pericardium Normal pericardium without effusion. Aorta Aortic root is dilated CONCLUSIONS LV systolic function is normal with EF of 50-55%. Grade 2 diastolic dysfunction RA pressure is elevated Left atrial enlargement Thickened bioprosthetic mitral valve is noted. Moderate mitral stenosis with a mean gradient of 7 mmHg across the mitral valve. Mild aortic regurgitation Mild tricuspid regurgitation Moderate pulmonary hypertension is seen Aortic root is dilated Compared to prior echocardiogram from 06/06/2020, patient has mild aortic regurgitation now and moderate pulmonary hypertension Papi Blanca MD (Electronically Signed) Final Date: 27 December 2020 12:10 S
== END 2020-12-21 12:37 | disposition home or self-care (01) ==
LOC: US 12:37
PROVIDERS: PCP Family Medicine; Visit Provider Internal Medicine
DX: I08.2 Rheumatic disorders of both aortic and tricuspid valves (principal); I77.819 Aortic ectasia, unspecified site; Z95.3 Presence of xenogenic heart valve; Z95.4 Presence of other heart-valve replacement
CPT/HCPCS: 93306

== ENCOUNTER → 2020-12-31 10:19 | Outpatient (BNVA) | payer MEDICARE, OTHER, SELFPAY | PROVIDERS: PCP Family Medicine; Visit Provider Internal Medicine | DX: R55 Syncope and collapse (principal); R07.9 Chest pain, unspecified; R06.02 Shortness of breath | CPT/HCPCS: 80048; 83880 ==

== ENCOUNTER → 2021-01-22 08:42 | Outpatient (BNVA) | payer MEDICARE, OTHER, SELFPAY | PROVIDERS: PCP Family Medicine; Referring Provider Internal Medicine Cardiovascular Disease; Visit Provider Internal Medicine Cardiovascular Disease | DX: Z01.818 Encounter for other preprocedural examination (principal); I51.89 Other ill-defined heart diseases; R07.9 Chest pain, unspecified; Z20.822 Contact with and (suspected) exposure to COVID-19 | CPT/HCPCS: 80048; 85025; 85610; 87635 ==

== ENCOUNTER 2021-01-28 06:04 | Outpatient (CLI) | payer MEDICARE, OTHER, SELFPAY ==
[2021-01-28] VITALS (24 sets, daily range): BP systolic 103–153; BP diastolic 55–79; PULSE 39–68; RESP 14–26; TEMP 36.3–36.8; O2SAT 98–100; BMI 32.9
--- NOTE | 2021-01-28 06:05 | XACV_ITS ---
Ht: 180 cm Wt: 107 kg BSA: 2.35 m2 Gender: Male : 1945 Any Known Allergies: Latex Exam Priority: Routine Procedure(s): Procedure Description: Diagnostic procedure Procedure Description: Left Heart Catheterization Procedure Description: Right Heart Catheterization Procedure Description: O2 saturation Procedure Description: Coronary Angiography Scott YOUNG; Diagnostic Cath Status: Elective Diagnostic Findings * No disease noted in the Left Main, Left Anterior Descending, Right, or Circumflex coronary arteries. * Coronary angiography shows right dominance. Conclusions 1. 1-PCWP 26 mmHg2-PA mean 33 mmHg3-RV 51/8/ 16 mmHg4-RA 15 mmHg CO Elena 6L/minCI 3.0 No significant stepup noted, post capillary moderate pulmonary hypertension. 2. No disease noted in the Left Main, Left Anterior Descending, Right, or Circumflex coronary arteries. Recommendations * Continue current medical management and risk factor modification. Diagnostic RX Recommendation: medical therapy and/or counseling Pressures Phase:Rest AO : 125 / 55 ( 82 ) @ 7:13:00 AM 126 / 46 ( 84 ) @ 7:13:00 AM 119 / 56 ( 75 ) @ 7:19:00 AM LV : 134 / -4 / 14 @ 7:13:00 AM 132 / -5 / 17 @ 7:13:00 AM RV : 51 / 17 / 18 @ 6:42:00 AM 52 / 8 / 16 @ 6:43:00 AM PA : 54 / 19 ( 33 ) @ 6:41:00 AM RA : a wave = 17 v wave = 17 mean = 15 @ 6:44:00 AM a wave = 17 v wave = 17 mean = 15 @ 6:44:00 AM PCW : a wave = 28 v wave = 35 mean = 26 @ 6:41:00 AM O2 Content Phase:Rest PA : O2 Content O2: 72.1 @ 7:13:00 AM Saturations Phase:Rest AO : 94 @ 7:13:00 AM RA : 69 @ 7:13:00 AM RV : 71 @ 7:19:00 AM PA : 72 @ 7:13:00 AM Cardiac Output Phase:Rest Elena : 6 @ 9:50:51 AM Elena Cardiac Index: 3 @ 9:50:51 AM Flow Phase:Rest Qp : 6 @ 9:50:51 AM Qs : 5 @ 9:50:51 AM Valves Phase:DefaultPhase AV : 6.0 @ 9:50:51 AM AV Mean Gradient: 11.0 @ 9:50:51 AM 11.0 @ 9:50:51 AM AV Flow: 344 @ 9:50:51 AM AV Area: 2.3 @ 9:50:51 AM AV Area Index: 1.04 @ 9:50:51 AM Clinical Evaluation EBL: 5mL-10mL Procedural Details Procedure Consent Obtained. Pre-Procedure Time Out. Identified patient by full name and date of as verbalized by the patient/guarantor. Does the consent match the physician's order: Yes. Accurate & Complete Informed Consent: Yes. Inpatient/Outpatient History & Physical on Chart: Yes. If H&P is completed, is and addenduem needed: No; If yes, is the addendum complete: N/A. Visualize and Verify Site with Patient/Guarantor: N/A. Relevant Radiology Images available: Yes. Pre-op teaching completed and patient verbalized understanding. The risks, benefits, and alternatives of sedation and/or procedure were discussed by physician. The patient agrees to continue. Procedure started. [facility] Clinical Fraility Score: 4: Vulnerable. Taker Down Indications: Other. Correct patient, site and procedure confirmed by cath team. PERRLA. Strong, equal hand assignment manager bilaterally. Lungs clear x 5 lobes. IV Site on Arrival: 20 gauge in the right anticubital. IV Fluids: 0.9% NaCl at KVO. 0 mL infused prior to lab nurse. Pre Procedural Pulses: bilateral dorsalis pedis was 2+. Pre Procedural Pulses: bilateral posterior tibial was 2+. right radial was prepped with chloroprep then draped in the usual sterile fashion. right brachial was prepped with chloroprep then draped in the usual sterile fashion. Baseline sample Acquired. HR: 48 BPM. Physician notified. Physician arrived. Kaelyn screen not working. We've called [employer] and [employer] waiting for response. Physician scrubbed in. Immediate Pre-Procedure Time Out. Correct Patient: Yes; Correct Procedure: Yes; Correct Site: Yes; Correct Patient Position: Yes; Correct Supplies: Yes; Dried Flammable Prep: Yes; Blood Products Available: N/A;. Lidocaine 1% infiltrated to the right brachial. IV wire inserted through the IV catheter. IV catheter removed OTW. Pemberton-Michael MON catheter inserted. contrast hand injected through the catheter. 0.025 wire inserted through the catheter. Oximetry samples were obtained. Normal venous range: 60-85%. Normal arterial range: 95-100%. Pressure measurements obtained. Pemberton-Michael out. Lidocaine 1% infiltrated to the right radial. Arterial access obtained. A 5 maltese TIG catheter in over wire. contrast hand injected through the catheter. Catheter removed over the exchange wire. A TR Band was successful obtaining hemostatsis at the Right Radial artery insertion site. Lidocaine 1% infiltrated to the right groin. Arterial access obtained with micropuncture set. A 5 maltese JL4 catheter in over wire. EDP Sample taken: LV 134/-4,14; HR: 50 BPM; SpO2: 99%. Pullback taken: LV 132/-6,17; AO 125/55(82); Mean: 11mmHg, Peak to Peak: 6mmHg, SEP: 17sec/min; HR: 46 BPM; SpO2: 96%. Multiple views taken of left coronary artery. Catheter removed over the exchange wire. A 5 maltese JR4 catheter in over wire. Multiple views taken of right coronary artery. Catheter removed over the exchange wire. A Right femoral angiogram was performed to determine safe placement of closure device. A Mynx was successful obtaining hemostatsis at the Right Femoral artery insertion site. A Manual Compression was successful obtaining hemostatsis at the Right Brachial Vein insertion site. Post Procedure: Pulses reassessed and unchanged. PERRLA. Strong, equal hand assignment manager bilaterally. No VTE prophylaxis required. Medication's Wasted: Nitro = 49.8 mg. Medication's Wasted: Heparin = 1000 units. Medication's Wasted: Lidocaine 1% = 3 mL. Medication's Wasted: Other = Versed 1 mg. Total IV fluids: 75 mL. Contrast type used: Visipaque 320 mgI/mL, 500 mL bottle. Complications: None. Estimated blood loss: 5mL-10mL. Procedure completed. Vital chart was stopped. Patient transferred by bed to 1st floor. Access Site Site: Right Brachial Vein Sheath Size: 6 Fr Hemostasis Method: Manual Compression Hemostasis Success: Successful Site: Right Radial artery Sheath Size: 6 Fr Hemostasis Method: TR Band Hemostasis Success: Successful Site: Right Femoral artery Sheath Size: 6 Fr Hemostasis Method: Mynx Hemostasis Success: Successful Procedure Medications Start: 8:28 AM Stop: 8:28 AM Medication: Versed 1 mg and Fentanyl 25 mcg Amount: 1 Route: I.V. Start: 8:28 AM Stop: 8:28 AM Medication: Versed 1 mg and Fentanyl 25 mcg Amount: 1 Route: I.V. Start: 8:51 AM Stop: 8:51 AM Medication: Nitrogylcerin Amount: 200 mcg Route: I.A. Start: 9:05 AM Stop: 9:05 AM Medication: Versed 1 mg and Fentanyl 25 mcg Amount: 1 Route: I.V. I, the attending physician, have reviewed and verified all procedure medications. Yes, all medications given per verbal order History/Risk Factors Hypertension: No Dyslipidemia: No Peripheral Arterial Disease (PAD): No Myocardial Infarction (GA): No Obesity: No Renal Disease: No Tobacco Use: Former Prior Interventions PCI: No CABG: No Valve Surgery: No Report Signatures Finalized by Alyssa Chavez MD on 02/06/2021 07:13 PM
[2021-01-28] MEDS: diphenhydrAMINE 50 mg Capsule PO (06:51)
--- NOTE | 2021-01-28 07:58 | W.PM.OPSUD ---
Surgery/Procedure H&P Update DATE OF PROCEDURE: January 28, 2021 DATE H&P PERFORMED: 01/10/21 PREOP DIAGNOSIS: Unexplained shortness of breath, mitral valve stenosis bioprosthesis PLANNED PROCEDURE: Operation Date: 01/28/21 07:00 Proposed Procedures p Cardiac Catheterization(Bilateral) - Alyssa Chavez MD PATIENT REASSESSED PRIOR TO SEDATION, WITH NO CHANGE NOTED: Yes PHYSICAL EXAM: alert and oriented x 3 AIRWAY EVAL/ANESTHESIA PLAN: ASA II and Risks, benefits & alternatives of sedation and/or procedure discussed ADDITIONAL INFORMATION: All risk benefit was explained to the patient, he understand risk for contrast-induced nephropathy, , stroke, major minor bleed, urgent emergent bypass surgery, urgent emergent vascular surgery infection hematoma bruising. He would like to proceed with it
[2021-01-28 09:15] LABS: ABG PCO2 42.6 mmHg (35-45); Arterial Blood Gas Hematocrit 41.3 % (42-52); Base Excess ABG 1.2 mmol/L (-2.0-2.0); Blood Gas Allen Test Pos; Blood Gas Operator Identificat MONRO; Blood Gas Sample Site AO; Blood Gas Sample Type Arterial; HCO3 ABG 26.3 mmol/L (22-26)
[2021-01-28 09:17] LABS: ABG PCO2 45.8 mmHg (35-45); ABG PH Result 7.36 (7.35-7.45); Arterial Blood Gas Hematocrit 35.5 % (42-52); Base Excess ABG 0.1 mmol/L (-2.0-2.0); Blood Gas Allen Test Pos; Blood Gas Operator Identificat MONRO; Blood Gas Sample Site PA; Blood Gas Sample Type Arterial; HCO3 ABG 25.8 mmol/L (22-26); PO2 ABG 38.2 mmHg (80.0-100.0)
[2021-01-28 09:18] LABS: ABG PCO2 45.3 mmHg (35-45); ABG PH Result 7.37 (7.35-7.45); Arterial Blood Gas Hematocrit 41.2 % (42-52); Base Excess ABG 0.6 mmol/L (-2.0-2.0); Blood Gas Allen Test Pos; Blood Gas Operator Identificat MONRO; Blood Gas Sample Site RV; Blood Gas Sample Type Arterial; HCO3 ABG 26.3 mmol/L (22-26); PO2 ABG 35.7 mmHg (80.0-100.0)
[2021-01-28 09:20] LABS: ABG PCO2 46.5 mmHg (35-45); ABG PH Result 7.36 (7.35-7.45); Arterial Blood Gas Hematocrit > 62.0 % (42-52); Base Excess ABG -0.1 mmol/L (-2.0-2.0); Blood Gas Allen Test Pos; Blood Gas Operator Identificat MONRO; Blood Gas Sample Site RA; Blood Gas Sample Type Arterial; HCO3 ABG 26.2 mmol/L (22-26)
--- NOTE | 2021-01-28 14:30 | PC.NURSE ---
Air removed from TR band at 3ml intervals over an hour. No hematoma. Site cleaned and 2x2 drsg with opsite placed over puncture site.. Pressure drsg removed from right ACF. 2x2 drsg with opsite placed.
== END 2021-01-28 15:50 | disposition home or self-care (01) ==
LOC: CCL 06:08 → CSU 10:46
PROVIDERS: PCP Family Medicine; Visit Provider Internal Medicine Cardiovascular Disease
DX: R06.00 Dyspnea, unspecified (principal); I51.89 Other ill-defined heart diseases; Z95.4 Presence of other heart-valve replacement; I27.20 Pulmonary hypertension, unspecified
CPT/HCPCS: 36415; 82803; 93453; C1751; C1760; C1769; C1887; C1894; J1644; J2250; J3010; J3490; J7030; Q0163; Q9967

== ENCOUNTER → 2021-02-06 10:30 | Outpatient (BNVA) | payer MEDICARE, OTHER, SELFPAY | PROVIDERS: PCP Family Medicine; Visit Provider Nurse Practitioner Family | DX: I27.20 Pulmonary hypertension, unspecified (principal) | CPT/HCPCS: 80048 ==

== ENCOUNTER → 2021-02-11 11:21 | Outpatient (BNVA) | payer MEDICARE, OTHER, SELFPAY | PROVIDERS: PCP Family Medicine; Referring Provider Internal Medicine Cardiovascular Disease; Visit Provider Internal Medicine Cardiovascular Disease | DX: Z01.818 Encounter for other preprocedural examination (principal); I51.89 Other ill-defined heart diseases; Z20.822 Contact with and (suspected) exposure to COVID-19 | CPT/HCPCS: 80048; 85025; 85610; 87635 ==

== ENCOUNTER 2021-02-13 09:57 | Outpatient (CLI) | payer MEDICARE, OTHER, SELFPAY ==
--- NOTE | 2021-02-13 13:19 | PFTS_ITS ---
Date of Study:02/13/21 Date of Dictation: 02/13/2021 MECHANICS: Postbronchodilator forced vital capacity (FVC) is reduced. Postbronchodilator forced expiratory volume in one second (FEV1) is normal. FEV1/FVC is normal. There is no significant response to bronchodilators. FLOW VOLUME LOOP: Somewhat flattening of inspiratory limb suggestive of dynamic extrathoracic obstruction . LUNG VOLUMES: Total lung capacity (TLC) is mildly reduced. Residual volume (RV) is mildly reduced. DIFFUSING CAPACITY FOR CARBON MONOXIDE: Moderately reduced 52% . INTERPRETATION: The postbronchodilator spirometry is consistent with mild restriction. Lung volumes are mildly reduced. There is moderate gas transfer defect. Flow volume loop is equivocal flattening of inspiratory limb suggestive of possible dynamic extrathoracic obstruction. However clinical correlation is strongly recommended. MTDD
== END 2021-02-13 09:58 | disposition home or self-care (01) ==
LOC: RT 10:03
PROVIDERS: PCP Family Medicine; Visit Provider Internal Medicine Critical Care Medicine
DX: R06.02 Shortness of breath (principal)
CPT/HCPCS: 94060; 94726; 94729; J7611

== ENCOUNTER 2021-02-19 10:21 | Day surgery (SDC) | payer MEDICARE, OTHER, SELFPAY ==
[2021-02-15 13:22] VITALS: BMI 33.0
--- NOTE | 2021-02-19 11:09 | P.ANESASSM_ITS ---
Pre-Anesthetic Assessment Pre-Anesthetic Assessment: Height/Weight: Height 1.78 m Weight 104.326 kg Preop Diagnosis: Unexplained shortness of breath, mitral valve stenosis bioprosthesis Proposed Procedure: Operation Date: 02/19/21 11:30 Proposed Procedures p ALIA(Not Applicable) - Alyssa Chavez MD Was Beta Joyce taken within 24 hours: Yes Was Clonidine taken within 24 hours: N/A Social: Social History: No alcohol and No tobacco Exam: Pre-Anes Outpt Exam: alert, oriented x 3 and regular rate & rhythm Airway: Submandibular: WNL Cervical ROM: WNL MP: 2 Dentition: False Pulmonary: Pulmonary: COPD, KEARNS and SOB Comments: Home O2 3L CV/HEM: CV/HEM: CAD, CHF (Preserved LV fxn) and AR Comments: Pulmonary HTN, MVR Metabolic: Metabolic: Hyperlipidemia Neuropsych: Neuropsych: Syncope Anesthetic Plan: ASA status: 3 Anesthesia: MAC Risk of > 500 ml blood loss (7ml/kg in children): No PFSH Anesthesia PFSH: Medical History Acute UTI Bilateral primary osteoarthritis of knee BPH loc w urin obs/LUTS Chest pain Diastolic dysfunction Dyspnea Encounter for screening laboratory testing for COVID-19 virus Hordeolum externum (stye) NSTEMI (non-ST elevated myocardial infarction) Obstructive sleep apnea Onychomycosis of great toe DENAE on CPAP PAD (peripheral artery disease) Pulmonary HTN Pulmonary HTN Right epididymitis Shortness of breath Syncope Unstable angina Surgical History H/O mitral valve replacement with tissue graft History of repair of hiatal hernia Status post mitral valve replacement with tissue valve Family History Mother Stroke Grandfather CAD (coronary artery disease) Father Tuberculosis Social History Quit status (tobacco): has quit using tobacco Year quit tobacco: 1985 Former quit date comment: Hx of 2PPD x 6 Years Smoking risk assessment/counseling performed?: No Alcohol intake: former Year of sobriety/quit date alcohol: 1985 Counseling given: No Counseling given: No Lives independently: Yes Household members: spouse Marital status: service: Yes branch: [employer] Current occupational status: retired History of recent travel: No Current gender identity: Male Data Anesthesia Cardiac Studies: Holter Monitor 06/17/19
[2021-02-19 11:16] VITALS: BP 120/68; PULSE 50; RESP 20; TEMP 36.3; O2SAT 98
--- NOTE | 2021-02-19 11:30 | USCV_ITS ---
Reid Nieves Age: 75 Gender: M : 1945 Exam Date: 02/19/2021 12:03 Ordering Phys: Alyssa Chavez MD ([email or web address]) Technologist: BRO [place]am Location[place] [facility] [place]ication: SHORTNESS OF BREATH BP: 146 / 71 HR: 59 Rhythm: Sinus Technical Quality: MEASUREMENTS (Male / Female) Normal Values DOPPLER MV Peak Velocity 194.0 cm/s Medications Patient given IV sedation by anesthesia service, for details please refer to the anesthesia report. Complications None. Proc. Components FINDINGS Left Ventricle Normal left ventricular cavity size. Normal left ventricular systolic function. Left ventricular ejection fraction is estimated at 50 %. Right Ventricle The right ventricle is normal in size and function. Right Atrium The right atrium is normal in size. Left Atrium Moderately increased left atrial size. LA Appendage The LA appendage is normal. IA Septum The interatrial septum is normal. Mitral Valve Bioprosthetic mitral valve sitting in normal position without significant regurgitation. Mean gradient across the mitral 6.3 mmHg Aortic Valve Moderate aortic valve calcification. No aortic valve stenosis. Trace aortic valve regurgitation. Tricuspid Valve Structurally normal tricuspid valve without significant stenosis or regurgitation. Pulmonary artery systolic pressure is normal. Pulmonic Valve Structurally normal pulmonic valve without significant stenosis. There is no pulmonic regurgitation. Pericardium Normal pericardium without effusion. Aorta Normal ascending aorta dimension. CONCLUSIONS 1-Normal left ventricular cavity size. Normal left ventricular systolic function. Left ventricular ejection fraction is estimated at 50 %. 2-Bioprosthetic mitral valve sitting in normal position without significant regurgitation. Mean gradient across the mitral 6.3 mmHg. 3-Moderately increased left atrial size. 4-Moderate aortic valve calcification. No aortic valve stenosis. Trace aortic valve regurgitation. 5-There is no pericardial effusion. 6-There are no prior echocardiogram studies to compare. Alyssa Chavez MD (Electronically Signed) Final Date: 21 February 2021 19:50 S
[2021-02-19] MEDS: sodium chloride 0.9% 1,000 ML 30 ML IV (11:49)
--- NOTE | 2021-02-19 12:02 | W.PM.OPSUD ---
Surgery/Procedure H&P Update DATE OF PROCEDURE: February 19, 2021 DATE H&P PERFORMED: 02/06/21 H&P UPDATE INFORMATION: I have reviewed H&P completed within last 30 days, I have examined patient prior to procedure, No changes to prior documentation and Changes to prior documentation as noted here PREOP DIAGNOSIS: Unexplained shortness of breath, mitral valve stenosis bioprosthesis PRIMARY INDICATION FOR PROCEDURE: Unexplained shortness of breath may require further assessment of bioprosthetic mitral valve for restenosis before referring to surgery PLANNED PROCEDURE: Operation Date: 02/19/21 11:30 Proposed Procedures p ALIA(Not Applicable) - Alyssa Chavez MD ADDITIONAL INFORMATION: Patient has been explained all risk benefit and alternative for the procedure he understand risk for stroke risk of anesthesia arrhythmia pulmonary edema esophageal abrasion rupture of bleeding and vascular scenario . He would like to proceed with it.
[2021-02-19 12:25] VITALS: BP 103/63; PULSE 48; RESP 18; TEMP 36.9; O2SAT 97
--- NOTE | 2021-02-19 13:17 | ANE.PACU2 ---
Inpatient post-anesthesia follow up: Airway intact: Yes Vital signs: Temperature 98.4 F Pulse Rate 48 Respiratory Rate 18 Blood Pressure 103/63 Pulse Oximetry 97 Oxygen Delivery Me thod Nasal Cannula Oxygen Flow Rate 3 Fraction of Inspir ed Oxygen Hydration adequate: Yes Nausea and vomiting: No Pain level: 2 Mental status: Baseline
== END 2021-02-19 12:44 | disposition home or self-care (01) ==
PROVIDERS: PCP Family Medicine; Visit Provider Internal Medicine Cardiovascular Disease
PROC: (CPT 93312; principal; 2021-02-19 11:30)
DX: R06.02 Shortness of breath (principal); I05.0 Rheumatic mitral stenosis; I35.1 Nonrheumatic aortic (valve) insufficiency; I25.2 Old myocardial infarction; G47.33 Obstructive sleep apnea (adult) (pediatric); I73.9 Peripheral vascular disease, unspecified; I27.20 Pulmonary hypertension, unspecified; I20.0 Unstable angina; Z79.82 Long term (current) use of aspirin; Z95.2 Presence of prosthetic heart valve; Z87.891 Personal history of nicotine dependence
CPT/HCPCS: 93312; 93320; 93325; 96360; J2704; J7030

== ENCOUNTER → 2021-03-21 13:55 | Outpatient (BNVA) | payer MEDICARE, OTHER, SELFPAY | PROVIDERS: PCP Family Medicine; Visit Provider Nurse Practitioner Family | DX: I51.89 Other ill-defined heart diseases (principal) | CPT/HCPCS: 80048; 83880 ==

== ENCOUNTER 2021-04-26 15:48 | Observation (INO) | payer MEDICARE, OTHER, SELFPAY ==
[2021-04-26 15:55] VITALS: BP 130/77; PULSE 60; RESP 20; TEMP 36.3; O2SAT 98; BMI 34.4
--- NOTE | 2021-04-26 16:02 | XRR_ITS ---
PROCEDURE INFORMATION: Exam: XR Chest Exam date and time: 04/26/2021 4:02 PM Age: 75 years old Clinical indication: Prior surgery; Surgery type: 2 open hearts; Patient HX: History--dyspnea 6-8 months TECHNIQUE: Imaging protocol: XR of the chest. Views: 1 view. COMPARISON: CR XR chest 1V portable [id number] 08/08/2020 4:32 PM FINDINGS: Lungs: Lungs are clear bilaterally. Pleural spaces: No pleural effusion. No pneumothorax. Heart/Mediastinum: Stable mild enlargement of the cardiac silhouette. Mediastinal contours are unremarkable. Vasculature: Stable vascular calcifications in the aorta. Bones/joints: Poststernotomy changes in the chest. Degenerative changes in the spine and shoulders. Osseous findings are stable. XR/XR chest 1V portable [id number] IMPRESSION: 1. No acute cardiopulmonary process. 2. Incidental/nonacute findings are listed in the report.
[2021-04-26 16:34] LABS: Basophils % 0.1 %; Eosinophils # 0.1 10^3/uL (0.0-0.8); Eosinophils % 1.9 %; Hematocrit 42.8 % (42.0-52.0); Hemoglobin 14.2 g/dL (11.7-16.6); Lymphocytes % 29.4 %; Mean Corpuscular HGB Conc 33.2 g/dL (30.0-36.0); Mean Corpuscular Hemoglobin 31.4 pg (28.0-34.0); Mean Corpuscular Volume 94.7 fl (80-94); Mean Platelet Volume 11.5 fL (7.4-10.4); Monocytes % 14.2 %; Neutrophils # 3.73 10^3/uL (1.8-7.7); Nucleated Red Blood Cells % 0 %; Platelet Count 277 10^3/cmm (130-400); Red Blood Count 4.52 10^6/uL (4.1-5.3); Red Cell Distribution Width 12.5 % (12.1-15.1); White Blood Count 6.9 10^3/uL (4.0-10.0)
[2021-04-26 17:08] LABS: Troponin(5th) Baseline 28 ng/L (0-15)
[2021-04-26 17:11] LABS: Blood Urea Nitrogen 22 mg/dL (8-23); Calcium 10.1 mg/dL (8.5-10.5); Carbon Dioxide 24 mmol/L (22-29); Chloride 97 mmol/L (98-107); Glucose 110 mg/dL (65-115); NT Pro B Type Natriuretic Pept 141 pg/mL (0-450); Osmolality Calculated 288 mOsm/kg (285-295); Sodium 137 mmol/L (136-145)
--- NOTE | 2021-04-26 17:11 | W.ED.GENADLT ---
HPI - General Adult General: Chief complaint: Shortness of Breath/Dyspnea Stated complaint: having trouble breathing Time Seen by Provider: 04/26/21 16:01 History of Present Illness: CC: Dyspnea HPI: This is a [75] yo patient w/ hx of CHF on 3L NC at baseline, CAD s/p CABG x 2 presenting ot the ED with dyspnea and increased work of breathing x 1 w weeek in the setting of increased weight gain and lower extremity swelling. Endorses of orthopnea and increased pillow usage at night. At baseline, patient takes 3 diuretic (fuorsemide 80mg daily, spirolactaone 25mg daily, and metolazine 2.5mg daily) and is followed by Specialty [employer]ishing [employer] Person Dr. Chavez. Denies chest pain, N/V, diaphoresis, shoulder pain pain or back pain. Patient has no fever/chill, or sputum production. No GI or other complaints. Denies any pleuritic chest pain, recent surgery/immobilization/travel, or hematemesis or hx of VTE in the past. Onset: 1 week ago Duration: ongoing for the last 7 days Location: home Severity: moderate Associated symptoms: Reports dyspnea and nausea; Deny chest pain, rash, palpitations or vomiting Review of Systems Const: Denies: fever(s) or chills Eyes: Denies: change in vision ENMT: Denies: mouth pain Card: Denies: chest pain or palpitations Resp: Reports: dyspnea; Denies: non-productive cough GI: Reports: nausea and other (+abdominal distension); Denies: abdominal pain, vomiting or diarrhea : Denies: dysuria Musc: Reports: other (+mild lower extremity swelling); Denies: extremity pain Skin/Breast: Denies: rash or new lesions Neuro: Denies: weakness in extremities Psych: Reports: other (Normal mood) Sukhdev/Lymph: Denies: easy bruising PFS ED PFSH: Medical History (Updated 04/26/21 @ 19:41 by Britni Jerry MD) Acute kidney injury superimposed on CKD Acute UTI Bilateral primary osteoarthritis of knee BPH loc w urin obs/LUTS Chest pain Diastolic dysfunction Dyspnea Encounter for screening laboratory testing for COVID-19 virus Hordeolum externum (stye) NSTEMI (non-ST elevated myocardial infarction) Obstructive sleep apnea Onychomycosis of great toe DENAE on CPAP PAD (peripheral artery disease) Pulmonary HTN Pulmonary HTN Right epididymitis Shortness of breath Syncope Unstable angina Surgical History H/O mitral valve replacement with tissue graft History of repair of hiatal hernia Status post mitral valve replacement with tissue valve Family History Mother Stroke Grandfather CAD (coronary artery disease) Father Tuberculosis Social History Smoking and tobacco status: former smoker Quit status (tobacco): has quit using tobacco Year quit tobacco: 1985 Former quit date comment: Hx of 2PPD x 6 Years Smoking risk assessment/counseling performed?: No Alcohol intake: former Year of sobriety/quit date alcohol: 1985 Counseling given: No Counseling given: No Lives independently: Yes Household members: spouse Marital status: service: Yes branch: [employer] Current occupational status: retired History of recent travel: No Current gender identity: Male Physical Exam Const: COMMON NORMALS: alert HENMT: COMMON NORMALS: atraumatic HEAD & SCALP: atraumatic MOUTH: moist mucous membranes not abnormal Eye: COMMON NORMALS: EOMs intact bilaterally and conjunctivae normal CONJUNCTIVA: Yes conjunctivae normal Neck/C-Spine: COMMON NORMALS: full ROM and supple Resp: OTHER: + Crackles bilaterally, coarse breath sounds bilaterally Cardio: COMMON NORMALS: regular rate RATE: regular rate GI: COMMON NORMALS: Soft to palpation PALPATION: Yes Soft to palpation OTHER: +abdominal distension, +generalized abd TTP. NO guarding rebound, guarding, rigidity. No CVA tenderness to percussion. Neg [place]/Neg McBurney's point tenderness, no suprabupic tenderness to palpation. Extremity: COMMON NORMALS: full ROM OTHER: 1+ lower extremity edema b/l above the ankles Neuro: SENSORIUM/ORIENTATION: Yes alert MOTOR EXAM: No Abnormal motor strength present and Other motor observations present (no focal motor deficits) Psych: COMMON NORMALS: speech normal SPEECH: Yes normal speech MOOD & AFFECT: Yes euthymic mood Course Vital Signs: Vital signs: Vital Signs Temperature 97.4 F L 04/26/21 15:55 Pulse Rate 58 L 04/26/21 17:24 Respiratory Rate 20 H 04/26/21 17:24 Blood Pressure 125/73 04/26/21 17:24 Pulse Oximetry 93 04/26/21 17:24 MDM - General Adult Medical Decision Making [75]yo pt w/ hx of CHF compliant on 3 agents on 3L at baseline, CAD s/p CABG presenting to the ED with dyspnea and increased work of breathing concerning acute on chronic CHF exacerbation. Physical exam consistent signs of fluid overload including crackles bilaterally and LE swelling. Workup today: ECG, CBC, BMP, Troponin, BNP, CXR. Intervention: IV lasix after potassium check Based on history, exam and findings, presentation most consistent with acute on chronic heart failure. Low suspicion for PNA, ACS, tamponade, aortic dissection. EKG: No STEMI and no evidence of Brugada?s sign, delta wave, epsilon wave, significantly prolonged QTc, or malignant arrhythmia. Troponin and BNP similar to baseline. [6:00pm] On reassessment, patient is stable and patient is mentating without issues. On NC 3L similar to baseline. Given lasix 80mg x 1 in the ER . Will need management for volume overload. Given the current presentation, I believe the patient would benefit from inpatient admission for continued diuresis and fluid removal. I have discussed a plan with a patient who agrees with inpatient admission. CT negative for any acute findings. Cr elevated to 2.4 up from baseline of 1.2. Disposition: Admission Lab Data : 04/26/21 16:22 04/26/21 16:22 Radiology Impressions Chest X-Ray 04/26/21 16:02 IMPRESSION: 1. No acute cardiopulmonary process. 2. Incidental/nonacute findings are listed in the report. Abdomen/Pelvis CT 04/26/21 18:08 IMPRESSION: 1. Diffuse, mild wall thickening of the bladder. In the correct clinical setting, this may suggest cystitis. Recommend correlation with laboratory findings. Alternatively, this may be secondary to chronic outlet obstruction. 2. Descending colon and sigmoid colon diverticulosis. No evidence for diverticulitis. 3. Incidental/nonacute findings are listed in the report. Laboratory Results WBC 6.9 10^3/uL (4.0-10.0) 04/26/21 16:22 RBC 4.52 10^6/uL (4.1-5.3) 04/26/21 16:22 Hgb 14.2 g/dL (11.7-16.6) 04/26/21 16: Hct 42.8 % (42.0-52.0) 04/26/21 16: MCV 94.7 fl (80-94) H 04/26/21 16: MCH 31.4 pg (28.0-34.0) 04/26/21 16: MCHC 33.2 g/dL (30.0-36.0) 04/26/21: RDW 12.5 % (12.1-15.1) 04/26/21: Plt Count 277 10^3/cmm (130-400) 04/26/21 16: MPV 11.5 fL (7.4-10.4) H 04/26/21: Neut % (Auto) 54.0 % 04/26/21 16: Lymph % (Auto) 29.4 % 04/26/21: Cataño % (Auto) 14.2 % 04/26/21: Eos % (Auto) 1.9 % 04/26/21: Baso % (Auto) 0.1 % 04/26/21: Neut # (Auto) 3.73 10^3/uL (1.8-7.7) 04/26/21: Lymph # (Auto) 2.0 10^3/uL (0.8-4.8) 04/26/21: Cataño # (Auto) 1.0 10^3/uL (0.2-0.9) H 04/26/21: Eos # (Auto) 0.1 10^3/uL (0.0-0.8) 04/26/21: Baso # (Auto) 0.0 10^3/uL (0.0-0.1) 04/26/21: Nucleated RBC % (auto) 0 % 04/26/21: Nucleated RBCs # 0.0 /100WBC 04/26/21 16: Sodium 137 mmol/L (136-145) 04/26/21 16:22 Potassium 4.0 mmol/L (3.5-5.1) 04/26/21 16: Chloride 97 mmol/L (98-107) L 04/26/21 16:22 Carbon Dioxide 24 mmol/L (22-29) 04/26/21 16:22 Anion Gap 20.0 (5-19) H 04/26/21 16:22 BUN 22 mg/dL (8-23) 04/26/21 16:22 Creatinine 2.4 mg/dL (0.7-1.2) H 04/26/21 16:22 GFR Calculation Not Reportable 04/26/21 16:22 Glucose 110 mg/dL (65-115) 04/26/21 16:22 Calculated Osmolality 288 mOsm/kg (285-295) 04/26/21 16:22 Calcium 10.1 mg/dL (8.5-10.5) 04/26/21 16:22 Troponin T Baseline 28 ng/L (0-15) H 04/26/21 16:22 NT-Pro-B Natriuret Pep 141 pg/mL (0-450) 04/26/21 16:22 Imaging Data Other Imaging: Radiologist's impression: [place] [address] CT Scan Report Signed Patient: Reid Nieves Unit #: [id number] : 1945 Age/Sex: 75 / M ADM Date: 04/26/21 Loc: [facility] Room/Bed: [facility] Attending Dr: Alvin Moreno MD Ordering Provider/Ordering MD: Alvin Moreno MD Date of Service: 04/26/21 Procedure(s): CT abdomen pelvis wo con [id number] Accession Number(s): [id number] Report Number: [id number] PROCEDURE INFORMATION: Exam: CT Abdomen And Pelvis Without Contrast Exam date and time: 04/26/2021 6:08 PM Age: 75 years old Clinical indication: Bloating; Abdominal pain; Generalized; Prior surgery; Surgery date: 6+ months; Surgery type: Gb, hh; Additional info: Arun, worseing abdominal discomfort TECHNIQUE: Imaging protocol: Computed tomography of the abdomen and pelvis without contrast. Sagittal and coronal reformatted images were created and reviewed. Radiation optimization: All CT scans at this facility use at least one of these dose optimization techniques: automated exposure control; mA and/or kV adjustment per patient size (includes targeted exams where dose is matched to clinical indication); or iterative reconstruction. COMPARISON: CT abdomen wo con [id number] 07/30/2020 10:53 AM RADIATION DOSE METRICS: Total DLP (mGy-cm): 1839.81 FINDINGS: Limitations: Evaluation of solid organs and vasculature is limited without intravenous contrast. Tubes, catheters and devices: Patient has a prosthetic mitral valve. Lungs: Dependent atelectasis in the lungs bilaterally. Calcified granulomas in the right lower lobe.No pleural effusion. Heart: Stable marked enlargement of the visualized portions of the heart. Liver: The liver is unremarkable. Gallbladder and bile ducts: The gallbladder is unremarkable. No biliary ductal dilatation. Pancreas: A calcification in the head of the pancreas is stable. No pancreatic atrophy. No pancreatic ductal dilatation. Spleen: The spleen is unremarkable. Adrenal glands: The right and left adrenal glands are unremarkable. Kidneys and ureters: The right and left kidneys are unremarkable. The right and left ureters are unremarkable. Stomach and bowel: Numerous diverticula in the descending colon and sigmoid colon. No evidence for diverticulitis. The stomach is collapsed, which can limit evaluation. No focal abnormality in the stomach otherwise. Stable changes in the stomach suggesting a prior Philip fundoplication. No acute abnormality in the small bowel. Appendix: The appendix is visualized and is unremarkable. No findings to suggest acute appendicitis. Intraperitoneal space: No free intraperitoneal air. No ascites. No loculated fluid collections to suggest an abscess. Stable postsurgical changes in the epigastric region. Vasculature: Stable mild atherosclerotic calcifications in the visualized arteries. No evidence for aortic aneurysm. Lymph nodes: No lymphadenopathy. Calcified lymph nodes in the right hilum. Urinary bladder: Diffuse, mild wall thickening of the bladder. Reproductive: Unremarkable as visualized. Bones/joints: Poststernotomy changes in the chest. Bones are diffusely osteopenic. Degenerative changes in the spine and hips. Soft tissues: No acute abnormality in the extra-abdominal soft tissues. CT/CT abdomen pelvis wo con [id number] IMPRESSION: 1. Diffuse, mild wall thickening of the bladder. In the correct clinical setting, this may suggest cystitis. Recommend correlation with laboratory findings. Alternatively, this may be secondary to chronic outlet obstruction. 2. Descending colon and sigmoid colon diverticulosis. No evidence for diverticulitis. 3. Incidental/nonacute findings are listed in the report. ? 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
--- NOTE | 2021-04-26 17:23 | PC.NURSE ---
Continuous cardiac, BP, and SpO2 initiated upon pt arrival into room.
[2021-04-26 17:24] VITALS: BP 125/73; PULSE 58; RESP 20; O2SAT 93
--- NOTE | 2021-04-26 18:02 | ECG_ITS ---
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 [id number]
--- NOTE | 2021-04-26 18:08 | CTR_ITS ---
PROCEDURE INFORMATION: Exam: CT Abdomen And Pelvis Without Contrast Exam date and time: 04/26/2021 6:08 PM Age: 75 years old Clinical indication: Bloating; Abdominal pain; Generalized; Prior surgery; Surgery date: 6+ months; Surgery type: Gb, hh; Additional info: Arun, worseing abdominal discomfort TECHNIQUE: Imaging protocol: Computed tomography of the abdomen and pelvis without contrast. Sagittal and coronal reformatted images were created and reviewed. Radiation optimization: All CT scans at this facility use at least one of these dose optimization techniques: automated exposure control; mA and/or kV adjustment per patient size (includes targeted exams where dose is matched to clinical indication); or iterative reconstruction. COMPARISON: CT abdomen wo con [id number] 07/30/2020 10:53 AM RADIATION DOSE METRICS: Total DLP (mGy-cm): 1839.81 FINDINGS: Limitations: Evaluation of solid organs and vasculature is limited without intravenous contrast. Tubes, catheters and devices: Patient has a prosthetic mitral valve. Lungs: Dependent atelectasis in the lungs bilaterally. Calcified granulomas in the right lower lobe.No pleural effusion. Heart: Stable marked enlargement of the visualized portions of the heart. Liver: The liver is unremarkable. Gallbladder and bile ducts: The gallbladder is unremarkable. No biliary ductal dilatation. Pancreas: A calcification in the head of the pancreas is stable. No pancreatic atrophy. No pancreatic ductal dilatation. Spleen: The spleen is unremarkable. Adrenal glands: The right and left adrenal glands are unremarkable. Kidneys and ureters: The right and left kidneys are unremarkable. The right and left ureters are unremarkable. Stomach and bowel: Numerous diverticula in the descending colon and sigmoid colon. No evidence for diverticulitis. The stomach is collapsed, which can limit evaluation. No focal abnormality in the stomach otherwise. Stable changes in the stomach suggesting a prior Philip fundoplication. No acute abnormality in the small bowel. Appendix: The appendix is visualized and is unremarkable. No findings to suggest acute appendicitis. Intraperitoneal space: No free intraperitoneal air. No ascites. No loculated fluid collections to suggest an abscess. Stable postsurgical changes in the epigastric region. Vasculature: Stable mild atherosclerotic calcifications in the visualized arteries. No evidence for aortic aneurysm. Lymph nodes: No lymphadenopathy. Calcified lymph nodes in the right hilum. Urinary bladder: Diffuse, mild wall thickening of the bladder. Reproductive: Unremarkable as visualized. Bones/joints: Poststernotomy changes in the chest. Bones are diffusely osteopenic. Degenerative changes in the spine and hips. Soft tissues: No acute abnormality in the extra-abdominal soft tissues. CT/CT abdomen pelvis wo con [id number] IMPRESSION: 1. Diffuse, mild wall thickening of the bladder. In the correct clinical setting, this may suggest cystitis. Recommend correlation with laboratory findings. Alternatively, this may be secondary to chronic outlet obstruction. 2. Descending colon and sigmoid colon diverticulosis. No evidence for diverticulitis. 3. Incidental/nonacute findings are listed in the report.
--- NOTE | 2021-04-26 18:10 | P.HP_ITS ---
Providers/Chief Complaint Admitting Physician: Alvin Moreno MD Primary Care Provider: Markel Valero MD Chief Complaint: having trouble breathing History of Present Illness Reid Nieves is a 75 year old male with past medical history of bioprosthetic mitral valve, pulmonary hypertension on sildenafil,HFpEF , obstructive sleep apnea on CPAP peripheral artery disease, BPH , came in with chief complaint of Worsening abdominal discomfort, patient is saying that he has significant abdominal distention, as well as discomfort. He is also complaining of shortness of breath, denies any chest pain, nausea ,vomiting. In the ER he was worked up for above-mentioned complaint: Pertinent imaging studies: X-ray chest: No pulmonary vascular congestion , no pleural effusion , no infiltrates. EKG: Sinus rhythm CT abdomen pelvis without contrast: Pertinent labs: WBC 6.9 H&H 14.2 / 42.8 , PLT : 277 , serum sodium 137 serum potassium : 4 , BUN serum creatinine:22/2.4 proBNP:141 , Review of Systems General: Reports: 10 or more systems reviewed and unremarkable except in HPI and below Const: Denies: fever(s), chills, body aches, change in appetite or diaphoresis Card: Denies: palpitations Resp: Denies: wheezing or pain on inspiration GI: Denies: nausea, vomiting, diarrhea or constipation : Denies: flank pain or difficulty urinating Musc: Denies: back pain, extremity pain or extremity swelling Neuro: Denies: headache(s), difficulty walking or confusion Medications/Allergies Home Medications Medication Instructions Recorded Confirmed Last Taken Type aspirin 81 mg tablet,delayed 81 mg PO DAILY@0703/21/19 04/26/21 04/26/21 History release tramadol 50 mg tablet 50 mg PO PRN 03/21/19 04/26/21 02/16/21 History albuterol sulfate 2.5 mg INHALATION TID PRN 06/18/20 04/26/21 02/17/21 History magnesium-potassium 1 tab PO DAILY@69907/05/20 04/26/21 04/26/21 History montelukast 10 mg tablet 10 mg PO DAILY@199907/05/20 04/26/21 04/26/21 History sildenafil 25 mg tablet (Viagra) 25 mg PO PRN 07/05/20 04/26/21 3 Weeks Ago History ~01/29/21 budesonide-formoterol HFA 160 2 puff INHALATION BID@0700,199908/08/20 04/26/21 02/18/21 History mcg-4.5 mcg/actuation aerosol inhaler (Symbicort) tamsulosin 0.4 mg capsule (Flomax) 0.4 mg PO BID@0700,199908/08/20 04/26/21 04/26/21 History finasteride 5 mg tablet 5 mg PO DAILY 08/17/20 04/26/21 04/26/21 History nitroglycerin 0.4 mg sublingual 0.4 mg SUBLINGUAL Q5M PRN #25 tab 12/05/20 04/26/21 02/17/21 Rx tablet bupropion HCl 300 mg 24 hr tablet, 300 mg PO QAM 01/10/21 04/26/21 04/26/21 History extended release fluoxetine 20 mg capsule 20 mg PO DAILY 01/10/21 04/26/21 04/26/21 History furosemide 40 mg tablet 40 mg PO BID #180 tab 03/12/21 04/26/21 04/26/21 Rx isosorbide mononitrate 30 mg 30 mg PO BID #180 tab 03/12/21 04/26/21 04/26/21 Rx tablet,extended release 24 hr ondansetron HCl 4 mg tablet 4 mg PO Q8H PRN 03/12/21 04/26/21 04/26/21 History simvastatin 20 mg tablet 20 mg PO DAILY@1999 #90 tab 03/12/21 04/26/21 04/26/21 Rx spironolactone 25 mg tablet 25 mg PO DAILY #90 tab 03/12/21 04/26/21 04/26/21 Rx metoprolol tartrate 25 mg tablet 12.5 mg PO BID@0700 #90 tab 04/04/21 04/26/21 04/26/21 Rx triamcinolone acetonide 0.1 % 1 applic TOPICAL BID #30 g 04/16/21 04/26/21 Unknown Rx topical cream metolazone 2.5 mg tablet 2.5 mg PO DAILY #30 tab 04/24/21 04/26/21 04/26/21 Rx potassium chloride 20 mEq 20 meq PO BID #90 tab 04/24/21 04/26/21 04/26/21 Rx tablet,extended release cyanocobalamin (vitamin B-12) 50 50 mcg PO DAILY 04/26/21 04/26/21 04/26/21 History mcg tablet vitamin E 200 unit capsule 200 unit PO DAILY 04/26/21 04/26/21 04/26/21 History Allergies Allergy/AdvReac Type Severity Reaction Status Date / Time latex Allergy ALGY-Hives Verified 04/26/21 17:06 PFSH Acute PFSH: Medical History (Updated 04/26/21 @ 19:41 by Britni Jerry MD) Acute kidney injury superimposed on CKD Acute UTI Bilateral primary osteoarthritis of knee BPH loc w urin obs/LUTS Chest pain Diastolic dysfunction Dyspnea Encounter for screening laboratory testing for COVID-19 virus Hordeolum externum (stye) NSTEMI (non-ST elevated myocardial infarction) Obstructive sleep apnea Onychomycosis of great toe DENAE on CPAP PAD (peripheral artery disease) Pulmonary HTN Pulmonary HTN Right epididymitis Shortness of breath Syncope Unstable angina Surgical History H/O mitral valve replacement with tissue graft History of repair of hiatal hernia Status post mitral valve replacement with tissue valve Family History Mother Stroke Grandfather CAD (coronary artery disease) Father Tuberculosis Social History Smoking and tobacco status: former smoker Quit status (tobacco): has quit using tobacco Year quit tobacco: 1985 Former quit date comment: Hx of 2PPD x 6 Years Smoking risk assessment/counseling performed?: No Alcohol intake: former Year of sobriety/quit date alcohol: 1985 Counseling given: No Counseling given: No Lives independently: Yes Household members: spouse Marital status: service: Yes branch: [email or web address] Current occupational status: retired History of recent travel: No Current gender identity: Male Vitals/I&O/Wt Last Vital Signs Temp 97.4 F L 04/26/21 15:55 Pulse 58 L 04/26/21 17:24 Resp 20 H 04/26/21 17:24 BP 125/73 04/26/21 17:24 Pulse Ox 93 04/26/21 17:24 Weight last 48 hrs Weight 108.862 kg Physical Exam Const: COMMON NORMALS: patient oriented x3 HENMT: COMMON NORMALS: normocephalic, atraumatic, hearing grossly normal bilaterally and external ears normal HEAD & SCALP: normocephalic and atraumatic EXTERNAL EAR: Yes external ears normal Eye: COMMON NORMALS: no scleral icterus GENERAL EYE: appearance normal, both eyes and all related structures Chest: COMMONS NORMALS: normal inspection of the chest and normal palpation of entire chest wall CHEST: Yes Symmetrical chest wall rise Resp: COMMON NORMALS: normal respiratory effort, No retractions, No use of accessory muscles and clear to auscultation bilaterally EFFORT & INSPECTION: Yes symmetric chest movement AUSCULTATION: clear to auscultation bilaterally Cardio: COMMON NORMALS: regular rate, regular rhythm, S1 normal heart sound present, S2 normal heart sound present, No gallops present (Cardio), No murmurs present (Cardio), No rub (Cardio) and Peripheral pulses 2+ throughout RATE: regular rate RHYTHM: regular rhythm HEART SOUNDS: S1 normal heart sound present and S2 normal heart sound present PERIPHERAL PULSES: Peripheral pulses 2+ throughout GI: COMMON NORMALS: Soft to palpation, non-tender, No hepatosplenomegaly present and no masses AUSCULTATION: Yes normoactive bowel sounds PALPATION: Yes Soft to palpation and Yes No hepatosplenomegaly present RECTAL EXAM: Yes deferred OTHER: Obese and distended abdomen . Extremity: COMMON NORMALS: no clubbing, cyanosis or edema and no pedal edema Neuro: COMMON NORMALS: patient oriented x3 Data : 04/27/21 03:17 04/27/21 03:17 A&P Assessment and plan (1) Diastolic dysfunction: Status: Acute (2) H/O mitral valve replacement with tissue graft: Status: Acute (3) Pulmonary HTN: Status: Acute (4) Acute kidney injury superimposed on CKD: Status: Acute Plan Assessment: SUNNY on CKD stage III: Likely prerenal : secondary to overdiuresis: Continue to hold Lasix metolazone spironolactone Urine electrolytes: CT abdomen and pelvis: Monitor output charting Avoid nephrotoxic's HFpEF: Currently compensated: X-ray chest has not shown any pulmonary vascular congestion, proBNP is 131, Continue to monitor intake output charting Daily weight Pulmonary hypertension: Continue sildenafil DENAE: CPAP at night Other comorbid conditions PAD BPH bioprosthetic mitral valve CODE STATUS: Full code DVT prophylaxis on heparin [employer] [facility] Medical Necessity Statement*: Patient needs to be in hospital for management of SUNNY. 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
[2021-04-26 19:30] LABS: Urine Creatinine 59 mg/dL (39-259); Urine Random Sodium 85 mmol/L
[2021-04-26 20:00] VITALS: BP 137/80; PULSE 60; RESP 21; TEMP 36.5; O2SAT 99
[2021-04-26 20:01] VITALS: BMI 34.2
[2021-04-26] MEDS: atorvastatin 40 mg Tablet 20 MG PO (20:16)
[2021-04-26] MEDS: montelukast sodium 10 mg Tablet PO (20:16)
[2021-04-26] MEDS: tamsulosin 0.4 mg Capsule PO (20:16)
[2021-04-26] MEDS: heparin 5,000 unit/mL INJ 1 mL 5000 UNIT SUBCUT (20:17)
[2021-04-26 20:44] VITALS: PULSE 62; RESP 16; O2SAT 99
[2021-04-26 21:30] VITALS: PULSE 56; O2SAT 99
[2021-04-26 22:00] VITALS: PULSE 62
--- NOTE | 2021-04-26 22:02 | ECG_ITS ---
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 Measurements Intervals [place] Rate: 54 P: 66 FL: 210 QRS: 41 QRSD: 90 T: 60 QT: 494 QTc: 469 Interpretive Statements SINUS BRADYCARDIA WITH FIRST DEGREE AV BLOCK PROLONGED QT INTERVAL Compared to ECG 04/26/2021 16:34:12 First degree AV block now present Prolonged QT interval now present Sinus rhythm no longer present Electronically Signed On 04-29-2021 12:20:09 ACOUSTICAL TILE CARPENTERS SUPERVISOR by Papi Blanca M.D. [email or web address].[employer]/store/OM/[id number]
[2021-04-26 22:28] LABS: Troponin 5 6HR 25.14 ng/L (0-15); Troponin 5 6HR Delta -2.86 ng/L (0-12)
[2021-04-27] VITALS (7 sets, daily range): BP systolic 107–127; BP diastolic 68–85; PULSE 56–89; RESP 15–18; TEMP 36.6–36.8; O2SAT 95–99; BMI 34.0
[2021-04-27 05:03] LABS: Basophils % 0.3 %; Eosinophils # 0.2 10^3/uL (0.0-0.8); Eosinophils % 2.3 %; Hematocrit 40.5 % (42.0-52.0); Hemoglobin 13.4 g/dL (11.7-16.6); Lymphocytes % 30.3 %; Mean Corpuscular HGB Conc 33.1 g/dL (30.0-36.0); Mean Corpuscular Hemoglobin 30.9 pg (28.0-34.0); Mean Corpuscular Volume 93.5 fl (80-94); Mean Platelet Volume 11.8 fL (7.4-10.4); Monocytes % 15.3 %; Neutrophils # 3.33 10^3/uL (1.8-7.7); Neutrophils % 51.6 %; Nucleated Red Blood Cells % 0 %; Platelet Count 254 10^3/cmm (130-400); Red Blood Count 4.33 10^6/uL (4.1-5.3); Red Cell Distribution Width 12.5 % (12.1-15.1); White Blood Count 6.5 10^3/uL (4.0-10.0)
[2021-04-27] MEDS: buPROPion XL (24 HR) 300 mg Tablet PO (05:23)
[2021-04-27] MEDS: heparin 5,000 unit/mL INJ 1 mL 5000 UNIT SUBCUT (05:23)
[2021-04-27 05:39] LABS: Anion Gap 17.7 (5-19); Blood Urea Nitrogen 26 mg/dL (8-23); Calcium 9.8 mg/dL (8.5-10.5); Carbon Dioxide 26 mmol/L (22-29); Chloride 96 mmol/L (98-107); Glucose 87 mg/dL (65-115); Osmolality Calculated 286 mOsm/kg (285-295); Potassium 3.7 mmol/L (3.5-5.1); Sodium 136 mmol/L (136-145)
[2021-04-27] MEDS: aspirin 81 mg EC Tablet PO (06:02)
[2021-04-27] MEDS: tamsulosin 0.4 mg Capsule PO (06:02)
[2021-04-27] MEDS: finasteride 5 mg Tablet PO (09:40)
[2021-04-27] MEDS: fluoxetine 20 mg Capsule PO (09:40)
[2021-04-27] MEDS: isosorbide mononitrate ER 30 mg Tablet PO (09:40)
--- NOTE | 2021-04-27 10:48 | PM.DCS ---
Discharge Providers Date of Admission: 04/26/21 17:27 Date of Discharge: April 27, 2021 Attending Provider at Admission: Alvin Moreno MD Attending Provider at Discharge: Alvin Moreno MD Primary Care Provider: Markel Valero MD Diagnoses at Discharge Discharge Diagnosis (1) Diastolic dysfunction: Status: Acute (2) H/O mitral valve replacement with tissue graft: Status: Acute (3) Pulmonary HTN: Status: Acute (4) Acute kidney injury superimposed on CKD: Status: Acute Reason for Visit Reason for Visit: having trouble breathing Hospital Course Hospital Course 75 year old male with past medical history of bioprosthetic mitral valve, pulmonary hypertension on sildenafil,HFpEF , obstructive sleep apnea on CPAP peripheral artery disease, BPH , came in with chief complaint of Worsening abdominal discomfort, patient is saying that he has significant abdominal distention, as well as discomfort. Further work-up during the hospital stay revealed SUNNY on CKD: Likely secondary to overdiuresis, Due to recent change in his diuretic regimen as an outpatient. CT abdomen and pelvis without contrast: Revealed no intra-abdominal pathology. Lasix and metolazone has been kept on hold for 1 week, patient has been advised to follow-up with repeat BMP in 1 week and see his primary care physician regarding initiation of diuretic. At the time of discharge serum creatinine was trending down, patient was euvolemic. He is being discharged to home.He will continue to follow with his primary care physician as an outpatient. Physical Exam Const: COMMON NORMALS: patient oriented x3 HENMT: COMMON NORMALS: normocephalic, atraumatic, hearing grossly normal bilaterally and external ears normal HEAD & SCALP: normocephalic and atraumatic EXTERNAL EAR: Yes external ears normal Eye: COMMON NORMALS: no scleral icterus GENERAL EYE: appearance normal, both eyes and all related structures Chest: COMMONS NORMALS: normal inspection of the chest and normal palpation of entire chest wall CHEST: Yes Symmetrical chest wall rise Resp: COMMON NORMALS: normal respiratory effort, No retractions, No use of accessory muscles and clear to auscultation bilaterally EFFORT & INSPECTION: Yes symmetric chest movement AUSCULTATION: clear to auscultation bilaterally Cardio: COMMON NORMALS: regular rate, regular rhythm, S1 normal heart sound present, S2 normal heart sound present, No gallops present (Cardio), No murmurs present (Cardio), No rub (Cardio) and Peripheral pulses 2+ throughout RATE: regular rate RHYTHM: regular rhythm HEART SOUNDS: S1 normal heart sound present and S2 normal heart sound present PERIPHERAL PULSES: Peripheral pulses 2+ throughout GI: COMMON NORMALS: Soft to palpation, non-tender, No hepatosplenomegaly present and no masses AUSCULTATION: Yes normoactive bowel sounds PALPATION: Yes Soft to palpation and Yes No hepatosplenomegaly present RECTAL EXAM: Yes deferred OTHER: Obese and distended abdomen . Extremity: COMMON NORMALS: no clubbing, cyanosis or edema and no pedal edema Neuro: COMMON NORMALS: patient oriented x3 Discharge Data Studies Completed and Pending Completed Studies During Hospitalization Category Date Time Status CT abdomen pelvis wo con [id number] Routine Cat Scan 04/26/21 18:08 Completed XR chest 1V portable [id number] Urgent Exams 04/26/21 16:02 Completed Pending at discharge Category Date Time Status Basic Metabolic Panel AM LABS Lab 04/28/21 04:00 Ordered Basic Metabolic Panel AM LABS Lab 04/29/21 04:00 Ordered Complete Blood Count w/Auto AM LABS Lab 04/28/21 04:00 Ordered Complete Blood Count w/Auto AM LABS Lab 04/29/21 04:00 Ordered Radiology Impressions Chest X-Ray 04/26/21 16:02 IMPRESSION: 1. No acute cardiopulmonary process. 2. Incidental/nonacute findings are listed in the report. Abdomen/Pelvis CT 04/26/21 18:08 IMPRESSION: 1. Diffuse, mild wall thickening of the bladder. In the correct clinical setting, this may suggest cystitis. Recommend correlation with laboratory findings. Alternatively, this may be secondary to chronic outlet obstruction. 2. Descending colon and sigmoid colon diverticulosis. No evidence for diverticulitis. 3. Incidental/nonacute findings are listed in the report. Laboratory Results WBC 6.5 10^3/uL (4.0-10.0) 04/27/21 03:17 RBC 4.33 10^6/uL (4.1-5.3) 04/27/21 03:17 Hgb 13.4 g/dL (11.7-16.6) 04/27/21 03:17 Hct 40.5 % (42.0-52.0) L 04/27/21 03:17 MCV 93.5 fl (80-94) 04/27/21 03:17 MCH 30.9 pg (28.0-34.0) 04/27/21 03:17 MCHC 33.1 g/dL (30.0-36.0) 04/27/21 03:17 RDW 12.5 % (12.1-15.1) 04/27/21 03:17 Plt Count 254 10^3/cmm (130-400) 04/27/21 03:17 MPV 11.8 fL (7.4-10.4) H 04/27/21 03:17 Neut % (Auto) 51.6 % 04/27/21 03:17 Lymph % (Auto) 30.3 % 04/27/21 03:17 [place] % (Auto) 15.3 % 04/27/21 03:17 Eos % (Auto) 2.3 % 04/27/21 03:17 Baso % (Auto) 0.3 % 04/27/21 03:17 Neut # (Auto) 3.33 10^3/uL (1.8-7.7) 04/27/21 03:17 Lymph # (Auto) 2.0 10^3/uL (0.8-4.8) 04/27/21 03:17 [place] # (Auto) 1.0 10^3/uL (0.2-0.9) H 04/27/21 03:17 Eos # (Auto) 0.2 10^3/uL (0.0-0.8) 04/27/21 03:17 Baso # (Auto) 0.0 10^3/uL (0.0-0.1) 04/27/21 03:17 Nucleated RBC % (auto) 0 % 04/27/21 03:17 Nucleated RBCs # 0.0 /100WBC 04/27/21 03:17 Sodium 136 mmol/L (136-145) 04/27/21 03:17 Potassium 3.7 mmol/L (3.5-5.1) 04/27/21 03:17 Chloride 96 mmol/L (98-107) L 04/27/21 03:17 Carbon Dioxide 26 mmol/L (22-29) 04/27/21 03:17 Anion Gap 17.7 (5-19) 04/27/21 03:17 BUN 26 mg/dL (8-23) H 04/27/21 03:17 Creatinine 1.7 mg/dL (0.7-1.2) H 04/27/21 03:17 GFR Calculation Not Reportable 04/27/21 03:17 Glucose 87 mg/dL (65-115) 04/27/21 03:17 Calculated Osmolality 286 mOsm/kg (285-295) 04/27/21 03:17 Calcium 9.8 mg/dL (8.5-10.5) 04/27/21 03:17 Troponin T Baseline 28 ng/L (0-15) H 04/26/21 16:22 Troponin T 120 Minute 24.40 ng/L (0-15) H 04/26/21 18:16 Delta Troponin T -3.60 ABS# (0-10) L 04/26/21 18:16 Troponin T Hi Sens 6Hr 25.14 ng/L (0-15) H 04/26/21 22:03 Troponin T Hi Sens 6Hr Delta -2.86 ng/L (0-12) L 04/26/21 22:03 NT-Pro-B Natriuret Pep 141 pg/mL (0-450) 04/26/21 16:22 Ur Random Sodium 85 mmol/L 04/26/21 18:53 Urine Creatinine 59 mg/dL (39-259) 04/26/21 18:53 Vitals Last Vital Signs Temp 97.9 F 04/27/21 09:22 Pulse 66 04/27/21 09:22 Resp 15 04/27/21 09:22 BP 127/85 04/27/21 09:22 Pulse Ox 95 04/27/21 09:22 Discharge Plan Discharge Patient Disposition: Home Condition: Stable Prescriptions: Continued tramadol 50 mg tablet 50 mg PO PRN 0RF aspirin 81 mg tablet,delayed release (DR/EC) 81 mg PO DAILY@0700 0RF finasteride 5 mg tablet 5 mg PO DAILY 0RF triamcinolone acetonide 0.1 % cream 1 applic topical BID Qty: 30 2RF Rx Instructions: Apply twice daily to affected area on neck no more than 2 weeks per month ondansetron HCl 4 mg tablet 4 mg PO Q8H PRN (Reason: Nausea) 0RF isosorbide mononitrate 30 mg tablet extended release 24 hr 30 mg PO BID Qty: 180 3RF simvastatin 20 mg tablet 20 mg PO DAILY@2000 Qty: 90 3RF spironolactone 25 mg tablet 25 mg PO DAILY Qty: 90 3RF albuterol sulfate 2.5 mg /3 mL (0.083 %) solution for nebulization 2.5 mg inhalation TID PRN (Reason: Shortness Of Breath) 0RF bupropion HCl 300 mg tablet extended release 24 hr 300 mg PO QAM 0RF fluoxetine 20 mg capsule 20 mg PO DAILY 0RF nitroglycerin 0.4 mg tablet, sublingual 0.4 mg sublingual Q5M PRN (Reason: chest pain) Qty: 25 1RF Rx Instructions: do not exceed 3 doses per episode metoprolol tartrate 25 mg tablet 12.5 mg PO BID@0700 Qty: 90 0RF tamsulosin [Flomax] 0.4 mg capsule 0.4 mg PO BID@699,1999 0RF budesonide-formoterol [Symbicort] 160-4.5 mcg/actuation HFA aerosol inhaler 2 puff INHALATION BID@699,1999 0RF sildenafil [Viagra] 25 mg Tablet 25 mg PO PRN 0RF magnesium-potassium 1 tab PO DAILY@07 0RF montelukast 10 mg tablet 10 mg PO DAILY@1999 0RF cyanocobalamin (vitamin B-12) 50 mcg Tablet 50 mcg PO DAILY 0RF vitamin E 200 unit Capsule 200 unit PO DAILY 0RF Held furosemide 40 mg tablet 40 mg PO BID Qty: 180 3RF Hold Instructions: Resume on 05/04/21. metolazone 2.5 mg tablet 2.5 mg PO DAILY Qty: 30 2RF Hold Instructions: Resume on 05/04/21. Rx Instructions: take 30 minutes before morning lasix dose potassium chloride 20 mEq tablet extended release 20 meq PO BID Qty: 90 3RF Hold Instructions: Resume on 05/04/21. Discharge Orders: Discharge Order (Routine); Ordered 04/27/21 Ordered By: Alvin Moreno Other Ambulatory Orders: Basic Metabolic Panel (Routine) Timeframe: 1 Week Facility: [facility] - Location: Lab - Main Lab Ordered By: Alvin Moreno Referrals: Markel Valero MD [Primary Care Provider] - 1 week (Please call [facility] to make your follow-up appointment after discharge.) Discharge Activity: Resume usual activity Patient Instructions: Heart Failure (DC), Acute Kidney Injury (DC), Chronic Hypertension (DC), Mitral Valve Replacement (DC), CHF Stoplight, Opioid Safety Discharge Attestations Time Spent in Discharge Care*: less than 30 min Specific Discharge Activities: educating patient, educating and/or supporting family/caregiver, discussing with pcp/other providers, discussing with outpatient case manager/social workers/dc planners, documenting/other paperwork and evaluating patient/reviewing data Status at Discharge: Cognitive status at discharge: cognitively intact, Behavioral status at discharge: cooperative, Quality Metrics Clinical Quality Measures [ No reported AMI, CVA or VTE this stay] Coding Level of Care Code Acute Chg FW DC note Diagnoses Diastolic dysfunction I51.89 H/O mitral valve replacement with tissue graft Z95.4 Pulmonary HTN I27.20 Acute kidney injury superimposed on CKD N17.9; N18.9
--- NOTE | 2021-04-27 13:57 | PC.NURSE ---
DISCHARGE PAPERWORK GONE OVER WITH PT. ALL QUESTIONS ANSWERED. IV REMOVED . PT TOLERATED WELL. PT SAFELY WHEELED OUT BY THIS NURSE.
== END 2021-04-27 12:30 | disposition home or self-care (01) ==
LOC: ER 17:10 → MEDSURG 18:28
PROVIDERS: Admitting Provider Internal Medicine; Emergency Provider Emergency Medicine; PCP Family Medicine; Visit Provider Internal Medicine
DX: I51.89 Other ill-defined heart diseases (principal); Z95.4 Presence of other heart-valve replacement; I27.20 Pulmonary hypertension, unspecified; N17.9 Acute kidney failure, unspecified; G47.33 Obstructive sleep apnea (adult) (pediatric); I73.9 Peripheral vascular disease, unspecified; N40.0 Benign prostatic hyperplasia without lower urinary tract symptoms; Z79.82 Long term (current) use of aspirin; N40.1 Benign prostatic hyperplasia with lower urinary tract symptoms; N13.8 Other obstructive and reflux uropathy; I25.2 Old myocardial infarction; Z87.891 Personal history of nicotine dependence; N18.30 Chronic kidney disease, stage 3 unspecified
CPT/HCPCS: 36415; 71045; 74176; 80048; 82570; 83880; 84300; 84484; 85025; 93005; 94640; 96372; 99285; G0378; J1644

== ENCOUNTER 2021-05-06 12:51 | Observation (INO) | payer OTHER, MEDICARE, SELFPAY ==
[2021-05-06] VITALS (11 sets, daily range): BP systolic 109–155; BP diastolic 60–80; PULSE 39–99; RESP 17–20; TEMP 36.4–36.6; O2SAT 3–100; BMI 33.6
--- NOTE | 2021-05-06 13:10 | XRR_ITS ---
PROCEDURE INFORMATION: Exam: XR Chest Exam date and time: 05/06/2021 1:10 PM Age: 75 years old Clinical indication: Pain; Shortness of breath; Other: W SOB; Prior surgery; Surgery type: Open heart, gb; Patient HX: History--cp & SOB since this am; Additional info: Chest pain TECHNIQUE: Imaging protocol: XR of the chest. Views: 1 view. COMPARISON: CR XR chest 1V portable [id number] 04/26/2021 4:07 PM FINDINGS: Lungs: Low lung volumes. The lungs are otherwise clear No consolidation. Pleural spaces: Unremarkable. No pleural effusion. No pneumothorax. Heart/Mediastinum: Unremarkable. No cardiomegaly. Bones/joints: Metallic sternotomy wires are in place. XR/XR chest 1V portable [id number] IMPRESSION: 1. No acute findings. 2. Status post sternotomy
--- NOTE | 2021-05-06 13:10 | ECG_ITS ---
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 Measurements Intervals [place] Rate: 47 P: 74 [place]: 238 QRS: 35 QRSD: 96 T: 48 QT: 490 QTc: 434 Interpretive Statements SINUS BRADYCARDIA WITH FIRST DEGREE AV BLOCK Compared to ECG 05/06/2021 13:08:52 Prolonged QT interval no longer present Electronically Signed On 05-06-2021 17:06:17 LEGISLATIVE AIDE by David Benavidez M.D. [email or web address], hillcrestWysiwyg/store/OM/[id number]
--- NOTE | 2021-05-06 13:30 | W.ED.GENADLT ---
HPI - General Adult General: Chief complaint: Shortness of Breath/Dyspnea Stated complaint: Diffculty breathing, no energy, not getting better Time Seen by Provider: 05/06/21 13:28 History of Present Illness: HPI: This is a [75] yo patient w/ hx of CHF on 3L NC at baseline, CAD s/p CABG x 2 presenting to the ED with dyspnea and increased work of breathing x 9 days in the setting of increased weight gain and lower extremity swelling. Patient was only hospitalized on 04/26/2020 and discharged on 04/1919 21 and discontinue on diuretics. Patient endorses orthopnea and increased pillow usage at night. At baseline, patient takes 3 diuretic (fuorsemide 80mg daily, spirolactaone 25mg daily, and metolazine 2.5mg daily)? and is followed by [facility] Dr. Chavez.? Denies chest pain, N/V, diaphoresis, shoulder pain pain or back pain. Patient has no fever/chill, or sputum production. No GI or other complaints. Denies any pleuritic chest pain, recent surgery/immobilization/travel, or hematemesis or hx of VTE in the past. Onset: 1 week ago Duration: ongoing for the last 9 days Location: home Severity: moderate Associated symptoms: Deny chest pain, dyspnea, nausea, rash, palpitations or vomiting Review of Systems Const: Denies: fever(s) or chills Eyes: Denies: change in vision ENMT: Denies: mouth pain Card: Denies: chest pain or palpitations Resp: Denies: dyspnea or non-productive cough GI: Denies: abdominal pain, nausea, vomiting or diarrhea : Denies: dysuria Musc: Denies: extremity pain Skin/Breast: Denies: rash or new lesions Neuro: Denies: weakness in extremities Psych: Reports: other (Normal mood) Sukhdev/Lymph: Denies: easy bruising PFSH ED PFSH: Medical History Abnormal weight gain Acute kidney injury Acute kidney injury superimposed on CKD Acute UTI Bilateral primary osteoarthritis of knee BPH loc w urin obs/LUTS Chest pain CHF exacerbation Diastolic dysfunction Dyspnea Encounter for screening laboratory testing for COVID-19 virus Hordeolum externum (stye) NSTEMI (non-ST elevated myocardial infarction) Obstructive sleep apnea Onychomycosis of great toe DENAE on CPAP PAD (peripheral artery disease) Pulmonary HTN Pulmonary HTN Right epididymitis Shortness of breath Syncope Unstable angina Surgical History H/O mitral valve replacement with tissue graft History of repair of hiatal hernia Status post mitral valve replacement with tissue valve Family History Mother Stroke Grandfather CAD (coronary artery disease) Father Tuberculosis Social History Smoking and tobacco status: former smoker Quit status (tobacco): has quit using tobacco Year quit tobacco: 1985 Former quit date comment: Hx of 2PPD x 6 Years Smoking risk assessment/counseling performed?: No Alcohol intake: former Year of sobriety/quit date alcohol: 1985 Counseling given: No Counseling given: No Lives independently: Yes Household members: spouse Marital status: service: Yes branch: [employer] Current occupational status: retired History of recent travel: No Current gender identity: Male Physical Exam Const: COMMON NORMALS: alert HENMT: COMMON NORMALS: atraumatic HEAD & SCALP: atraumatic MOUTH: moist mucous membranes not abnormal Eye: COMMON NORMALS: EOMs intact bilaterally and conjunctivae normal CONJUNCTIVA: Yes conjunctivae normal Neck/C-Spine: COMMON NORMALS: full ROM and supple Resp: COMMON NORMALS: normal respiratory effort and clear to auscultation bilaterally AUSCULTATION: clear to auscultation bilaterally Cardio: COMMON NORMALS: regular rate RATE: regular rate GI: COMMON NORMALS: Soft to palpation and non-tender PALPATION: Yes Soft to palpation OTHER: +abdominal distension +generalized TTP. NO guarding rebound, guarding, rigidity. No CVA tenderness to percussion. Neg [place]/Neg McBurney's point tenderness, no suprabupic tenderness to palpation. Extremity: COMMON NORMALS: full ROM NARRATIVE EXTREMITY EXAM: +R>L lower extremity swelling Neuro: SENSORIUM/ORIENTATION: Yes alert MOTOR EXAM: No Abnormal motor strength present and Other motor observations present (no focal motor deficits) Psych: COMMON NORMALS: speech normal SPEECH: Yes normal speech MOOD & AFFECT: Yes euthymic mood Course Vital Signs: Vital signs: Vital Signs Temperature 97.9 F 05/06/21 20:00 Pulse Rate 46 L 05/06/21 20:00 Respiratory Rate 17 05/06/21 20:00 Blood Pressure 126/71 05/06/21 20:00 Pulse Oximetry 100 05/06/21 20:00 MDM - General Adult Medical Decision Making 75-year-old female with history of CHF and recently discharged from hospital presented to emergency room with worsening weight gain, abdominal distention, shortness of breath. Exam, patient +2+ pitting edema. There is right greater than left leg swelling. +Generalized abdominal distention with generalized tenderness palpation. BNP within normal limit of x-ray chest clear. Given worsening abdominal swelling, patient received 80 mg of Lasix in the ED. Patient will be admitted to hospital for volume overload, anasarca, and management of CHF. Disposition: admission Lab Data : 05/06/21 13:50 05/06/21 13:50 Radiology Impressions Chest X-Ray 05/06/21 13:10 IMPRESSION: 1. No acute findings. 2. Status post sternotomy Laboratory Results WBC 4.9 10^3/uL (4.0-10.0) 05/06/21 13:50 RBC 3.76 10^6/uL (4.1-5.3) L 05/06/21 13:50 Hgb 11.9 g/dL (11.7-16.6) 05/06/21 13:50 Hct 36.8 % (42.0-52.0) L 05/06/21 13:50 MCV 97.9 fl (80-94) H 05/06/21 13:50 MCH 31.6 pg (28.0-34.0) 05/06/21 13:50 MCHC 32.3 g/dL (30.0-36.0) 05/06/21 13:50 RDW 12.9 % (12.1-15.1) 05/06/21 13:50 Plt Count 210 10^3/cmm (130-400) 05/06/21 13:50 MPV 11.7 fL (7.4-10.4) H 05/06/21 13:50 Neut % (Auto) 48.1 % 05/06/21 13:50 Lymph % (Auto) 36.5 % 05/06/21 13:50 [place] % (Auto) 11.4 % 05/06/21 13:50 Eos % (Auto) 3.2 % 05/06/21 13:50 Baso % (Auto) 0.4 % 05/06/21 13:50 Neut # (Auto) 2.37 10^3/uL (1.8-7.7) 05/06/21 13:50 Lymph # (Auto) 1.8 10^3/uL (0.8-4.8) 05/06/21 13:50 [place] # (Auto) 0.6 10^3/uL (0.2-0.9) 05/06/21 13:50 Eos # (Auto) 0.2 10^3/uL (0.0-0.8) 05/06/21 13:50 Baso # (Auto) 0.0 10^3/uL (0.0-0.1) 05/06/21 13:50 Nucleated RBC % (auto) 0 % 05/06/21 13:50 Nucleated RBCs # 0.0 /100WBC 05/06/21 13:50 Sodium 137 mmol/L (136-145) 05/06/21 13:50 Potassium 5.1 mmol/L (3.5-5.1) 05/06/21 13:50 Chloride 104 mmol/L (98-107) 05/06/21 13:50 Carbon Dioxide 24 mmol/L (22-29) 05/06/21 13:50 Anion Gap 14.1 (5-19) 05/06/21 13:50 BUN 10 mg/dL (8-23) 05/06/21 13:50 Creatinine 1.2 mg/dL (0.7-1.2) 05/06/21 13:50 GFR Calculation Not Reportable 05/06/21 13:50 Glucose 83 mg/dL (65-115) 05/06/21 13:50 Calculated Osmolality 282 mOsm/kg (285-295) L 05/06/21 13:50 Calcium 9.3 mg/dL (8.5-10.5) 05/06/21 13:50 Total Bilirubin 0.8 mg/dL (0.15-1.2) 05/06/21 13:50 AST 24 U/L (0-40) 05/06/21 13:50 ALT 16 U/L (0-41) 05/06/21 13:50 Alkaline Phosphatase 98 IU/L (40-130) 05/06/21 13:50 Troponin T Baseline 21 ng/L (0-15) H 05/06/21 14:21 NT-Pro-B Natriuret Pep 336 pg/mL (0-450) 05/06/21 13:50 Total Protein 6.9 g/dL (6.6-8.7) 05/06/21 13:50 Albumin 4.0 g/dL (3.5-5.2) 05/06/21 13:50 Globulin 2.9 g/dL (1.3-4.6) 05/06/21 13:50 Nasal Influ A H1 2009 PCR Not detected (NOT DETECT) 05/06/21 14:50 Coronavirus 229E (PCR) Not detected (NOT DETECT) 05/06/21 14:50 Influenza A (H1) PCR Not detected (NOT DETECT) 05/06/21 14:50 Influenza A (H3) PCR Not detected (NOT DETECT) 05/06/21 14:50 Influenza Type A (PCR) Not detected (NOT DETECT) 05/06/21 14:50 Influenza Type B (PCR) Not detected (NOT DETECT) 05/06/21 14:50 SARS-CoV-2 (PCR) Not detected (NOT DETECT) 05/06/21 14:50 Imaging Data Other Imaging: Radiologist's impression: [address] [address] XRay Report Signed Patient: Reid Nieves Unit #: [id number] : 1945 Age/Sex: 75 / M ADM Date: 05/06/21 Loc: ER Room/Bed: Attending Dr: Ordering Provider/Ordering MD: Aliyah Mendoza Date of Service: 05/06/21 Procedure(s): XR chest 1V portable [id number] Accession Number(s): [id number] Report Number: [id number] PROCEDURE INFORMATION: Exam: XR Chest Exam date and time: 05/06/2021 1:10 PM Age: 75 years old Clinical indication: Pain; Shortness of breath; Other: W SOB; Prior surgery; Surgery type: Open heart, gb; Patient HX: History--cp & SOB since this am; Additional info: Chest pain TECHNIQUE: Imaging protocol: XR of the chest. Views: 1 view. COMPARISON: CR XR chest 1V portable [id number] 04/26/2021 4:07 PM FINDINGS: Lungs: Low lung volumes. The lungs are otherwise clear No consolidation. Pleural spaces: Unremarkable. No pleural effusion. No pneumothorax. Heart/Mediastinum: Unremarkable. No cardiomegaly. Bones/joints: Metallic sternotomy wires are in place. XR/XR chest 1V portable [id number] IMPRESSION: 1. No acute findings. 2. Status post sternotomy ? Dictated By: Eliezer Coombs Signed By: Eliezer Coombs Signed Date/Time: 05/06/21 1428 DD/ 1310 Discharge Plan Discharge Patient Disposition: Admitted As Inpatient Admit Provider: Paolo Stevenson Clinical Impression: Abdominal distension, Acute exacerbation of CHF (congestive heart failure), Abnormal weight gain Condition: Stable Coding Level of Care Code ED Courtesy Car Driver for Chg Fwd Exam Comprehensive
[2021-05-06 14:04] LABS: Basophils % 0.4 %; Eosinophils # 0.2 10^3/uL (0.0-0.8); Eosinophils % 3.2 %; Hematocrit 36.8 % (42.0-52.0); Hemoglobin 11.9 g/dL (11.7-16.6); Lymphocytes # 1.8 10^3/uL (0.8-4.8); Lymphocytes % 36.5 %; Mean Corpuscular HGB Conc 32.3 g/dL (30.0-36.0); Mean Corpuscular Hemoglobin 31.6 pg (28.0-34.0); Mean Corpuscular Volume 97.9 fl (80-94); Mean Platelet Volume 11.7 fL (7.4-10.4); Monocytes # 0.6 10^3/uL (0.2-0.9); Monocytes % 11.4 %; Neutrophils # 2.37 10^3/uL (1.8-7.7); Neutrophils % 48.1 %; Nucleated Red Blood Cells % 0 %; Platelet Count 210 10^3/cmm (130-400); Red Blood Count 3.76 10^6/uL (4.1-5.3); Red Cell Distribution Width 12.9 % (12.1-15.1); White Blood Count 4.9 10^3/uL (4.0-10.0)
[2021-05-06 14:27] LABS: Alanine Aminotransferase 16 U/L (0-41); Alkaline Phosphatase 98 IU/L (40-130); Blood Urea Nitrogen 10 mg/dL (8-23); Calcium 9.3 mg/dL (8.5-10.5); Carbon Dioxide 24 mmol/L (22-29); Chloride 104 mmol/L (98-107); Globulin 2.9 g/dL (1.3-4.6); Glucose 83 mg/dL (65-115); NT Pro B Type Natriuretic Pept 336 pg/mL (0-450); Osmolality Calculated 282 mOsm/kg (285-295); Sodium 137 mmol/L (136-145); Total Bilirubin 0.8 mg/dL (0.15-1.2); Total Protein 6.9 g/dL (6.6-8.7)
[2021-05-06 14:29] LABS: Anion Gap 14.1 (5-19); Aspartate Amino Transferase 24 U/L (0-40); Potassium 5.1 mmol/L (3.5-5.1)
--- NOTE | 2021-05-06 14:31 | USCV_ITS ---
Reid Nieves Age: 75 Gender: M : 1945 Exam Date: 05/06/2021 15:18 Ordering Phys: Britni Jerry MD Technologist: BERNADETTE Exam Location: [facility] [place] Indication: BLE SWELLING HISTORY: Lower extremity swelling. PROCEDURES: Venous duplex imaging was performed in bilateral lower extremities. The following venous structures were evaluated: common femoral vein, profunda vein, proximal portion of the greater saphenous vein, superficial femoral vein, and the popliteal vein. In addition, the posterior tibial and peroneal trunk were evaluated. Serial compression, augmentation maneuvers, and spectral Doppler flow evaluation were performed. FINDINGS: No evidence of DVT seen in any vessel visualized at this time. CONCLUSIONS No evidence of right lower extremity DVT. No evidence of left lower extremity DVT. Arnold Leyva MD (Electronically Signed) Final Date: 06 May 2021 15:47 S
[2021-05-06 14:47] LABS: Troponin(5th) Baseline 21 ng/L (0-15)
[2021-05-06] MEDS: FUROsemide 10 mg/mL SDV 10mL 80 MG IVP (14:47)
--- NOTE | 2021-05-06 14:55 | PC.PHAR ---
pt states he takes care of his own medications-waiting for [facility] to fax med list-pt states he takes the medications entered-pt was discharged from [facility] on 04/27/21-lasix 40mg bid and metolazone 2.5mg daily was put on hold till pt see pcp-kcl 20meq bid was put on hold also-pt states he has been taking kcl 1 tab daily-ext med history shows last filled 04/24/21 45d/s for 20meq bid-pt states he has a bottle that has one tab daily and one tab bid-pt was discharged on 04/27/21 this medication was put on hold-notes are made in the pharmacy comments
--- NOTE | 2021-05-06 15:10 | ECG_ITS ---
[facility] Test Date: 2021-05-06 Pat Name: Reid Nieves Department: Room: Gender: Male Speech Therapy Director: : 1945 Requested By: Aliyah Mendoza Order Number: [id number] Aba MD: David Benavidez M.D. Measurements Intervals [place] Rate: 47 P: 66 OR: 241 QRS: 31 QRSD: 93 T: 40 QT: 499 QTc: 442 Interpretive Statements SINUS BRADYCARDIA WITH FIRST DEGREE AV BLOCK PROLONGED QT INTERVAL Compared to ECG 04/27/2021 00:27:10 No significant changes Electronically Signed On 05-06-2021 17:24:53 TREE SPECIALIST by David Benavidez M.D. [email or web address] [email or web address] hospitalSiamab Therapeutics/store/Om/[id number]
[2021-05-06 16:35] LABS: Troponin 5 2HR 22.48 ng/L (0-15)
[2021-05-06 16:44] LABS: Troponin 5 2HR Delta 1.48 ABS# (0-10)
[2021-05-06 16:49] LABS: Adenovirus Not Detected (NOT DETECT); Chlamydia Pneumoniae Not Detected (NOT DETECT); Coronavirus 229E,HKU1,NL63,OC4 Not Detected (NOT DETECT); Human Metapneumovirus Not Detected (NOT DETECT); Human Rhinovirus/Enterovirus Not Detected (NOT DETECT); Influenza A Not Detected (NOT DETECT); Influenza A H1 Not Detected (NOT DETECT); Influenza A H1-2009 Not Detected (NOT DETECT); Influenza A H3 Not Detected (NOT DETECT); Influenza B Not Detected (NOT DETECT); Mycoplasma Pneumoniae Not Detected (NOT DETECT); Parainfluenza Virus Type 1 Not Detected (NOT DETECT); Parainfluenza Virus Type 2 Not Detected (NOT DETECT); Parainfluenza Virus Type 3 Not Detected (NOT DETECT); Parainfluenza Virus Type 4 Not Detected (NOT DETECT); Respiratory Syncytial Virus A Not Detected (NOT DETECT); Respiratory Syncytial Virus B Not Detected (NOT DETECT); SARS-COV-2 Not Detected (NOT DETECT)
[2021-05-06 17:19] LABS: Influenza A Not Detected (NOT DETECT); Influenza A H1 Not Detected (NOT DETECT); Influenza A H1-2009 Not Detected (NOT DETECT); Influenza A H3 Not Detected (NOT DETECT); Influenza B Not Detected (NOT DETECT); Results from Genmark
--- NOTE | 2021-05-06 19:10 | ECG_ITS ---
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 Measurements Intervals [place] Rate: 50 P: 23 [place]: 212 QRS: 26 QRSD: 93 T: 54 QT: 474 QTc: 433 Interpretive Statements SINUS BRADYCARDIA WITH FIRST DEGREE AV BLOCK Compared to ECG 05/06/2021 15:03:01 No significant changes Electronically Signed On 05-08-2021 5:52:12 LABEL FUSER TENDER by Starr Swanson M.D. [email or web address] [email or web address] [id number]"
[2021-05-06 20:31] LABS: Troponin 5 6HR 24.63 ng/L (0-15)
--- NOTE | 2021-05-06 20:45 | P.HP_ITS ---
Providers/Chief Complaint Admitting Physician: Paolo Stevenson Primary Care Provider: Markel Valero MD Chief Complaint: Diffculty breathing, no energy, not getting better History of Present Illness Pleasant 75-year-old gentleman with history of diastolic congestive heart fail ure chronically on 3L O2, bioprosthetic mitral valve, DENAE on CPAP, PAD, BPH with low normal ejection fraction, recently after intensive diuresis admitted for assessment management of abdominal distention, found to be in SUNNY on CKD, thought to be likely secondary to overdiuresis. Abdominal evaluated with noncontrast CT with finding of diffuse mild wall thickening of the bladder with possible cystitis, possible chronic outlet obstruction, descending colon and sigmoid diverticulosis, no diverticulitis, no ascites. No free air. His diuretics including Lasix, metolazone were kept on hold for 1 week. On follow- up with his primary provider he reports his temperature was measured 99 Fahrenheit whereas he normally runs around 96 Fahrenheit. He reports has not felt much different. Apart from some persistence of abdominal discomfort, distention, although denies nausea vomiting, somewhat softer stools than usual. No headache. Minimal cough. Reports right lower extremity has had more swelling than the left, although this is chronic. In ER due to concern for CHF, fluid overload he receives a dose of Lasix 80 mg. Review of Systems Const: Denies: fever(s), chills, body aches or malaise Eyes: Denies: change in vision or eye redness ENMT: Denies: throat pain, oral sores or ear or mastoid pain Card: Reports: edema; Denies: chest pain or pre-syncope Resp: Denies: dyspnea, productive cough, change in phlegm color or hemoptysis GI: Reports: abdominal pain (discomfort), diarrhea and bloating; Denies: nausea, vomiting, constipation, hematochezia or melena : Denies: flank pain, difficulty urinating, urinary frequency or hematuria Musc: Denies: back pain, joint swelling or joint redness Skin/Breast: Denies: rash, sores or new lesions Neuro: Denies: headache(s), numbness in extremities, weakness in extremities, dizziness, confusion or seizure-like activity Endo: Denies: polyuria or polydipsia Sukhdev/Lymph: Denies: easy bleeding or purpura All/Imm: Denies: urticaria, throat swelling or tongue swelling Medications/Allergies Home Medications Medication Instructions Recorded Confirmed Last Taken Type aspirin 81 mg tablet,delayed 81 mg PO DAILY@0700 03/21/19 05/06/21 05/06/21 History release tramadol 50 mg tablet 50 mg PO Q6H PRN 03/21/19 05/06/21 02/16/21 History albuterol sulfate 2.5 mg INHALATION TID PRN 06/18/20 05/06/21 02/17/21 History montelukast 10 mg tablet 10 mg PO DAILY@199907/05/20 05/06/21 05/05/21 History sildenafil 25 mg tablet (Viagra) 25 mg PO . DIRECTED PRN 07/05/20 05/06/21 3 Weeks Ago History ~01/29/21 budesonide-formoterol HFA 160 2 puff INHALATION BID@0700,199908/08/20 05/06/21 02/18/21 History mcg-4.5 mcg/actuation aerosol inhaler (Symbicort) tamsulosin 0.4 mg capsule (Flomax) 0.4 mg PO BID@0700,199908/08/20 05/06/21 05/06/21 08:00 History finasteride 5 mg tablet 5 mg PO QAM 08/17/20 05/06/21 05/06/21 History nitroglycerin 0.4 mg sublingual 0.4 mg SUBLINGUAL Q5M PRN #25 tab 12/05/20 05/06/21 02/17/21 Rx tablet bupropion HCl 300 mg 24 hr tablet, 300 mg PO QAM 01/10/21 05/06/21 05/06/21 History extended release furosemide 40 mg tablet 40 mg PO BID #180 tab 03/12/21 05/06/21 04/26/21 Rx isosorbide mononitrate 30 mg 30 mg PO BID #180 tab 03/12/21 05/06/21 05/06/21 Rx tablet,extended release 24 hr ondansetron HCl 4 mg tablet 4 mg PO Q8H PRN 03/12/21 05/06/21 04/26/21 History simvastatin 20 mg tablet 20 mg PO DAILY@1999 #90 tab 03/12/21 05/06/21 05/05/21 Rx triamcinolone acetonide 0.1 % 1 applic TOPICAL BID #30 g 04/16/21 05/06/21 Unknown Rx topical cream metolazone 2.5 mg tablet 2.5 mg PO DAILY #30 tab 04/24/21 05/06/21 04/26/21 Rx cyanocobalamin (vitamin B-12) 50 50 mcg PO DAILY 04/26/21 05/06/21 04/26/21 History mcg tablet albuterol sulfate 90 mcg/actuation 2 puff INHALATION QID PRN 05/06/21 05/06/21 Unknown History aerosol inhaler (ProAir HFA) cholecalciferol (vitamin D3) 25 3,000 unit PO DAILY 05/06/21 05/06/21 Unknown History mcg (1,000 unit) capsule (Vitamin D3) magnesium oxide 400 mg PO DAILY 05/06/21 05/06/21 Unknown History metoprolol tartrate 25 mg tablet 12.5 mg PO BID 05/06/21 05/06/21 05/06/21 08:00 History omeprazole 20 mg capsule,delayed 20 mg PO DAILY 05/06/21 05/06/21 Unknown Histo ry release potassium chloride 20 mEq 20 meq PO DAILY 05/06/21 05/06/21 05/06/21 History tablet,extended release see pharmacy comment spironolactone 25 mg tablet 25 mg PO QAM 05/06/21 05/06/21 05/06/21 History Allergies Allergy/AdvReac Type Severity Reaction Status Date / Time latex Allergy ALGY-Hives Verified 05/06/21 14:55 PFSH Acute PFSH: Medical History Abnormal weight gain Acute kidney injury Acute kidney injury superimposed on CKD Acute UTI Bilateral primary osteoarthritis of knee BPH loc w urin obs/LUTS Chest pain CHF exacerbation Diastolic dysfunction Dyspnea Encounter for screening laboratory testing for COVID-19 virus Hordeolum externum (stye) NSTEMI (non-ST elevated myocardial infarction) Obstructive sleep apnea Onychomycosis of great toe DENAE on CPAP PAD (peripheral artery disease) Pulmonary HTN Pulmonary HTN Right epididymitis Shortness of breath Syncope Unstable angina Surgical History H/O mitral valve replacement with tissue graft History of repair of hiatal hernia Status post mitral valve replacement with tissue valve Family History Mother Stroke Grandfather CAD (coronary artery disease) Father Tuberculosis Social History Smoking and tobacco status: former smoker Quit status (tobacco): has quit using tobacco Year quit tobacco: 1985 Former quit date comment: Hx of 2PPD x 6 Years Smoking risk assessment/counseling performed?: No Alcohol intake: former Year of sobriety/quit date alcohol: 1985 Counseling given: No Counseling given: No Lives independently: Yes Household members: spouse Marital status: service: Yes branch: [employer] Current occupational status: retired History of recent travel: No Current gender identity: Male Vitals/I&O/Wt Last Vital Signs Temp 97.5 F L 05/06/21 13:00 Pulse 64 05/06/21 17:34 Resp 18 05/06/21 17:34 BP 127/70 05/06/21 17:34 Pulse Ox 98 05/06/21 17:34 05/06/21 05/06/21 05/06/21 06:59 14:59 22:59 Output Total 1999 Balance -1999 / -1999 Weight last 48 hrs Weight 109.316 kg Physical Exam Const: COMMON NORMALS: no acute distress and patient oriented x3 HENMT: COMMON NORMALS: oropharynx normal Resp: COMMON NORMALS: normal respiratory effort and clear to auscultation bilaterally AUSCULTATION: clear to auscultation bilaterally Cardio: COMMON NORMALS: no JVD, regular rhythm, S1 normal heart sound present, S2 normal heart sound present and No murmurs present (Cardio) RHYTHM: regular rhythm HEART SOUNDS: S1 normal heart sound present and S2 normal heart sound present GI: COMMON NORMALS: Normal to inspection, nondistended, normoactive bowel sounds present, Soft to palpation and non-tender PALPATION: Yes Soft to palpation Extremity: COMMON NORMALS: no joint enlargement GENERAL: Yes edema (2+) Neuro: COMMON NORMALS: patient oriented x3 and moves all extremities Skin: COMMON NORMALS: no rashes or lesions noted GENERAL SKIN EXAM: no rashes or lesions noted Data : 05/06/21 13:50 05/06/21 13:50 A&P Assessment and plan (1) Fever: Reports was sent from primary provider's office due to fever of 99 Fahrenheit, usually temperature is 96 Fahrenheit. Does not appear to have a clear source of infection. Mild if any cough. Viral PCR including COVID-19, influenza negative. No suggestion of pneumonia on chest x-ray. Some GI symptoms with bloating, abdominal discomfort, diarrhea. Requested stool studies due to persistent symptoms, abdominal discomfort/pain. Right lower extremity with worse swelling, venous duplex obtained in ER negative for DVT. Status: Acute (2) Abdominal distension: Underwent diagnostic assessment during last admission with CT abdomen pelvis whi ch did not reveal cause of abdominal distention, discomfort. Symptoms persist. Especially with some diarrhea. Requesting stool studies including culture, ova and parasites, C. difficile. Follow-up. Status: Acute (3) Acute exacerbation of CHF (congestive heart failure): Lower extremity edema recently all diuretics were held. Received 80 mg IV Lasix. With recent acute kidney injury. Reassess volume status. Denies chest pain pressure. Troponin trend without suggestion of ischemia. 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
[2021-05-06 20:49] LABS: Troponin 5 6HR Delta 3.63 ng/L (0-12)
[2021-05-06] MEDS: enoxaparin 40 mg/0.4 mL Syringe SUBCUT (22:52)
[2021-05-07] VITALS (7 sets, daily range): BP systolic 103–115; BP diastolic 61–72; PULSE 41–65; RESP 16–18; TEMP 36.7–36.8; O2SAT 96–98
[2021-05-07 05:17] LABS: Basophils % 0.4 %; Eosinophils # 0.2 10^3/uL (0.0-0.8); Eosinophils % 2.9 %; Hematocrit 35.8 % (42.0-52.0); Hemoglobin 11.6 g/dL (11.7-16.6); Lymphocytes # 1.8 10^3/uL (0.8-4.8); Lymphocytes % 34.8 %; Mean Corpuscular HGB Conc 32.4 g/dL (30.0-36.0); Mean Corpuscular Hemoglobin 31.2 pg (28.0-34.0); Mean Corpuscular Volume 96.2 fl (80-94); Mean Platelet Volume 12.2 fL (7.4-10.4); Monocytes # 0.6 10^3/uL (0.2-0.9); Monocytes % 12.3 %; Neutrophils # 2.52 10^3/uL (1.8-7.7); Neutrophils % 49.4 %; Nucleated Red Blood Cells % 0 %; Platelet Count 209 10^3/cmm (130-400); Red Blood Count 3.72 10^6/uL (4.1-5.3); Red Cell Distribution Width 12.8 % (12.1-15.1); White Blood Count 5.1 10^3/uL (4.0-10.0)
[2021-05-07] MEDS: buPROPion XL (24 HR) 300 mg Tablet PO (05:17)
[2021-05-07] MEDS: tamsulosin 0.4 mg Capsule PO (05:17)
[2021-05-07] MEDS: finasteride 5 mg Tablet PO (05:17)
[2021-05-07] MEDS: spironolactone 25 mg Tablet PO (05:17)
[2021-05-07] MEDS: aspirin 81 mg EC Tablet PO (05:17)
[2021-05-07 05:35] LABS: Alanine Aminotransferase 14 U/L (0-41); Albumin Level 3.9 g/dL (3.5-5.2); Alkaline Phosphatase 94 IU/L (40-130); Anion Gap 14.1 (5-19); Aspartate Amino Transferase 19 U/L (0-40); Blood Urea Nitrogen 15 mg/dL (8-23); Calcium 8.6 mg/dL (8.5-10.5); Carbon Dioxide 25 mmol/L (22-29); Chloride 105 mmol/L (98-107); Globulin 2.6 g/dL (1.3-4.6); Glucose 94 mg/dL (65-115); Osmolality Calculated 291 mOsm/kg (285-295); Potassium 4.1 mmol/L (3.5-5.1); Sodium 140 mmol/L (136-145); Total Bilirubin 0.9 mg/dL (0.15-1.2); Total Protein 6.5 g/dL (6.6-8.7)
[2021-05-07 07:35] LABS: Add Urine Microscopic? NO; Charge for UA Resulting for Rev
[2021-05-07 08:03] LABS: Bilirubin Urine Neg (Negative); Blood Urine Neg (Negative); Glucose Urine UA Norm (Normal); Ketones Urine Negative (Negative); Leukocyte Esterase Urine Negative (Negative); Nitrate Urine Negative (Negative); Protein Urine Neg (Negative); Urine Appearance Clear (CLEAR); Urine Color Yellow (Yellow); Urobilinogen Urine Norm (Negative); pH Urine 5 (5-7)
[2021-05-07] MEDS: FUROsemide 40 mg Tablet PO (08:30)
[2021-05-07] MEDS: magnesium oxide 400 mg tablet PO (08:30)
[2021-05-07] MEDS: pantoprazole DR 40 mg Tablet PO (08:30)
--- NOTE | 2021-05-07 13:53 | PM.DCS ---
Discharge Providers Date of Admission: 05/06/21 15:33 Date of Discharge: May 07, 2021 Attending Provider at Admission: Paolo Stevenson Attending Provider at Discharge: Paolo Stevenson Primary Care Provider: Markel Valero MD Diagnoses at Discharge Discharge Diagnosis (1) Fever: Status: Acute (2) Abdominal distension: Status: Acute (3) Acute exacerbation of CHF (congestive heart failure): Status: Acute (4) Abnormal weight gain: Status: Acute Reason for Visit Reason for Visit: Diffculty breathing, no energy, not getting better Hospital Course Hospital Course Pleasant 75-year-old gentleman with history of diastolic congestive heart failure, with decompensation around March time with escalation of diuretic with Lasix increased to twice daily, subsequently again thought to be in decompensated failure in early April in addition to Lasix and spironolactone also started on metolazone. Subsequently with admission 04/26-04/27 with acute kidney injury at which time all diuretics were held for a week, returned the hospital directed from primary provider's clinic per ER due to weight gain and CHF exacerbation, where as he states was directed to come to the hospital due to temperature of 99 Fahrenheit. No obvious source of infection could be identified at this time and he remained afebrile while under observation in the hospital. PCR COVID-19 and influenza were negative. He received IV diuretics at presentation with good urine output, creatinine is better comparatively to recent acute kidney injury, at 1.2. He is resumed on diuretics currently with 40 mg of Lasix twice daily which he appears to have tolerated based on recheck of renal function after that dose was changed. Continues on spironolactone. His metolazone remains stopped. Abdominal distention was investigated with CT scan during last admission. He did not have intra-abdominal ascites. He currently has 2+ lower extremity edema, although NT proBNP is only 336. He did report some loose stools recently, however, had not in the hospital and so ordered stool studies could not be collected. As he is otherwise doing well today he is discharged and will be following up with his primary doctor and cardiology clinic for reassessment of volume status. Please keep a close eye on renal function with adjustment of diuretics. Metoprolol is stopped due to noted episodes of bradycardia down into 40s, occasionally 30s, although has not been symptomatic in the hospital. With discontinuation of beta-wiley bradycardia should improve. He is asked to monitor his heart rates. However, it does not improve or develop symptoms consider additional cardiac monitoring. He is asked not to take Viagra given he is on nitrates. Please visit with him regarding concerns of dangerous interaction, consideration of ED therapy in setting of nitrate use. He is asked to travel nature lactose from diet to see if his abdominal distention symptoms and loose stools may be related to lactose intolerance. Physical Exam Const: COMMON NORMALS: no acute distress and patient oriented x3 HENMT: COMMON NORMALS: oropharynx normal Neck/C-Spine: COMMON NORMALS: no JVD Resp: COMMON NORMALS: normal respiratory effort and clear to auscultation bilaterally AUSCULTATION: clear to auscultation bilaterally Cardio: COMMON NORMALS: no JVD, regular rhythm, S1 normal heart sound present, S2 normal heart sound present and No murmurs present (Cardio) RHYTHM: regular rhythm HEART SOUNDS: S1 normal heart sound present and S2 normal heart sound present GI: COMMON NORMALS: Normal to inspection, nondistended, normoactive bowel sounds present, Soft to palpation and non-tender INSPECTION: Yes abdominal distension (mild) PALPATION: Yes Soft to palpation Extremity: COMMON NORMALS: no joint enlargement GENERAL: Yes edema (1-2+) Neuro: COMMON NORMALS: patient oriented x3 and moves all extremities Skin: COMMON NORMALS: no rashes or lesions noted GENERAL SKIN EXAM: no rashes or lesions noted Discharge Data Studies Completed and Pending Completed Studies During Hospitalization Category Date Time Status XR chest 1V portable [id number] Urgent Exams 05/06/21 13:10 Completed US venous duplex lower extremity bilat [CV venous Ultrasound 05/06/21 14:31 [place] [id number]] Urgent Pending at discharge Category Date Time Status C DIFF [Clostridioides Difficile PCR] Routine Lab 05/06/21 20:47 Uncollected Complete Blood Count w/Auto AM LABS Lab 05/08/21 04:00 Ordered Complete Blood Count w/Auto AM LABS Lab 05/09/21 04:00 Ordered Comprehensive Metabolic Panel AM LABS Lab 05/08/21 04:00 Ordered Comprehensive Metabolic Panel AM LABS Lab 05/09/21 04:00 Ordered OVA and Parasites, Conc and PE Routine Lab 05/06/21 20:47 Uncollected Stool Culture, Bacterial [Enteric Bacterial Panel by Lab 05/06/21 20:47 Uncollected PCR] Routine Radiology Impressions Chest X-Ray 05/06/21 13:10 IMPRESSION: 1. No acute findings. 2. Status post sternotomy Laboratory Results WBC 5.1 10^3/uL (4.0-10.0) 05/07/21 04:04 RBC 3.72 10^6/uL (4.1-5.3) L 05/07/21 04:04 Hgb 11.6 g/dL (11.7-16.6) L 05/07/21 04:04 Hct 35.8 % (42.0-52.0) L 05/07/21 04:04 MCV 96.2 fl (80-94) H 05/07/21 04:04 MCH 31.2 pg (28.0-34.0) 05/07/21 04:04 MCHC 32.4 g/dL (30.0-36.0) 05/07/21 04:04 RDW 12.8 % (12.1-15.1) 05/07/21 04:04 Plt Count 209 10^3/cmm (130-400) 05/07/21 04:04 MPV 12.2 fL (7.4-10.4) H 05/07/21 04:04 Neut % (Auto) 49.4 % 05/07/21 04:04 Lymph % (Auto) 34.8 % 05/07/21 04:04 [place] % (Auto) 12.3 % 05/07/21 04:04 Eos % (Auto) 2.9 % 05/07/21 04:04 Baso % (Auto) 0.4 % 05/07/21 04:04 Neut # (Auto) 2.52 10^3/uL (1.8-7.7) 05/07/21 04:04 Lymph # (Auto) 1.8 10^3/uL (0.8-4.8) 05/07/21 04:04 [place] # (Auto) 0.6 10^3/uL (0.2-0.9) 05/07/21 04:04 Eos # (Auto) 0.2 10^3/uL (0.0-0.8) 05/07/21 04:04 Baso # (Auto) 0.0 10^3/uL (0.0-0.1) 05/07/21 04:04 Nucleated RBC % (auto) 0 % 05/07/21 04:04 Nucleated RBCs # 0.0 /100WBC 05/07/21 04:04 Sodium 140 mmol/L (136-145) 05/07/21 04:04 Potassium 4.1 mmol/L (3.5-5.1) 05/07/21 04:04 Chloride 105 mmol/L (98-107) 05/07/21 04:04 Carbon Dioxide 25 mmol/L (22-29) 05/07/21 04:04 Anion Gap 14.1 (5-19) 05/07/21 04:04 BUN 15 mg/dL (8-23) 05/07/21 04:04 Creatinine 1.2 mg/dL (0.7-1.2) 05/07/21 04:04 GFR Calculation Not Reportable 05/07/21 04:04 Glucose 94 mg/dL (65-115) 05/07/21 04:04 Calculated Osmolality 291 mOsm/kg (285-295) 05/07/21 04:04 Calcium 8.6 mg/dL (8.5-10.5) 05/07/21 04:04 Total Bilirubin 0.9 mg/dL (0.15-1.2) 05/07/21 04:04 AST 19 U/L (0-40) 05/07/21 04:04 ALT 14 U/L (0-41) 05/07/21 04:04 Alkaline Phosphatase 94 IU/L (40-130) 05/07/21 04:04 Troponin T Baseline 21 ng/L (0-15) H 05/06/21 14:21 Troponin T 120 Minute 22.48 ng/L (0-15) H 05/06/21 16:08 Delta Troponin T 1.48 ABS# (0-10) 05/06/21 16:08 Troponin T Hi Sens 6Hr 24.63 ng/L (0-15) H 05/06/21 19:50 Troponin T Hi Sens 6Hr Delta 3.63 ng/L (0-12) 05/06/21 19:50 NT-Pro-B Natriuret Pep 336 pg/mL (0-450) 05/06/21 13:50 Total Protein 6.5 g/dL (6.6-8.7) L 05/07/21 04:04 Albumin 3.9 g/dL (3.5-5.2) 05/07/21 04:04 Globulin 2.6 g/dL (1.3-4.6) 05/07/21 04:04 Urine Color Yellow (Yellow) 05/06/21 08:22 Urine Appearance Clear (CLEAR) 05/06/21 08:22 Urine pH 5 (5-7) 05/06/21 08:22 Ur Specific [place] 1.020 (1.005-1.030) 05/06/21 08:22 Urine Protein Neg (Negative) 05/06/21 08:22 Urine Glucose (UA) Norm (Normal) 05/06/21 08:22 Urine Ketones Negative (Negative) 05/06/21 08:22 Urine Blood Neg (Negative) 05/06/21 08:22 Urine Nitrate Negative (Negative) 05/06/21 08:22 Urine Bilirubin Neg (Negative) 05/06/21 08:22 Urine Urobilinogen Norm mg/dL (Negative) 05/06/21 08:22 Ur Leukocyte Esterase Negative (Negative) 05/06/21 08:22 Nasal Influ A H1 2009 PCR Not detected (NOT DETECT) 05/06/21 14:50 Coronavirus 229E (PCR) Not detected (NOT DETECT) 05/06/21 14:50 Influenza A (H1) PCR Not detected (NOT DETECT) 05/06/21 14:50 Influenza A (H3) PCR Not detected (NOT DETECT) 05/06/21 14:50 Influenza Type A (PCR) Not detected (NOT DETECT) 05/06/21 14:50 Influenza Type B (PCR) Not detected (NOT DETECT) 05/06/21 14:50 SARS-CoV-2 (PCR) Not detected (NOT DETECT) 05/06/21 14:50 Vitals Last Vital Signs Temp 98.0 F 05/07/21 11:14 Pulse 41 L 05/07/21 11:14 Resp 18 05/07/21 11:14 BP 104/67 05/07/21 11:14 Pulse Ox 98 05/07/21 11:14 Discharge Plan Discharge Patient Disposition: Home Condition: Stable Prescriptions: Continued tramadol 50 mg tablet 50 mg PO Q6H PRN (Reason: Pain) 0RF aspirin 81 mg tablet,delayed release (DR/EC) 81 mg PO DAILY@0700 0RF finasteride 5 mg tablet 5 mg PO QAM 0RF triamcinolone acetonide 0.1 % cream 1 applic topical BID Qty: 30 2RF Rx Instructions: Apply twice daily to affected area on neck no more than 2 weeks per month ondansetron HCl 4 mg tablet 4 mg PO Q8H PRN (Reason: Nausea) 0RF furosemide 40 mg tablet 40 mg PO BID Qty: 180 3RF Hold Instructions: Resume on 05/04/21. isosorbide mononitrate 30 mg tablet extended release 24 hr 30 mg PO BID Qty: 180 3RF simvastatin 20 mg tablet 20 mg PO DAILY@1999 Qty: 90 3RF albuterol sulfate 2.5 mg /3 mL (0.083 %) solution for nebulization 2.5 mg inhalation TID PRN (Reason: Shortness Of Breath) 0RF bupropion HCl 300 mg tablet extended release 24 hr 300 mg PO QAM 0RF nitroglycerin 0.4 mg tablet, sublingual 0.4 mg sublingual Q5M PRN (Reason: chest pain) Qty: 25 1RF Rx Instructions: do not exceed 3 doses per episode tamsulosin [Flomax] 0.4 mg capsule 0.4 mg PO BID@699,1999 0RF budesonide-formoterol [Symbicort] 160-4.5 mcg/actuation HFA aerosol inhaler 2 puff INHALATION BID@699,1999 0RF montelukast 10 mg tablet 10 mg PO DAILY@1999 0RF cyanocobalamin (vitamin B-12) 50 mcg Tablet 50 mcg PO DAILY 0RF Prilosec 20 mg Capsule,Delayed Release(Dr/Ec) 20 mg PO DAILY 0RF ProAir HFA 90 mcg/actuation Hfa Aerosol Inhaler 2 puff INHALATION QID PRN (Reason: Shortness Of Breath) 0RF Vitamin D3 25 mcg (1,000 unit) Capsule 3,000 unit PO DAILY 0RF magnesium oxide 400 mg magnesium Tablet 400 mg PO DAILY 0RF spironolactone 25 mg tablet 25 mg PO QAM 0RF potassium chloride 20 mEq tablet extended release 20 meq PO DAILY 0RF Discontinued metolazone 2.5 mg tablet 2.5 mg PO DAILY Qty: 30 2RF Hold Instructions: Resume on 05/04/21. Rx Instructions: take 30 minutes before morning lasix dose sildenafil [Viagra] 25 mg Tablet 25 mg PO . DIRECTED PRN (Reason: Erectile Dysfunction) 0RF metoprolol tartrate 25 mg tablet 12.5 mg PO BID 0RF Discharge Orders: Discharge Order (Routine); Ordered 05/07/21 Ordered By: Paolo Stevenson Referrals: Lanie Benavidez FNP [Nurse Practitioner] - 1 week Markel Valero MD [Primary Care Provider] - 05/16/21 10:50 am Discharge Diet: As Directed and Cardiac Discharge Activity: Increase activity as tolerated, Oxygen as instructed and Cpap/Bipap as instructed Patient Instructions: Sildenafil (By mouth), Heart Failure (GEN), Bradycardia (GEN) Activity Restrictions/Additional Instructions: Please resume Lasix and continue spironolactone, but do not restart metolazone. Please have your primary doctor and cardiology clinic check your renal function at each appointment due to risk of acute kidney injury with too much diuresis. If you experience increased weight gain, worsening shortness of breath with laying flat, with exertion, or further gain more than 3 pounds in 2 days from here on, contact your doctor. Consider trial of eliminating lactose for 2 weeks from your diet to see if this may help your symptoms of abdominal distention and loose stools. In case your symptoms resolve with avoiding lactose you may have lactose intolerance. Please stop metoprolol due to noted slow heart rates down as low as into 30s. Please monitor your heart rate 3 times daily, alongside her blood pressure, and daily weight, write down values to bring to your appointment. In case you experience any symptoms of lightheadedness, weakness, or fainting, let your doctor know as you may need arrangements for environmental monitoring technician. With stopping metoprolol your slow heart rate should improve. Please do not take sildenafil (Viagra). Taken together with isosorbide or nitroglycerin can create dangerous side effects. Please discuss with your primary doctor and cardiology clinic how you may take this medication and whether holding isosorbide and avoiding nitroglycerin at the time is a possibility. If you experience any severe abdominal pain, vomiting, profuse diarrhea, high fever, significant shortness of breath, chest pain, continued worsening swelling despite diuretic use, or other concerning symptoms seek medical attention. Discharge Attestations Time Spent in Discharge Care*: greater than 30 min Status at Discharge: Cognitive status at discharge: cognitively intact, Behavioral status at discharge: cooperative, Quality Metrics Clinical Quality Measures [ No reported AMI, CVA or VTE this stay] Coding Level of Care Code Acute Chg FW DC note Diagnoses Fever R50.9 Abdominal distension R14.0 Acute exacerbation of CHF (congestive heart failure) I50.9 Abnormal weight gain R63.5
== END 2021-05-07 15:37 | disposition home or self-care (01) ==
LOC: ER 15:09 → MEDSURG 15:33
PROVIDERS: Physician Assistant; Admitting Provider Internal Medicine; Emergency Provider Emergency Medicine; PCP Family Medicine; Visit Provider Internal Medicine
DX: R50.9 Fever, unspecified (principal); R14.0 Abdominal distension (gaseous); R63.5 Abnormal weight gain; Z68.33 Body mass index [BMI] 33.0-33.9, adult; M79.89 Other specified soft tissue disorders; I50.30 Unspecified diastolic (congestive) heart failure; Z79.82 Long term (current) use of aspirin; Z99.81 Dependence on supplemental oxygen; G47.33 Obstructive sleep apnea (adult) (pediatric); N40.0 Benign prostatic hyperplasia without lower urinary tract symptoms; N18.9 Chronic kidney disease, unspecified; N40.1 Benign prostatic hyperplasia with lower urinary tract symptoms; N13.8 Other obstructive and reflux uropathy; I25.2 Old myocardial infarction
CPT/HCPCS: 36415; 71045; 80053; 81003; 83880; 84484; 85025; 87631; 87635; 93005; 93970; 96372; 96374; 99285; G0378; J1650; J1940

== ENCOUNTER → 2021-05-14 14:19 | Outpatient (BNVA) | payer MEDICARE, OTHER, SELFPAY | PROVIDERS: PCP Family Medicine; Visit Provider Nurse Practitioner Family | DX: Z09 Encounter for follow-up examination after completed treatment for conditions other than malignant neoplasm (principal); I50.9 Heart failure, unspecified; I25.2 Old myocardial infarction; Z87.891 Personal history of nicotine dependence | CPT/HCPCS: 99213 ==

== ENCOUNTER → 2021-05-17 10:13 | Outpatient (BNVA) | payer MEDICARE, OTHER, SELFPAY | PROVIDERS: PCP Family Medicine; Visit Provider Internal Medicine Cardiovascular Disease | DX: R55 Syncope and collapse (principal); I50.9 Heart failure, unspecified; R06.02 Shortness of breath; I73.9 Peripheral vascular disease, unspecified; Z87.891 Personal history of nicotine dependence | CPT/HCPCS: 99214 ==

== ENCOUNTER → 2021-05-21 12:44 | Outpatient (BNVA) | payer MEDICARE, OTHER, SELFPAY | PROVIDERS: PCP Family Medicine; Visit Provider Internal Medicine Critical Care Medicine | DX: J45.909 Unspecified asthma, uncomplicated (principal); G47.33 Obstructive sleep apnea (adult) (pediatric); I27.20 Pulmonary hypertension, unspecified; Z87.891 Personal history of nicotine dependence; I50.9 Heart failure, unspecified; I73.9 Peripheral vascular disease, unspecified; R63.5 Abnormal weight gain; R07.9 Chest pain, unspecified | CPT/HCPCS: 80048; 83735; 83880; 99214 ==

== ENCOUNTER → 2021-06-04 10:03 | Outpatient (BNVA) | payer MEDICARE, OTHER, SELFPAY | PROVIDERS: PCP Family Medicine; Visit Provider Nurse Practitioner Family | DX: I27.20 Pulmonary hypertension, unspecified (principal); I50.9 Heart failure, unspecified; Z87.891 Personal history of nicotine dependence | CPT/HCPCS: 36415; 80048; 83880; 99214 ==

== ENCOUNTER 2021-06-05 12:59 | Outpatient (CLI) | payer MEDICARE, OTHER, SELFPAY ==
--- NOTE | 2021-06-05 13:10 | XR_ITS ---
WS: [id number] Exam: XR shoulder LT min 2V* [id number] Date/Time of Exam: 06/05/2021 1:13 PM Reason For Exam: L SHOULDER PAIN No fracture or dislocation. Degenerative change of the AC joint. Normal soft tissues. XR/XR shoulder LT min 2V* [id number] IMPRESSION: 1. AC joint DJD. No fracture or other significant finding.
== END 2021-06-05 13:00 | disposition home or self-care (01) ==
LOC: RAD 13:02
PROVIDERS: PCP Family Medicine; Visit Provider Family Medicine
DX: M19.012 Primary osteoarthritis, left shoulder (principal)
CPT/HCPCS: 73030

== ENCOUNTER → 2021-06-21 10:21 | Outpatient (BNVA) | payer MEDICARE, OTHER, SELFPAY | PROVIDERS: PCP Family Medicine; Visit Provider Nurse Practitioner Family | DX: I27.20 Pulmonary hypertension, unspecified (principal); I50.9 Heart failure, unspecified; Z87.891 Personal history of nicotine dependence | CPT/HCPCS: 99213 ==